=== PATIENT | male | born 1960 | race Caucasian/White ===

== ENCOUNTER 2023-04-09 06:25 | Inpatient (IN) | payer MEDICARE, MEDICAID, SELFPAY ==
[2023-04-09] VITALS (7 sets, daily range): BP systolic 90–143; BP diastolic 51–73; PULSE 69–104; RESP 15–22; TEMP 36.3–38.3; O2SAT 92–98; BMI 26.4; BMI 28.0
--- NOTE | 2023-04-09 06:42 | ECG_ITS ---
Test Reason : WEAKNESS Blood Pressure : / mmHG Vent. Rate : 091 BPM Atrial Rate : 091 BPM P-R Int : 138 ms QRS Dur : 092 ms QT Int : 374 ms P-R-T Axes : 038 039 042 degrees QTc Int : 460 ms Normal sinus rhythm with sinus arrhythmia Normal ECG No previous ECGs available Referred By: Heidy Muhammad Electronically Signed By:KIMBERLY HOUSER MD
--- NOTE | 2023-04-09 06:45 | ED.GENADULT ---
HPI - General Adult General Chief complaint: General Medical Stated complaint: Possible Sepsis Alert Time Seen by Provider: 04/09/23 06:32 Source: EMS Mode of arrival: EMS Limitations: no limitations History of Present Illness HPI narrative: 82-year-old male who has a complex medical history including multiple sclerosis, bed-bound, chronic Ontiveros catheter, colostomy, chronic coccyx wound with wound VAC with multiple hospitalizations for osteomyelitis who presents to the ER with lethargy, nausea, fever since yesterday. Patient also complaining of some suprapubic discomfort and states his Ontiveros catheter was changed 2 days ago by a visiting nurse. He denies any vomiting, abdominal pain, diarrhea, headache, neck pain, neck stiffness, skin rash, chest pain, shortness of breath. Related Data Home Medications Medication Instructions Recorded Confirmed baclofen 20 mg tablet 20 mg PO QID 04/09/23 04/09/23 calcium carbonate 200 mg calcium 400 mg PO DAILY 04/09/23 04/09/23 (500 mg) chewable tablet (Tums) cholecalciferol (vitamin D3) 50 50 mcg PO DAILY 04/09/23 04/09/23 mcg (2,000 unit) capsule (Vitamin D3) docusate sodium 100 mg capsule 100 mg PO BID 04/09/23 04/09/23 gabapentin 300 mg capsule 900 mg PO TID 04/09/23 04/09/23 meloxicam 15 mg tablet 15 mg PO DAILY 04/09/23 04/09/23 methenamine hippurate 1 gram tablet 1 g PO BID 04/09/23 04/09/23 nystatin 100,000 unit/gram topical 1 appl topical BID PRN Rash 04/09/23 04/09/23 powder (Nystop) oxycodone-acetaminophen 5 mg-325 1 tab PO QID PRN Pain 04/09/23 04/09/23 mg tablet Allergies Allergy/AdvReac Type Severity Reaction Status Date / Time No Known Allergies Allergy Verified 04/09/23 10:18 Review of Systems Review of Systems: Yes all other systems are reviewed and are negative Constitutional: Constitutional: Reports no additional constitutional complaints, Denies body ache(s), Denies chills, Reports fever(s), Denies headache(s) and Reports weakness Eyes: Eyes: Reports no additional eye complaints and Denies change in vision ENT: Reports system reviewed and no additional complaints, except as documented, Denies dizziness, Denies headache(s), Denies nasal congestion, Denies nasal discharge and Denies neck pain Cardiovascular: Cardiovascular: Reports no additional cardiovascular complaints, Denies chest pain, Denies leg edema and Denies dyspnea Respiratory: Respiratory: Reports no additional respiratory complaints, Denies cough and Denies dyspnea Gastrointestinal: Gastrointestinal: Reports no additional gastrointestinal complaints, Reports abdominal pain, Denies diarrhea, Reports nausea and Denies vomiting Genitourinary: Genitourinary: Denies urinary incontinence Musculoskeletal: Musculoskeletal: Reports no additional musculoskeletal complaints, Denies back pain, Denies arthralgias, Denies joint swelling, Denies neck pain, Denies numbness and Denies tingling Integumentary/Breasts: Skin/Breast: Reports system reviewed and no additional complaints, except as docu and Denies rash Neurologic: Reports system reviewed and no additional complaints, except as documented, Denies dizziness, Denies headache(s), Denies numbness, Denies tingling and Reports weakness PMFSH Past Medical History Attestation statement: The following information was validated with the patient. Source: old records reviewed and nursing notes reviewed Social History Social History Advance Directives: Yes Advance Directives Information Provided: Yes Advance Directives on File: No Physical Exam ED Vital Signs: Vital Signs - 24 hr 04/09/23 06:32 04/09/23 07:04 04/09/23 08:59 Temperature 101.0 F H 98.4 F Pulse Rate 99 94 100 Respiratory Rate 15 20 22 H Blood Pressure 114/65 114/64 Pulse Oximetry 92 93 93 Oxygen Delivery Method Room Air Room Air Room Air BMI result Body Mass Index 26.4 Const General: cooperative, healthy appearing, comfortable and no acute distress Orientation/consciousness: patient oriented x3 Limitations: no limitations HENMT Head: Yes normal to inspection Ears: hearing grossly normal bilaterally Eyes General: appearance normal, both eyes and all related structures Pupils: Equal, round and reactive pupils present Neck Neck: Yes normal visual inspection, Yes full ROM, Yes no lymphadenopathy and Yes no meningeal signs Chest Chest palpation & inspection: normal inspection of the chest Resp Effort & Inspection: normal respiratory effort Auscultation: clear to auscultation bilaterally Cardio Rate: regular rate Rhythm: regular rhythm Peripheral pulses: Peripheral pulses 2+ throughout GI Other: +colostomy present LLQ Palpation (GI): Soft to palpation and nontender General: Yes no CVA tenderness Back/Spine/Pelvis Other: Back: no CVA tenderness Skin General skin exam: no rashes or lesions noted Neuro Other: +weakness all four extremities with increased tone in LE General: patient oriented x3 and no meningeal signs Cranial nerves: Yes Equal, round and reactive pupils present Extrem Other: +contracures General: Yes no pedal edema and Yes no calf tenderness Course Course Course Narrative: 899-CT abdomen pelvis consistent with osteomyelitis of the sacral wound. Will add vanco. UA also c/w with UTI however chronic ontiveros. Culture sent. Will admit Medications Administered Generic Name Dose Route Start Last Admin Trade Name Freq PRN Reason Stop Dose Admin Piperacillin Sod/Tazobactam 50 mls @ 100 mls/hr 04/09/23 09:45 04/09/23 10:52 Sod 3.375 gm/ Sodium Chloride IV 100 mls/hr Q6H RAVI Administration Discontinued Medications Generic Name Dose Route Start Last Admin Trade Name Freq PRN Reason Stop Dose Admin Acetaminophen 650 mg 04/09/23 06:43 04/09/23 07:03 Acetaminophen 325 Mg Tablet PO 04/09/23 06:44 650 mg ONCE ONE Administration Sodium Chloride 1,000 mls @ 999 mls/hr 04/09/23 06:42 04/09/23 08:30 Ns IV 04/09/23 07:42 Infused .Q1H1M STA Infusion Cefepime HCl 2 gm/ Sodium 50 mls @ 100 mls/hr 04/09/23 06:45 04/09/23 08:30 Chloride IV 04/09/23 07:14 Infused ONCE ONE Infusion Vancomycin HCl 2,000 mg in 500 mls @ 250 mls/hr 04/09/23 08:57 04/09/23 09:16 Vancomycin/Ns IV 04/09/23 10:56 250 mls/hr ONCE ONE Administration Iohexol 85 ml 04/09/23 08:25 04/09/23 08:26 Iohexol 350 Mg/Ml 100 Ml Infus..Btl IV 04/09/23 08:26 85 ml ONCE ONE Administration Morphine Sulfate 4 mg 04/09/23 10:19 04/09/23 10:52 Morphine Sulfate 4 Mg/Ml Cartridge IVPUSH 04/09/23 10:20 4 mg ONCE ONE Administration Protocol Medical Decision Making Medical Decision Making [facility] Narrative: This 62-year-old male who has a complex medical history including MS, bedbound, chronic colostomy/chronic Ontiveros/wound VAC due to coccyx wound who presents to the ER with complaints of lethargy, fevers, nausea since yesterday. On arrival patient is febrile with a temp of 101 degrees F. Patient took 1 Percocet prior to arrival which he takes for chronic pain. Patient is alert and oriented. He has clear lung sounds, soft abdomen, no meningeal signs or lymphadenopathy. He does have a wound VAC present to the coccyx with some mild erythema surrounding the site. There is no tracking to the perineum. Patient will need labs including blood cultures and lactic acid, UA, chest x-ray, COVID screen, CT with contrast At this time infection is suspected. Antibiotics ordered. Anticipate admit Sepsis alert started Differential Diagnosis Differential Diagnoses: The differential diagnosis associated with the presentation includes UTI, coccyx osteomyelitis, pneumonia, pyelonephritis low concern for fourniers gangrene, nec fasc Admission/Observation Consideration of admission/observation: Escalation of care including admission/observation considered Patient with osteomyelitis of the sacral wound question acute versus chronic, UTI, fever with leukocytosis necessitating admission for IV antibiotics and further evaluation Consult Healthcare Provider Management of the patient was discussed with: Hospitalist Alejandra Fox CATTERY OPERATOR-accepted admission at 0900 Lab Data [facility] Lab Attestation statement: I reviewed the patient's lab results. 04/09/23 06:46 04/09/23 06:46 Labs: Lab Results 04/09/23 04/09/23 04/09/23 Range/Units 06:46 06:46 06:46 WBC 15.8 H (4.8-10.8) X10*3/uL RBC 4.60 (4.60-5.80) X10*6/uL Hgb 12.7 L (14.0-18.0) g/dl Hct 38.2 L (42.0-52.0) % MCV 83.0 (80.0-98.0) fL MCH 27.6 (27.0-33.0) pg MCHC 33.2 (31.0-36.0) g/dl RDW 14.7 (11.0-16.0) % Plt Count 346 (160-400) X10*3/uL MPV 8.3 L (9.4-12.4) fL Immature Gran % (Auto) 0.4 (0.0-0.4) % Neut % (Auto) 93.8 H (45-73) % Lymph % (Auto) 2.1 L (20-40) % [place] % (Auto) 3.4 (2-11) % Eos % (Auto) 0.1 (0-4) % Baso % (Auto) 0.2 (0-2) % Lymph # (Auto) 0.3 L (1.2-4.9) X10*3/uL [place] # (Auto) 0.5 (0.1-1.2) X10*3/uL Eos # (Auto) 0.0 (0.0-0.4) X10*3/uL Baso # (Auto) 0.0 (0.0-0.2) X10*3/uL Abs Immat Gran (auto) 0.06 H (0.00-0.03) X10*3/uL Absolute Neuts (auto) 14.9 H (2.0-8.3) x10*3/uL Absolute Nucleated RBC 0.000 (0.0-0.012) X10*3/uL Nucleated RBC % (auto) 0.0 (0.0-0.2) /100WBC Smear Tech's Comments VERIFIED PT 13.3 H (10.0-13.1) SEC INR 1.2 H (0.9-1.1) Sodium 127 L (135-145) mmol/L Potassium 3.8 (3.3-5.1) mmol/L Chloride 92 L (96-108) mmol/L Carbon Dioxide 24 (22-29) mmol/L Anion Gap 15 (12-20) BUN 12 (9-16) mg/dL Creatinine 0.61 (0.5-1.4) mg/dL Estim Creat Clear Calc 143.7 Estimated GFR > 60 Random Glucose 112 (60-115) mg/dL Lactic Acid (0.5-2.0) mmol/L Calcium 9.4 (8.4-10.2) mg/dL Magnesium 1.7 (1.6-2.6) mg/dL Total Bilirubin 0.6 (0.0-1.0) mg/dL Direct Bilirubin 0.2 (0.0-0.5) mg/dL AST 14 (5-37) U/L ALT 11 (0-40) U/L Alkaline Phosphatase 36 L (39-117) U/L Total Creatine Kinase 43 (38-174) U/L Troponin I High Sens (<3.5-35.0) ng/L Total Protein 7.0 (6.5-8.0) g/dL Albumin 3.3 L (3.5-5.0) g/dL Urine Color Urine Appearance Urine pH (5.0-9.0) Ur Specific [place] (1.005-1.025) Urine Protein (Neg-Trace) mg/dL Urine Glucose (UA) (Negative) mg/dL Urine Ketones (Negative) mg/dL Urine Blood (Negative) Urine Nitrite (Negative) Ur Leukocyte Esterase (Negative) Urine RBC (0-2) /HPF Urine WBC (0-5) /HPF Urine WBC Clumps Ur Squamous Epith Cells (0-2) /HPF Urine Bacteria (None Seen) Hyaline Casts (0-2) /LPF COVID-19 (ZULEIMA) (Negative) COVID-19 Clin Com 04/09/23 04/09/23 04/09/23 Range/Units 06:46 06:46 06:46 WBC (4.8-10.8) X10*3/uL RBC (4.60-5.80) X10*6/uL Hgb (14.0-18.0) g/dl Hct (42.0-52.0) % MCV (80.0-98.0) fL MCH (27.0-33.0) pg MCHC (31.0-36.0) g/dl RDW (11.0-16.0) % Plt Count (160-400) X10*3/uL MPV (9.4-12.4) fL Immature Gran % (Auto) (0.0-0.4) % Neut % (Auto) (45-73) % Lymph % (Auto) (20-40) % [place] % (Auto) (2-11) % Eos % (Auto) (0-4) % Baso % (Auto) (0-2) % Lymph # (Auto) (1.2-4.9) X10*3/uL [place] # (Auto) (0.1-1.2) X10*3/uL Eos # (Auto) (0.0-0.4) X10*3/uL Baso # (Auto) (0.0-0.2) X10*3/uL Abs Immat Gran (auto) (0.00-0.03) X10*3/uL Absolute Neuts (auto) (2.0-8.3) x10*3/uL Absolute Nucleated RBC (0.0-0.012) X10*3/uL Nucleated RBC % (auto) (0.0-0.2) /100WBC Smear Tech's Comments PT (10.0-13.1) SEC INR (0.9-1.1) Sodium (135-145) mmol/L Potassium (3.3-5.1) mmol/L Chloride (96-108) mmol/L Carbon Dioxide (22-29) mmol/L Anion Gap (12-20) BUN (9-16) mg/dL Creatinine (0.5-1.4) mg/dL Estim Creat Clear Calc Estimated GFR Random Glucose (60-115) mg/dL Lactic Acid 0.7 (0.5-2.0) mmol/L Calcium (8.4-10.2) mg/dL Magnesium (1.6-2.6) mg/dL Total Bilirubin (0.0-1.0) mg/dL Direct Bilirubin (0.0-0.5) mg/dL AST (5-37) U/L ALT (0-40) U/L Alkaline Phosphatase (39-117) U/L Total Creatine Kinase (38-174) U/L Troponin I High Sens < 2.7 (<3.5-35.0) ng/L Total Protein (6.5-8.0) g/dL Albumin (3.5-5.0) g/dL Urine Color Yellow Urine Appearance Cloudy Urine pH 6.5 (5.0-9.0) Ur Specific [place] 1.010 (1.005-1.025) Urine Protein Trace (Neg-Trace) mg/dL Urine Glucose (UA) Negative (Negative) mg/dL Urine Ketones Negative (Negative) mg/dL Urine Blood Large (3+) H (Negative) Urine Nitrite Negative (Negative) Ur Leukocyte Esterase Large (3+) H (Negative) Urine RBC 3-5 H (0-2) /HPF Urine WBC >50 H (0-5) /HPF Urine WBC Clumps Present Ur Squamous Epith Cells 0-2 (0-2) /HPF Urine Bacteria 4+ (None Seen) Hyaline Casts 3-5 (0-2) /LPF COVID-19 (ZULEIMA) (Negative) COVID-19 Clin Com 04/09/23 Range/Units 07:19 WBC (4.8-10.8) X10*3/uL RBC (4.60-5.80) X10*6/uL Hgb (14.0-18.0) g/dl Hct (42.0-52.0) % MCV (80.0-98.0) fL MCH (27.0-33.0) pg MCHC (31.0-36.0) g/dl RDW (11.0-16.0) % Plt Count (160-400) X10*3/uL MPV (9.4-12.4) fL Immature Gran % (Auto) (0.0-0.4) % Neut % (Auto) (45-73) % Lymph % (Auto) (20-40) % [place] % (Auto) (2-11) % Eos % (Auto) (0-4) % Baso % (Auto) (0-2) % Lymph # (Auto) (1.2-4.9) X10*3/uL [place] # (Auto) (0.1-1.2) X10*3/uL Eos # (Auto) (0.0-0.4) X10*3/uL Baso # (Auto) (0.0-0.2) X10*3/uL Abs Immat Gran (auto) (0.00-0.03) X10*3/uL Absolute Neuts (auto) (2.0-8.3) x10*3/uL Absolute Nucleated RBC (0.0-0.012) X10*3/uL Nucleated RBC % (auto) (0.0-0.2) /100WBC Smear Tech's Comments PT (10.0-13.1) SEC INR (0.9-1.1) Sodium (135-145) mmol/L Potassium (3.3-5.1) mmol/L Chloride (96-108) mmol/L Carbon Dioxide (22-29) mmol/L Anion Gap (12-20) BUN (9-16) mg/dL Creatinine (0.5-1.4) mg/dL Estim Creat Clear Calc Estimated GFR Random Glucose (60-115) mg/dL Lactic Acid (0.5-2.0) mmol/L Calcium (8.4-10.2) mg/dL Magnesium (1.6-2.6) mg/dL Total Bilirubin (0.0-1.0) mg/dL Direct Bilirubin (0.0-0.5) mg/dL AST (5-37) U/L ALT (0-40) U/L Alkaline Phosphatase (39-117) U/L Total Creatine Kinase (38-174) U/L Troponin I High Sens (<3.5-35.0) ng/L Total Protein (6.5-8.0) g/dL Albumin (3.5-5.0) g/dL Urine Color Urine Appearance Urine pH (5.0-9.0) Ur Specific [place] (1.005-1.025) Urine Protein (Neg-Trace) mg/dL Urine Glucose (UA) (Negative) mg/dL Urine Ketones (Negative) mg/dL Urine Blood (Negative) Urine Nitrite (Negative) Ur Leukocyte Esterase (Negative) Urine RBC (0-2) /HPF Urine WBC (0-5) /HPF Urine WBC Clumps Ur Squamous Epith Cells (0-2) /HPF Urine Bacteria (None Seen) Hyaline Casts (0-2) /LPF COVID-19 (ZULEIMA) Negative (Negative) COVID-19 Clin Com See Note Independent Interpretation I performed an independent interpretation of an: Plain X-Ray and CT Scan Interpretation: I independently reviewed the chest x-ray and CT A/P and agree with radiologist's report I independently reviewed the EKG which shows normal sinus rhythm with a rate 94, normal HI, normal QRS, normal QT Radiology Impression Discussion of test interpretation with radiology: I have reviewed the radiologist's reading. Radiologist Impression: [address] [id number] XRay Report Signed Patient: Jono Davey#: [id number] : 1960 Acct:[id number] Age/Sex: 62 / M ADM Date: 04/09/23 Loc: HO.ED Attending Dr: Ordering Physician: Heidy Israel NP Date of Service: 04/09/23 Procedure(s): XR chest 1V Accession Number(s): [id number] cc: Heidy Israel NP~ EXAMINATION: XR CHEST CLINICAL INFORMATION: Fever COMPARISON: None available. TECHNIQUE: Frontal view of the chest was obtained. FINDINGS: A few linear, streaky opacities of atelectasis are present at the left base. The left lateral costophrenic sulcus is ill-defined (possible trace pleural effusion). The left diaphragm is mildly elevated. Cardiac silhouette has normal size and contour. Pulmonary vascular pattern is normal. The visualized bones are intact. XR/XR chest 1V IMPRESSION: *? A few linear, streaky opacities of atelectasis are present at the left base. *? No consolidation is seen. No overt pneumonia. *? Possible trace left pleural effusion. ? FINDINGS: LUNG BASES: There is a left posterior pleural thickening with chronic scarring or atelectasis.? LIVER, GALLBLADDER, AND BILIARY TREE: The liver is normal in size, shape, and attenuation. There is a small 1.2 cm hypodensity seen in the right hepatic lobe measuring cyst. Density. No additional lesions seen. No intrahepatic ductal dilatation. The gallbladder is unremarkable with no evidence of radiopaque gallstones, gallbladder wall thickening, or obvious pericholecystic inflammatory changes.? PANCREAS: Unremarkable.? SPLEEN: Unremarkable.? ADRENAL GLANDS: Unremarkable.? KIDNEYS AND URETERS: The kidneys are normal in size, shape, and attenuation. No radiopaque calculi seen.There is a 9 mm hypodensity in the upper midpole cortex right kidney measuring cyst is ready. There is bilateral hydroureteronephrosis without any obstructive etiology seen. BLADDER: The bladder is significant distended extending to the umbilicus likely from ureteral obstruction. Question urethral stricture or valve prostate enlargement.? GASTROINTESTINAL TRACT: Moderate scattered stool and gas is seen throughout the colon without distention. There is a left mid quadrant colostomy. A proximal blind ending sigmoid colon is seen ABDOMINAL WALL: No significant hernia is appreciated.? LYMPH NODES: Normal. VASCULAR: Mild arthroscopic changes of abdominal aorta noted without aneurysmal dilatation. PELVIC VISCERA: No free fluid or free air seen. There is midline decubitus sacrococcygeal ulcer with soft tissue gas and induration. The wound is open but no drainable abscess seen. There has been erosion of distal sacrum and ? coccyx with sclerosis involving the distal sacral bone suggestive of osteomyelitis. There is presacral soft tissue thickening but no abscess seen either. OSSEOUS STRUCTURES: Besides sacrococcygeal ostium myelitis rest of the thoracolumbar and sacral spine is unremarkable. No fracture seen.? CT/CT abdomen pelvis w IV con IMPRESSION: Osteomyelitis of the sacrococcygeal spine from an open midline sacral decubitus ulcer. There is significant induration and debris within the open ulcer. No discrete abscess is seen. There is mild presacral soft tissue swelling. ? Bilateral mild to moderate hydroureteronephrosis likely secondary to ureteral spasm, stricture or mild prostate enlargement. ? Mild left posterior pleural thickening with left lower lobe scarring and/or atelectasis. ? Punctate hepatic and upper/mid pole right renal cysts. ? Fleischner guidelines were followed. Independent Historian Clinical information obtained from an independent historian. History obtained from or confirmed by: EMS clinical information was obtained from EMS and confirmed with the patient Critical Care Time Critical Care Time Critical Care Time: Yes Total Critical Care Time: 45 Attestation: d/w with patient and family, admission for osteomyelitis/SIRS, spoke to medicine for admit Discharge Plan Discharge Clinical Impression: Osteomyelitis, Acute UTI, Leukocytosis Patient Disposition: Admitted As Inpatient
--- NOTE | 2023-04-09 09:56 | PC.NURSE ---
wound vac removed by provider, dressing applied to site.
--- NOTE | 2023-04-09 10:18 | PHA.MEDREC ---
Pharmacy Consult ? Medication Reconciliation Pharmacy has completed the medication reconciliation. spoke with patient to confirm medications. He says the baclofen is QID but last claim is from 01/04/23 for a 5 day supply.
--- NOTE | 2023-04-09 10:20 | PHA.PROG ---
Admission Date/Time: April 09, 2023 09:42 Indication: SKIN/STRUCTURE Weight in k.718 kg Adjusted body weight in K.227 [place] body weight in K.9 Obesity Dosing Indication % IBW: Serum Creatinine - Last 168 Hours 04/09/23 06:46 Creatinine 0.61 Estimated CrCl and GFR - Last 168 Hours 04/09/23 06:46 Estim Creat Clear Calc 143.7 Estimated GFR > 60 Vancomycin Loading Dose: 2000 MG Current Vancomycin Dosing Regimen: 1500 MG Q12 Vancomycin Monitoring using AUC goal of 400 - 600 range with trough as surrogate marker: 554 Date and Time for next Vancomycin Level to be drawn: 04/10/23 @1900 Pharmacist Comments on Vancomycin Plan: Vancomycin dosing will take advantage of [employer] as a clinical decision support tool that uses Bayesian modeling to calculate individual patient's pharmacokinetic parameters and forecast the patient's drug concentration time course with the target goal AUC 24 range of 400 - 600 mg/L/hr.
--- NOTE | 2023-04-09 12:02 | PC.NURSE ---
Patient stating that he doesn't think that his catheter is working properly, catheter changed and 1100 ml of urine came out. Patient stating that some relief after catheter change.
--- NOTE | 2023-04-09 14:35 | PM.IMHP ---
History of Present Illness Date of Service: 04/09/23 Chief Complaint: fever 62-year-old man presenting from home with fever, general malaise and nausea over the last several days. He does have a history of MS and is mostly bed/wheelchair bound. He denied any recent travel, sick contacts, chest pain, shortness of breath, vomiting, diarrhea, recent illness. His last hospitalization was in October of 2022 at [facility]. He has been in his usual state of health more recently. His sodium was low at 127, white blood cell count 15.8, all other labs are within acceptable limits. He was noted to have fever of 101.0, tachycardia, tachypnea, normal lactic acid. UA was positive. In the ER he received 1 L of IV fluid, Tylenol, cefepime, vancomycin, Zosyn. He will be admitted for further management and treatment of sepsis secondary to UTI and chronic osteomyelitis. Review of Systems Review of Systems: Denies any recent fever chills or decrease in appetite respiratory denies any shortness of breath coverage production cardiovascular Denied chest pain gastrointestinal denies any dysphagia abdominal pain nausea vomiting or diarrhea genitourinary denies any dysuria frequency or hematuria musculoskeletal non ambulatory neuropsych denies any weakness or seizures all other systems reviewed are negative [facility] Medical History (Updated 04/09/23 @ 13:08 by Nancy Chaidez RN) Multiple sclerosis Osteomyelitis Sacral decubitus ulcer Social History Household Members: None Household Members Other:: Daughter lives upstairs in seperate apartment Housing: Apartment Do you presently have visiting nurse or other home services: Yes Patient Tobacco Use Status: Never used Tobacco Use of substances other than those prescribed or required for medical reasons: No Currently Displaying Signs/Symptoms of Drug Intoxication Withdrawal: No Have you been hit, kicked, punched, or otherwise hurt by someone within the past year? If so, by whom?: No Do you feel safe in your current relationship?: No Current Relationship Is there a partner from a previous relationship who is making you feel unsafe now?: No Are you made to feel afraid or neglected: No Spiritual Healthcare Practices: none per patient Spiritism Healthcare Practices: none per patient Cultural Healthcare Practices: none per patient Advance Directives: Yes Advance Directives Information Provided: Yes Advance Directives on File: No Advance Directives Date on File: 04/09/23 Do you have thoughts of harming others: None Do you have a plan to hurt others: No Plan Recently lost weight without trying: No Eating poorly because of decreased appetite: No Nutrition Risks: No Nutritional Risk Poor oral hygiene: No Meds Allergies Allergy/AdvReac Type Severity Reaction Status Date / Time No Known Allergies Allergy Verified 04/09/23 10:18 Active Medications: Current Medications Acetaminophen (Acetaminophen 325 Mg Tablet) 650 mg PO Q6H PRN PRN Reason: Pain, Mild (Pain Scale 1-3) Baclofen (Baclofen 20 Mg Tablet) 20 mg PO QID [facility] Docusate Sodium (Docusate Sodium 100 Mg Capsule) 100 mg PO BID [facility] Gabapentin (Gabapentin 300 Mg Capsule) 900 mg PO TID [facility] Heparin Sodium (Porcine) (Heparin Sodium,Porcine 5,000 Unit/Ml Vial) 5,000 unit SUBCUT Q12H [facility] Piperacillin Sod/Tazobactam (Sod 3.375 gm/ Sodium Chloride) 50 mls @ 100 mls/hr IV Q6H [facility] Last Infusion: 04/09/23 11:47 Dose: Infused Vancomycin HCl 1,500 mg/ (Sodium Chloride) 500 mls @ 333.333 mls/hr IV Q12H [facility] Non-Formulary Medication (Calcium Carbonate [Tums]) 400 mg PO DAILY [facility] Non-Formulary Medication (Meloxicam) 15 mg PO DAILY [facility] Non-Formulary Medication (Methenamine Hippurate) 1 gm PO BID [facility] Non-Formulary Medication (Oxycodone-Acetaminophen) 1 tab PO QID PRN PRN Reason: Pain Ondansetron HCl (Ondansetron Hcl 4 Mg/2 Ml Vial) 4 mg IVPUSH Q8H PRN PRN Reason: Nausea and Vomiting Pharmacy Consult (Consult Rx Perform Med Rec) 1 each MISCELLANE ONCE PRN PRN Reason: Consult order Pharmacy Consult (Consult Rx Vancomycin Dosing) 1 each MISCELLANE DAILY PRN PRN Reason: Consult order Sodium Chloride (0.9 % Sodium Chloride Flush 3 Ml Syringe) 3 ml IVFLUSH QSHIFT [facility] Vitamin D (Cholecalciferol (Vitamin D3) 25 Mcg Tablet) 50 mcg PO DAILY [facility] Home Medications Medication Instructions Recorded Confirmed Last Taken Type baclofen 20 mg tablet 20 mg PO QID 04/09/23 04/09/23 04/08/23 20:00 History calcium carbonate 200 mg calcium 400 mg PO DAILY 04/09/23 04/09/23 04/08/23 07:00 History (500 mg) chewable tablet (Tums) cholecalciferol (vitamin D3) 50 50 mcg PO DAILY 04/09/23 04/09/23 04/08/23 07:00 History mcg (2,000 unit) capsule (Vitamin D3) docusate sodium 100 mg capsule 100 mg PO BID 04/09/23 04/09/23 04/08/23 20:00 History gabapentin 300 mg capsule 900 mg PO TID 04/09/23 04/09/23 04/08/23 20:00 History meloxicam 15 mg tablet 15 mg PO DAILY 04/09/23 04/09/23 04/08/23 20:00 History methenamine hippurate 1 gram tablet 1 g PO BID 04/09/23 04/09/23 Unknown History nystatin 100,000 unit/gram topical 1 appl topical BID PRN Rash 04/09/23 04/09/23 04/08/23 07:00 History powder (Nystop) oxycodone-acetaminophen 5 mg-325 1 tab PO QID PRN Pain 04/09/23 04/09/23 Unknown History mg tablet Physical Exam Vital Signs and Narrative: Vital Signs: Last Vital Signs Temp 97.3 F 04/09/23 12:43 Pulse 101 H 04/09/23 12:43 Resp 20 04/09/23 12:43 BP 143/73 H 04/09/23 12:43 Pulse Ox 98 04/09/23 12:43 O2 Del Method Room Air 04/09/23 12:43 BMI result Body Mass Index 28.0 Appearing in no acute distress head is normocephalic atraumatic eyes pupils are PERRLA sclera is anicteric mouth throat mucous membranes are intact and moist neck is supple no lymphadenopathy, no JVD noted lung sounds are clear to auscultation heart regular rate rhythm, clear S1, S2 positive bowel sounds, abdomen is soft, nontender neuro patient is alert x3, no focal deficits Nonambulatory Results Labs 04/09/23 06:46 04/09/23 06:46 Labs: Laboratory Results - last 24 hr 04/09/23 04/09/23 04/09/23 06:46 06:46 06:46 MCV 83.0 MCH 27.6 MCHC 33.2 RDW 14.7 Plt Count 346 MPV 8.3 L Immature Gran % (Auto) 0.4 Neut % (Auto) 93.8 H Lymph % (Auto) 2.1 L [place] % (Auto) 3.4 Eos % (Auto) 0.1 Baso % (Auto) 0.2 Lymph # (Auto) 0.3 L [place] # (Auto) 0.5 Eos # (Auto) 0.0 Baso # (Auto) 0.0 Abs Immat Gran (auto) 0.06 H Absolute Neuts (auto) 14.9 H Absolute Nucleated RBC 0.000 Nucleated RBC % (auto) 0.0 Smear Tech's Comments VERIFIED PT 13.3 H INR 1.2 H Anion Gap 15 Estim Creat Clear Calc 143.7 Estimated GFR > 60 Random Glucose 112 Lactic Acid Calcium 9.4 Magnesium 1.7 Total Bilirubin 0.6 Direct Bilirubin 0.2 AST 14 ALT 11 Alkaline Phosphatase 36 L Total Creatine Kinase 43 Troponin I High Sens Total Protein 7.0 Albumin 3.3 L Urine Color Urine Appearance Urine pH Ur Specific [place] Urine Protein Urine Glucose (UA) Urine Ketones Urine Blood Urine Nitrite Ur Leukocyte Esterase Urine RBC Urine WBC Urine WBC Clumps Ur Squamous Epith Cells Urine Bacteria Hyaline Casts COVID-19 ([facility]) COVID-19 Clin Com 04/09/23 04/09/23 04/09/23 06:46 06:46 06:46 MCV MCH MCHC RDW Plt Count MPV Immature Gran % (Auto) Neut % (Auto) Lymph % (Auto) [place] % (Auto) Eos % (Auto) Baso % (Auto) Lymph # (Auto) [place] # (Auto) Eos # (Auto) Baso # (Auto) Abs Immat Gran (auto) Absolute Neuts (auto) Absolute Nucleated RBC Nucleated RBC % (auto) Smear Tech's Comments PT INR Anion Gap Estim Creat Clear Calc Estimated GFR Random Glucose Lactic Acid 0.7 Calcium Magnesium Total Bilirubin Direct Bilirubin AST ALT Alkaline Phosphatase Total Creatine Kinase Troponin I High Sens < 2.7 Total Protein Albumin Urine Color Yellow Urine Appearance Cloudy Urine pH 6.5 Ur Specific [place] 1.010 Urine Protein Trace Urine Glucose (UA) Negative Urine Ketones Negative Urine Blood Large (3+) H Urine Nitrite Negative Ur Leukocyte Esterase Large (3+) H Urine RBC 3-5 H Urine WBC >50 H Urine WBC Clumps Present Ur Squamous Epith Cells 0-2 Urine Bacteria 4+ Hyaline Casts 3-5 COVID-19 ([facility]) COVID-19 Clin Com 04/09/23 07:19 MCV MCH MCHC RDW Plt Count MPV Immature Gran % (Auto) Neut % (Auto) Lymph % (Auto) [place] % (Auto) Eos % (Auto) Baso % (Auto) Lymph # (Auto) [place] # (Auto) Eos # (Auto) Baso # (Auto) Abs Immat Gran (auto) Absolute Neuts (auto) Absolute Nucleated RBC Nucleated RBC % (auto) Smear Tech's Comments PT INR Anion Gap Estim Creat Clear Calc Estimated GFR Random Glucose Lactic Acid Calcium Magnesium Total Bilirubin Direct Bilirubin AST ALT Alkaline Phosphatase Total Creatine Kinase Troponin I High Sens Total Protein Albumin Urine Color Urine Appearance Urine pH Ur Specific [place] Urine Protein Urine Glucose (UA) Urine Ketones Urine Blood Urine Nitrite Ur Leukocyte Esterase Urine RBC Urine WBC Urine WBC Clumps Ur Squamous Epith Cells Urine Bacteria Hyaline Casts COVID-19 ([facility]) Negative COVID-19 Clin Com See Note Imaging Radiologist's Impressions: Impressions Chest X-Ray 04/09/23 06:57 IMPRESSION: * A few linear, streaky opacities of atelectasis are present at the left base. * No consolidation is seen. No overt pneumonia. * Possible trace left pleural effusion. Abdomen/Pelvis CT 04/09/23 08:26 IMPRESSION: Osteomyelitis of the sacrococcygeal spine from an open midline sacral decubitus ulcer. There is significant induration and debris within the open ulcer. No discrete abscess is seen. There is mild presacral soft tissue swelling. Bilateral mild to moderate hydroureteronephrosis likely secondary to ureteral spasm, stricture or mild prostate enlargement. Mild left posterior pleural thickening with left lower lobe scarring and/or atelectasis. Punctate hepatic and upper/mid pole right renal cysts. Fleischner guidelines were followed. Assessment and Plan (1) Osteomyelitis: Status: Acute (2) Acute UTI: Status: Acute Plan 62 year old man admitted with fever, lethargy and nausea. He has a hx of MS and is bed and wheelchair bound. Sepsis secondary to UTI more likely secondary to UTI rather than coccyx wound Rocephin follow urine cx Chronic osteomyelitis with unstagable coccyx wound wound bed and surrounding skin look good wound vac removed general surgery consult for assessment for debridement Dry dressing for now Hyponatremia NA 127 likely from hypovolemia received 1 liter IV fluids check sodium this afternoon MS baseline continue baclofen, neurontin DVT prophylaxis with Heparin Full code Two inpatient midnights for treatment of sepsis secondary to urinary tract infection requiring IV antibiotics and close monitoring Time Spent With Patient Time: Total time managing care of this patient today ____ minutes. Quality Stroke Does the patient have a stroke diagnosis?: No VTE Prior VTE?: No VTE Risk Level:: Medical - moderate - high VTE Device Contraindication: Treatment Not Indicated VTE Drug Contraindication: N/A - Med Ordered
[2023-04-09] MEDS: Gabapentin 300 MG CAPSULE 900 MG PO ×2 (14:46→20:30)
[2023-04-09] MEDS: Heparin Sodium,Porcine 5,000 UNIT/ML VIAL 5000 UNIT SUBCUT (14:46)
[2023-04-09] MEDS: Baclofen 20 MG TABLET PO ×2 (16:02→20:30)
[2023-04-09] MEDS: oxyCODONE HCl Immed Release 5 MG TABLET PO (20:29)
[2023-04-09] MEDS: Docusate Sodium 100 MG CAPSULE PO (20:30)
[2023-04-09] MEDS: NaPROXEN 500 MG TABLET PO (20:30)
[2023-04-10] MEDS: Heparin Sodium,Porcine 5,000 UNIT/ML VIAL 5000 UNIT SUBCUT ×2 (03:18→15:44)
[2023-04-10 03:19] VITALS: BP 96/55; PULSE 67; RESP 18; TEMP 36.2; O2SAT 97
[2023-04-10] MEDS: Acetaminophen 325 MG TABLET 650 MG PO ×3 (03:41→20:39)
[2023-04-10 07:45] VITALS: BP 102/59; PULSE 70; RESP 18; TEMP 36.3; O2SAT 98
--- NOTE | 2023-04-10 08:32 | MHC.CM.PN ---
CM met with Patient at bedside and addressed IMM with him, providing him with the original and placing a copy on the chart. Patient lives alone in an apartment and he is mostly w/c/bed bound r/t MS. Home/resume said services is the goal and CM has initiated and will follow for dc planning.Patient's Daughter/Loida is the HCP. Patient is sisiid arlene'd and the PCP/JUTE BAG CLIPPER is Ambrocio Tenorio.
[2023-04-10] MEDS: Gabapentin 300 MG CAPSULE 900 MG PO ×3 (08:39→23:01)
[2023-04-10] MEDS: NaPROXEN 500 MG TABLET PO ×2 (08:40→20:40)
[2023-04-10] MEDS: Docusate Sodium 100 MG CAPSULE PO ×2 (08:40→20:40)
[2023-04-10] MEDS: Baclofen 20 MG TABLET PO ×4 (08:40→20:39)
[2023-04-10] MEDS: oxyCODONE HCl Immed Release 5 MG TABLET PO ×2 (08:40→15:45)
[2023-04-10] MEDS: Cholecalciferol (Vitamin D3) 25 MCG TABLET 50 MCG PO (08:40)
--- NOTE | 2023-04-10 09:17 | HO.PM.IMPN ---
Subjective Subjective Date of Service: 04/10/23 Review of Systems Follow up Sepsis, UTI Doing better, no pain mostly chair/bedbound Physical Exam Vital Signs: Vital Signs: Last Vital Signs Temp 97.3 F 04/10/23 07:45 Pulse 70 04/10/23 07:45 Resp 18 04/10/23 07:45 BP 102/59 L 04/10/23 07:45 Pulse Ox 98 04/10/23 07:45 O2 Del Method Room Air 04/10/23 07:45 BMI result Body Mass Index 28.0 Appearing in no acute distress lung sounds are clear to auscultation heart regular rate rhythm, clear S1, S2 positive bowel sounds, abdomen is soft, nontender neuro patient is alert x3, no focal deficits Chronic coccyx wound, surrounding skin intact, no wound drainage Objective Data Active Medications Acetaminophen (Acetaminophen 325 Mg Tablet) 650 mg PO Q6H PRN PRN Reason: Pain, Mild (Pain Scale 1-3) Last Admin: 04/10/23 03:41 Dose: 650 mg Documented By: CARLTON Baclofen (Baclofen 20 Mg Tablet) 20 mg PO QID [facility] Last Admin: 04/10/23 08:40 Dose: 20 mg Documented By: ANASTASIA Calcium Carbonate (Calcium Carbonate 500 Mg Tablet) 500 mg PO DAILY [facility] Last Admin: 04/10/23 08:41 Dose: 500 mg Documented By: ANASTASIA Docusate Sodium (Docusate Sodium 100 Mg Capsule) 100 mg PO BID [facility] Last Admin: 04/10/23 08:40 Dose: 100 mg Documented By: ANASTASIA Gabapentin (Gabapentin 300 Mg Capsule) 900 mg PO TID [facility] Last Admin: 04/10/23 08:39 Dose: 900 mg Documented By: ANASTASIA Heparin Sodium (Porcine) (Heparin Sodium,Porcine 5,000 Unit/Ml Vial) 5,000 unit SUBCUT Q12H [facility] Last Admin: 04/10/23 03:18 Dose: 5,000 unit Documented By: CARLTON Piperacillin Sod/Tazobactam (Sod 3.375 gm/ Sodium Chloride) 50 mls @ 100 mls/hr IV Q6H [facility] Last Infusion: 04/10/23 05:37 Dose: 0 mls/hr Documented By: CARLTON Vancomycin HCl 1,500 mg/ (Sodium Chloride) 500 mls @ 333.333 mls/hr IV Q12H [facility] Last Admin: 04/10/23 08:41 Dose: 333.3 mls/hr Documented By: ANASTASIA Naproxen (Naproxen 500 Mg Tablet) 500 mg PO BID [facility] Last Admin: 04/10/23 08:40 Dose: 500 mg Documented By: ANASTASIA Ondansetron HCl (Ondansetron Hcl 4 Mg/2 Ml Vial) 4 mg IVPUSH Q8H PRN PRN Reason: Nausea and Vomiting Oxycodone HCl (Oxycodone Hcl Immed Release 5 Mg Tablet) 5 mg PO QID PRN PRN Reason: Pain, Moderate(Pain Scale 4-6) Last Admin: 04/10/23 08:40 Dose: 5 mg Documented By: ANASTASIA Pharmacy Consult (Consult Rx Perform Med Rec) 1 each MISCELLANE ONCE PRN PRN Reason: Consult order Pharmacy Consult (Consult Rx Vancomycin Dosing) 1 each MISCELLANE DAILY PRN PRN Reason: Consult order Sodium Chloride (0.9 % Sodium Chloride Flush 3 Ml Syringe) 3 ml IVFLUSH QSHIFT [facility] Last Admin: 04/10/23 08:41 Dose: 3 ml Documented By: ANASTASIA Vitamin D (Cholecalciferol (Vitamin D3) 25 Mcg Tablet) 50 mcg PO DAILY [facility] Last Admin: 04/10/23 08:40 Dose: 50 mcg Documented By: ANASTASIA Labs 04/10/23 06:05 04/10/23 06:05 Labs: Laboratory Results - last 24 hr 04/10/23 04/10/23 04/10/23 06:05 06:05 06:05 MCV 85.9 MCH 27.2 MCHC 31.6 RDW 15.2 Plt Count 278 MPV 8.3 L Immature Gran % (Auto) 0.3 Neut % (Auto) 87.3 H Lymph % (Auto) 5.6 L [place] % (Auto) 3.6 Eos % (Auto) 2.8 Baso % (Auto) 0.4 Lymph # (Auto) 0.7 L [place] # (Auto) 0.4 Eos # (Auto) 0.3 Baso # (Auto) 0.1 Abs Immat Gran (auto) 0.04 H Absolute Neuts (auto) 10.6 H Absolute Nucleated RBC 0.000 Nucleated RBC % (auto) 0.0 Anion Gap 11 L Estim Creat Clear Calc 141.5 Cancelled Estimated GFR > 60 Cancelled Random Glucose 103 Calcium 9.2 Microbiology Microbiology Results: Microbiology 04/09/23 06:46 Blood Culture - Preliminary Blood - Venous No growth after 24 hours. Assessment and Plan (1) Osteomyelitis: Status: Acute (2) Acute UTI: Status: Acute Plan 62 year old man admitted with fever, lethargy and nausea. He has a hx of MS? and is bed and wheelchair bound. Sepsis secondary to UTI more likely secondary to UTI rather than coccyx wound Rocephin follow urine cx Chronic osteomyelitis with unstagable coccyx wound wound bed and surrounding skin look good wound vac removed general surgery consult for assessment for debridement Dry dressing for now Hyponatremia. Resolving NA 132 likely from hypovolemia s/p IV fluids MS baseline continue baclofen, neurontin DVT prophylaxis with Heparin Full code continue hospital stayt for treatment of sepsis secondary to urinary tract infection requiring IV antibiotics and close monitoring Time Spent With Patient Time: Total time managing care of this patient today ____ minutes. Quality Stroke Does the patient have a stroke diagnosis?: No VTE Prior VTE?: No VTE Risk Level:: Medical - moderate - high VTE Device Contraindication: Treatment Not Indicated VTE Drug Contraindication: N/A - Med Ordered
[2023-04-10 11:27] VITALS: BMI 28.0
--- NOTE | 2023-04-10 11:30 | MHC.CLN ---
RE: CONSULT PT WITH INCREASED NUTRITION RISK R/T PRESSURE INJURIES DIET RX; REGULAR-APPROPRIATE PT MAY BENEFIT FROM HIGH PROTEIN SUPPLEMENTS TO PROMOTE WOUND HEALING RECOMMEND ADDING ENSURE MAX TID AND CELESTINE TO PROMOTE WOUND HEALING SUPP TO [id number], 90G PROTEIN WITH 100% ACCEPTANCE MONITOR PO INTAKE AND SUPP ACCEPTANCE CLOSELY SEE ALSO FULL CLINICAL NUTRITION ASSESSMENT
--- NOTE | 2023-04-10 18:43 | P.CONWO_ITS ---
History of Present Illness Data of Consult Service Date: 04/10/23 Requesting physician: Alejandra Fox Primary Care Provider: Ambrocio Tenoiro CNP HPI Reason for consult: established osteomyelitis sacrococcygeal ulcer [id number]: 62-year-old male with debilitating MS, nonambulatory on baclofen and Neurontin who presented via EMS for urinary tract infection and sepsis. Chronic longstanding coccygeal ulcer has been present since last September. He has had surgical resection of infected bone and has also completed IV antibiotics for this indication through another wound care center and is followed outpatient in [place], [place]. Wound VAC was removed appropriately as part of this ho spitalization. This does not appear to be the primary cause of his infection. His appetite is good. He knows to offload but requires help to do so. Denies fever and feels much better now that antibiotics on board. He plans to be discharged to with his daughter, Loida, who lives in [place]. [facility] Medical History (Updated 04/10/23 @ 18:50 by MARLIN Christianson) Multiple sclerosis Osteomyelitis Sacral decubitus ulcer Social History Household Members: None Household Members Other:: Daughter lives upstairs in seperate apartment Housing: Apartment Do you presently have visiting nurse or other home services: Yes Patient Tobacco Use Status: Never used Tobacco Use of substances other than those prescribed or required for medical reasons: No Currently Displaying Signs/Symptoms of Drug Intoxication Withdrawal: No Have you been hit, kicked, punched, or otherwise hurt by someone within the past year? If so, by whom?: No Do you feel safe in your current relationship?: No Current Relationship Is there a partner from a previous relationship who is making you feel unsafe now?: No Are you made to feel afraid or neglected: No Spiritual Healthcare Practices: none per patient Baptism Healthcare Practices: none per patient Cultural Healthcare Practices: none per patient Advance Directives: Yes Advance Directives Information Provided: Yes Advance Directives on File: No Advance Directives Date on File: 04/09/23 Do you have thoughts of harming others: None Do you have a plan to hurt others: No Plan Recently lost weight without trying: No Eating poorly because of decreased appetite: No Nutrition Risks: No Nutritional Risk Poor oral hygiene: No service: No Meds Allergies Allergy/AdvReac Type Severity Reaction Status Date / Time No Known Allergies Allergy Verified 04/09/23 10:18 Active Medications: Current Medications Acetaminophen (Acetaminophen 325 Mg Tablet) 650 mg PO Q6H PRN PRN Reason: Pain, Mild (Pain Scale 1-3) Last Admin: 04/10/23 13:16 Dose: 650 mg Baclofen (Baclofen 20 Mg Tablet) 20 mg PO QID [facility] Last Admin: 04/10/23 16:40 Dose: 20 mg Calcium Carbonate (Calcium Carbonate 500 Mg Tablet) 500 mg PO DAILY [facility] Last Admin: 04/10/23 08:41 Dose: 500 mg Docusate Sodium (Docusate Sodium 100 Mg Capsule) 100 mg PO BID [facility] Last Admin: 04/10/23 08:40 Dose: 100 mg Gabapentin (Gabapentin 300 Mg Capsule) 900 mg PO TID [facility] Last Admin: 04/10/23 15:44 Dose: 900 mg Heparin Sodium (Porcine) (Heparin Sodium,Porcine 5,000 Unit/Ml Vial) 5,000 unit SUBCUT Q12H [facility] Last Admin: 04/10/23 15:44 Dose: 5,000 unit Piperacillin Sod/Tazobactam (Sod 3.375 gm/ Sodium Chloride) 50 mls @ 100 mls/hr IV Q6H [facility] Last Infusion: 04/10/23 16:29 Dose: Infused Vancomycin HCl 1,500 mg/ (Sodium Chloride) 500 mls @ 333.333 mls/hr IV Q12H [facility] Last Infusion: 04/10/23 10:14 Dose: Infused Naproxen (Naproxen 500 Mg Tablet) 500 mg PO BID [facility] Last Admin: 04/10/23 08:40 Dose: 500 mg Ondansetron HCl (Ondansetron Hcl 4 Mg/2 Ml Vial) 4 mg IVPUSH Q8H PRN PRN Reason: Nausea and Vomiting Oxycodone HCl (Oxycodone Hcl Immed Release 5 Mg Tablet) 5 mg PO QID PRN PRN Reason: Pain, Moderate(Pain Scale 4-6) Last Admin: 04/10/23 15:45 Dose: 5 mg Pharmacy Consult (Consult Rx Perform Med Rec) 1 each MISCELLANE ONCE PRN PRN Reason: Consult order Pharmacy Consult (Consult Rx Vancomycin Dosing) 1 each MISCELLANE DAILY PRN PRN Reason: Consult order Sodium Chloride (0.9 % Sodium Chloride Flush 3 Ml Syringe) 3 ml IVFLUSH QSHIFT [facility] Last Admin: 04/10/23 15:45 Dose: 3 ml Vitamin D (Cholecalciferol (Vitamin D3) 25 Mcg Tablet) 50 mcg PO DAILY [facility] Last Admin: 04/10/23 08:40 Dose: 50 mcg Home Medications Medication Instructions Recorded Confirmed Last Taken Type baclofen 20 mg tablet 20 mg PO QID 04/09/23 04/09/23 04/08/23 20:00 History calcium carbonate 200 mg calcium 400 mg PO DAILY 04/09/23 04/09/23 04/08/23 07:00 History (500 mg) chewable tablet (Tums) cholecalciferol (vitamin D3) 50 50 mcg PO DAILY 04/09/23 04/09/23 04/08/23 07:00 History mcg (2,000 unit) capsule (Vitamin D3) docusate sodium 100 mg capsule 100 mg PO BID 04/09/23 04/09/23 04/08/23 20:00 History gabapentin 300 mg capsule 900 mg PO TID 04/09/23 04/09/23 04/08/23 20:00 History meloxicam 15 mg tablet 15 mg PO DAILY 04/09/23 04/09/23 04/08/23 20:00 History methenamine hippurate 1 gram tablet 1 g PO BID 04/09/23 04/09/23 Unknown History nystatin 100,000 unit/gram topical 1 appl topical BID PRN Rash 04/09/23 04/09/23 04/08/23 07:00 History powder (Nystop) oxycodone-acetaminophen 5 mg-325 1 tab PO QID PRN Pain 04/09/23 04/09/23 Unknown History mg tablet Physical Exam Vital Signs and Narrative: Vital Signs: Last Vital Signs Temp 97.3 F 04/10/23 07:45 Pulse 70 04/10/23 07:45 Resp 18 04/10/23 07:45 BP 102/59 L 04/10/23 07:45 Pulse Ox 98 04/10/23 07:45 O2 Del Method Room Air 04/10/23 07:45 BMI result Body Mass Index 28.0 Spasticity of all 4 extremities is observed including upper extremities, left greater than right. He is unable to roll onto his left side without assistance. Removal of the Aleve in foam reveals a gauze dressing in place with moderate yellow drainage. No periwound maceration. No warmth, redness or streaking. The wound base is smooth. No obvious osteomyelitis by examination. Relative c overage of soft tissue over the prominence of the sacrococcygeum is observed. No fluctuance. Results Labs 04/10/23 06:05 04/10/23 06:05 Labs: Laboratory Results - last 24 hr 04/10/23 04/10/23 04/10/23 06:05 06:05 06:05 MCV 85.9 MCH 27.2 MCHC 31.6 RDW 15.2 Plt Count 278 MPV 8.3 L Immature Gran % (Auto) 0.3 Neut % (Auto) 87.3 H Lymph % (Auto) 5.6 L [place] % (Auto) 3.6 Eos % (Auto) 2.8 Baso % (Auto) 0.4 Lymph # (Auto) 0.7 L [place] # (Auto) 0.4 Eos # (Auto) 0.3 Baso # (Auto) 0.1 Abs Immat Gran (auto) 0.04 H Absolute Neuts (auto) 10.6 H Absolute Nucleated RBC 0.000 Nucleated RBC % (auto) 0.0 Anion Gap 11 L Estim Creat Clear Calc 141.5 Cancelled Estimated GFR > 60 Cancelled Random Glucose 103 Calcium 9.2 Assessment and Plan (1) Sacral decubitus ulcer, stage IV: Status: Acute Plan 62-year-old male with debilitating multiple sclerosis, nonambulatory with non hospital acquired stage IV decubitus ulcer of the sacrococcygeal receiving excellent wound care elsewhere. Recommend that the wound VAC be discontinued as inpatient and resume as outpatient. Recommend topical alginate within the wound opening for this hospital stay. Allevyn foam for protection is a reasonable approach for this hospitalization. Follow-up with [facility] upon discharge. No indication for surgical debridement given stable appearance of this area. Time Spent With Patient Time: Total time managing care of this patient today ____ minutes.
[2023-04-10 19:56] VITALS: BP 100/53; PULSE 82; RESP 20; TEMP 36.4; O2SAT 97
[2023-04-10 19:57] LABS: Vancomycin Trough 12.8 mcg/mL (10.0-20.0)
[2023-04-10 23:28] VITALS: BP 103/59; PULSE 67; RESP 18; TEMP 37.1; O2SAT 97
[2023-04-11] MEDS: Heparin Sodium,Porcine 5,000 UNIT/ML VIAL 5000 UNIT SUBCUT (03:50)
[2023-04-11 06:09] LABS: Creatinine Clr Calc Pharmacy 139.4; Estimated Glomerular Filt Rate > 60
[2023-04-11 07:15] VITALS: BP 124/66; PULSE 57; RESP 20; TEMP 36.6; O2SAT 96
--- NOTE | 2023-04-11 08:22 | P.PNIM_ITS ---
Subjective Subjective Date of Service: 04/11/23 Review of Systems Follow up Sepsis, UTI Doing better, no pain mostly chair/bedbound Physical Exam Vital Signs: Vital Signs: Last Vital Signs Temp 97.8 F 04/11/23 07:15 Pulse 57 04/11/23 07:15 Resp 20 04/11/23 07:15 BP 124/66 04/11/23 07:15 Pulse Ox 96 04/11/23 07:15 O2 Del Method Room Air 04/11/23 07:15 BMI result Body Mass Index 28.0 Appearing in no acute distress lung sounds are clear to auscultation heart regular rate rhythm, clear S1, S2 positive bowel sounds, abdomen is soft, nontender neuro patient is alert x3, no focal deficits Objective Data Active Medications Acetaminophen (Acetaminophen 325 Mg Tablet) 650 mg PO Q6H PRN PRN Reason: Pain, Mild (Pain Scale 1-3) Last Admin: 04/10/23 20:39 Dose: 650 mg Documented By: CARLTON Baclofen (Baclofen 20 Mg Tablet) 20 mg PO QID [facility] Last Admin: 04/10/23 20:39 Dose: 20 mg Documented By: CARLTON Calcium Carbonate (Calcium Carbonate 500 Mg Tablet) 500 mg PO DAILY [facility] Last Admin: 04/10/23 08:41 Dose: 500 mg Documented By: ANASTASIA Docusate Sodium (Docusate Sodium 100 Mg Capsule) 100 mg PO BID [facility] Last Admin: 04/10/23 20:40 Dose: 100 mg Documented By: CARLTON Gabapentin (Gabapentin 300 Mg Capsule) 900 mg PO TID [facility] Last Admin: 04/10/23 23:01 Dose: 900 mg Documented By: CARLTON Heparin Sodium (Porcine) (Heparin Sodium,Porcine 5,000 Unit/Ml Vial) 5,000 unit SUBCUT Q12H [facility] Last Admin: 04/11/23 03:50 Dose: 5,000 unit Documented By: CARLTON Piperacillin Sod/Tazobactam (Sod 3.375 gm/ Sodium Chloride) 50 mls @ 100 mls/hr IV Q6H [facility] Last Infusion: 04/11/23 05:00 Dose: 100 mls/hr Documented By: CARLTON Vancomycin HCl 1,500 mg/ (Sodium Chloride) 500 mls @ 333.333 mls/hr IV Q12H [facility] Last Infusion: 04/10/23 23:26 Dose: 333.3 mls/hr Documented By: CARLTON Naproxen (Naproxen 500 Mg Tablet) 500 mg PO BID [facility] Last Admin: 04/10/23 20:40 Dose: 500 mg Documented By: CARLTON Ondansetron HCl (Ondansetron Hcl 4 Mg/2 Ml Vial) 4 mg IVPUSH Q8H PRN PRN Reason: Nausea and Vomiting Oxycodone HCl (Oxycodone Hcl Immed Release 5 Mg Tablet) 5 mg PO QID PRN PRN Reason: Pain, Moderate(Pain Scale 4-6) Last Admin: 04/10/23 15:45 Dose: 5 mg Documented By: ANASTASIA Pharmacy Consult (Consult Rx Perform Med Rec) 1 each MISCELLANE ONCE PRN PRN Reason: Consult order Pharmacy Consult (Consult Rx Vancomycin Dosing) 1 each MISCELLANE DAILY PRN PRN Reason: Consult order Sodium Chloride (0.9 % Sodium Chloride Flush 3 Ml Syringe) 3 ml IVFLUSH QSHIFT [facility] Last Admin: 04/11/23 00:27 Dose: 3 ml Documented By: CARLTON Vitamin D (Cholecalciferol (Vitamin D3) 25 Mcg Tablet) 50 mcg PO DAILY [facility] Last Admin: 04/10/23 08:40 Dose: 50 mcg Documented By: ANASTASIA Labs 04/10/23 06:05 04/11/23 05:30 Labs: Laboratory Results - last 24 hr 04/10/23 04/11/23 19:15 05:30 Estim Creat Clear Calc 139.4 Estimated GFR > 60 Vancomycin Trough 12.8 Microbiology Microbiology Results: Microbiology 04/10/23 14:20 Gram Stain - Final Coccyx Routine Culture - Preliminary Culture in progress. 04/09/23 Unknown Urine Culture - Final Urine Catheterized - Loco Catheter Escherichia coli 04/09/23 07:19 Blood Culture - Preliminary Blood - Venous Prelim: GPC Gram Stain only 04/09/23 06:46 Blood Culture - Preliminary Blood - Venous No growth after 24 hours. Assessment and Plan (1) Osteomyelitis: Status: Acute (2) Acute UTI: Status: Acute Plan 62 year old man admitted with fever, lethargy and nausea. He has a hx of MS? and is bed and wheelchair bound. Sepsis secondary to ecoli UTI Rocephin follow urine cx GPC bacteremia / awaiting final cx on vancomycin Chronic osteomyelitis with stage IV decubitus ulcer wound bed and surrounding skin look good Seen and evaluated by wound care team>clean coccyx wound, no need for debridement, may leave wound vac off anf replace at o/p wound care center visit topical alginate within wound opening and allevyn foam Hyponatremia. Resolving NA 132 likely from hypovolemia s/p IV fluids MS baseline continue baclofen, neurontin DVT prophylaxis with Heparin Full code attending Dr. Javier DISPO plan for dc home when medically clear continue hospital stay for treatment of sepsis secondary to urinary tract infection requiring IV antibiotics and close monitoring Time Spent With Patient Time: Total time managing care of this patient today ____ minutes. Quality Stroke Does the patient have a stroke diagnosis?: No VTE Prior VTE?: No VTE Risk Level:: Medical - moderate - high VTE Device Contraindication: Treatment Not Indicated VTE Drug Contraindication: N/A - Med Ordered
[2023-04-11] MEDS: Cholecalciferol (Vitamin D3) 25 MCG TABLET 50 MCG PO (10:42)
[2023-04-11] MEDS: NaPROXEN 500 MG TABLET PO (10:42)
[2023-04-11] MEDS: Gabapentin 300 MG CAPSULE 900 MG PO ×2 (10:42→14:24)
[2023-04-11] MEDS: oxyCODONE HCl Immed Release 5 MG TABLET PO (10:43)
[2023-04-11] MEDS: Docusate Sodium 100 MG CAPSULE PO (10:43)
[2023-04-11] MEDS: Baclofen 20 MG TABLET PO ×2 (10:43→14:25)
[2023-04-11 11:14] VITALS: BP 130/70; PULSE 67; RESP 20; TEMP 36.1; O2SAT 98
--- NOTE | 2023-04-11 13:01 | MHC.CM.PN ---
Per LOGISTICS INTERN/Alejandra, Patient is medically cleared for dc to home today. Patient is active with [facility], who has been notified of today's dc. Last IMM addressed on 04/10/2023.
--- NOTE | 2023-04-11 13:02 | P.DS_ITS ---
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 He does have a history of MS and is mostly bed/wheelchair bound.? He denied any recent travel, sick contacts, chest pain, shortness of breath, vomiting, diarrhea, recent illness.? His last hospitalization was in October of 2022 at [facility].? He has been in his usual state of health more recently.? His sodium was low at 127, white blood cell count 15.8, all other labs are within acceptable limits.? He was note d to have fever of 101.0, tachycardia, tachypnea, normal lactic acid.? UA was positive.? In the ER he received 1 L of IV fluid, Tylenol, cefepime, vancomycin, Zosyn.? He will be admitted for further management and treatment of sepsis secondary to UTI and chronic osteomyelitis. 62-year-old man treated for sepsis secondary to E coli UTI. He has a history of chronic osteomyelitis and stage IV decubitus ulcer and the infection was initially thought to be related to this but he was seen and evaluated by the wound care team who did not find any indication for debridement and there was healthy granulating tissue present. His wound VAC was removed on admission and wound care orders included topical alginate within the wound opening and Allevyn foam daily while inpatient. If VNA able, can do daily dressings or safe alternative for schedule. Wound vac to be replaced by VNA or wound care office as soon as possible. Blood cultures initially also came back Gram-positive cocci 1/2 in vancomycin was ordered to the already or Zosyn. Blood culture did come back coag-negative staph. Patient had some episodes of hyponatremia initially 127 but did improve to 132 after IV fluids. Patient continue a total 10 days of antibiotics for E coli UTI. MS. No change. Continue baclofen and Neurontin Time Spent with Patient Time attestation: Total time managing care of this patient today ____ minutes. Discharge coordination time: Greater than 30 minutes Quality: Safe Use of Opioids Does Pt have an Active Cancer Diagnosis on the Problem List?: No Quality: Stroke Does the patient have a stroke diagnosis?: No Physical Exam Vital Signs: Vital Signs: Last Vital Signs Temp 96.9 F 04/11/23 11:14 Pulse 67 04/11/23 11:14 Resp 20 04/11/23 11:14 BP 130/70 04/11/23 11:14 Pulse Ox 98 04/11/23 11:14 O2 Del Method Room Air 04/11/23 11:14 BMI result Body Mass Index 28.0 Appearing in no acute distress head is normocephalic atraumatic eyes pupils are PERRLA sclera is anicteric mouth throat mucous membranes are intact and moist neck is supple no lymphadenopathy, no JVD noted lung sounds are clear to auscultation heart regular rate rhythm, clear S1, S2 positive bowel sounds, abdomen is soft, nontender neuro patient is alert x3, no focal deficits Stage IV coccyx wound, surrounding skin intact granulating tissue to wound bed no drainage noted DS: Data Data Completed and Pending Labs on day of discharge: Laboratory Results - last 24 hr 04/10/23 04/11/23 19:15 05:30 Creatinine 0.68 Estim Creat Clear Calc 139.4 Estimated GFR > 60 Vancomycin Trough 12.8 Preliminary micro results at discharge 04/09/23 06:46 Blood Culture - Preliminary Blood - Venous No growth after 48 hours. 04/10/23 14:20 Routine Culture - Preliminary Coccyx Culture in progress. Discharge Plan Discharge Anticipated Discharge Date/Time: 04/11/23 12:57 Patient Disposition: Home Health Service Discharge Diagnosis: Sepsis E coli UTI Chronic osteomyelitis Decubitus ulcer stage IV Hyponatremia Referrals: Garett VILLASEÑOR [Outside] - 1 Week Ambrocio Tenorio CNP [Primary Care Provider] - 1 Week Discharge Medications: New cefuroxime axetil 500 mg tablet 500 mg PO BID Qty: 14 0RF Continued meloxicam 15 mg tablet 15 mg PO DAILY baclofen 20 mg tablet 20 mg PO QID oxycodone-acetaminophen 5-325 mg tablet 1 tab PO QID PRN (Reason: Pain) methenamine hippurate 1 gram tablet 1 g PO BID docusate sodium 100 mg Capsule 100 mg PO BID gabapentin 300 mg capsule 900 mg PO TID nystatin [Nystop] 100,000 unit/gram powder 1 appl topical BID PRN (Reason: Rash) cholecalciferol (vitamin D3) [Vitamin D3] 50 mcg (2,000 unit) Capsule 50 mcg PO DAILY calcium carbonate [Tums] 200 mg calcium (500 mg) Tablet,Chewable 400 mg PO DAILY Discharge Orders: Discharge Order (Routine); Ordered 04/11/23 Ordered By: Alejandra Fxo Diet: Advance to usual diet Activity on Discharge: As tolerated Stand Alone Forms: Patient Portal Discharge page Care Plan Goals: Topical alginate within wound opening and allevyn foam to coccyx wound Health Concerns: Sepsis E coli UTI Chronic osteomyelitis Decubitus ulcer stage IV Hyponatremia Plan of Treatment: Follow-up with primary care provider as needed Follow-up of Wound Care Clinic for replacement of wound VAC Take all medications as prescribed Assessment: See discharge summary Discharge Date/Time: 04/11/23 15:31
== END 2023-04-11 15:31 | disposition home health service (06) | DRG 698 ==
LOC: HO.ED 08:59 → HO.EDOVER 09:48 → HO.IMC 11:25
PROVIDERS: Admitting Provider Nurse Practitioner Acute Care; Emergency Provider Emergency Medicine; PCP Nurse Practitioner Family; Visit Provider Nurse Practitioner Acute Care
DX: T83.511A Infection and inflammatory reaction due to indwelling urethral catheter, initial encounter (principal); A41.51 Sepsis due to Escherichia coli [E. coli]; L89.154 Pressure ulcer of sacral region, stage 4; E87.1 Hypo-osmolality and hyponatremia; M86.68 Other chronic osteomyelitis, other site; G35 Multiple sclerosis; E86.1 Hypovolemia; Z74.01 Bed confinement status; Z20.822 Contact with and (suspected) exposure to COVID-19; Z79.899 Other long term (current) drug therapy
CPT/HCPCS: 36415; 71045; 74177; 80048; 80076; 80202; 81001; 81003; 82550; 82565; 83605; 83735; 84295; 84484; 85025; 85610; 87040; 87070; 87086; 87088; 87147; 87186; 87205; 87635; 93005; 99285; C1758; J0692; J1643; J2270; J2543; J3370; J3371; Q9967

== ENCOUNTER → 2023-04-09 06:42 | Outpatient (BNV) | payer MEDICARE, MEDICAID, SELFPAY | PROVIDERS: Admitting Provider Nurse Practitioner Acute Care; Emergency Provider Emergency Medicine; PCP Nurse Practitioner Family; Visit Provider Internal Medicine Cardiovascular Disease | DX: I49.9 Cardiac arrhythmia, unspecified (principal) | CPT/HCPCS: 93010 ==

== ENCOUNTER → 2023-04-09 09:42 | Outpatient (BNV) | payer MEDICARE, MEDICAID, SELFPAY | PROVIDERS: Admitting Provider Nurse Practitioner Acute Care; Emergency Provider Emergency Medicine; PCP Nurse Practitioner Family; Visit Provider Nurse Practitioner Acute Care | DX: M86.9 Osteomyelitis, unspecified (principal); N39.0 Urinary tract infection, site not specified | CPT/HCPCS: 99223; 99232; 99239 ==

== ENCOUNTER 2023-08-01 16:33 | Outpatient (REF) | payer MEDICARE, MEDICAID, SELFPAY ==
[2023-08-01 17:10] LABS: Appearance Urine Turbid; Color Urine Yellow; Glucose Urine UA Negative (Negative); Leukocyte Esterase Urine Large (3+) (Negative); Nitrite Urine Positive (Negative); PH 7.5 (5.0-9.0); Specific Gravity - Urine 1.015 (1.005-1.025); UMIC TRIGGER UA YES; Urine Blood Moderate (2+) (Negative); Urine Ketones Negative (Negative); Urine Protein 30 (1+) mg/dL (Neg-Trace)
[2023-08-01 17:20] LABS: Bacteria Urine 4+ (None Seen); Hyaline Casts Urine 0-2 /LPF (0-2); RBC Urine >20 /HPF (0-2); WBC Urine >50 /HPF (0-5)
== END 2023-08-01 16:34 | disposition home or self-care (01) ==
LOC: HO.HVNA 16:33
PROVIDERS: Visit Provider Family Medicine
DX: R31.9 Hematuria, unspecified (principal)
CPT/HCPCS: 81001; 81003; 87086; 87088; 87186

== ENCOUNTER 2023-12-01 14:12 | Outpatient (REF) | payer MEDICARE, MEDICAID, SELFPAY ==
[2023-12-01 14:24] LABS: MANUAL DIFF FLAG NO
[2023-12-01 14:29] LABS: Basophils Percent Auto 0.7 % (0-2); Eosinophils Absolute Auto 0.4 X10*3/uL (0.0-0.4); Hemoglobin 11.2 g/dl (14.0-18.0); Imm Gran Abs Auto 0.01 X10*3/uL (0.00-0.03); Imm Gran Pct Auto 0.2 % (0.0-0.4); Lymphocytes Absolute Auto 1.6 X10*3/uL (1.2-4.9); Lymphocytes Percent Auto 35.4 % (20-40); Mean Corpuscular HGB Conc 31.1 g/dl (31.0-36.0); Mean Corpuscular Hemoglobin 27.1 pg (27.0-33.0); Mean Corpuscular Volume 87.2 fL (80.0-98.0); Mean Platelet Volume 9.1 fL (9.4-12.4); Monocytes Absolute Auto 0.4 X10*3/uL (0.1-1.2); Monocytes Percent Auto 9.7 % (2-11); Neutrophils Absolute Auto 2.1 x10*3/uL (2.0-8.3); Platelet Count 328 X10*3/uL (160-400); Red Blood Count 4.13 X10*6/uL (4.60-5.80); Red Cell Distribution Width 15.6 % (11.0-16.0); White Blood Count 4.6 X10*3/uL (4.8-10.8)
[2023-12-01 15:09] LABS: Alanine Aminotransferase 11 U/L (0-40); Albumin Level 3.2 g/dL (3.5-5.0); Alkaline Phosphatase 46 U/L (39-117); Anion Gap 10 (12-20); Aspartate Amino Transferase 13 U/L (5-37); Bilirubin Total 0.3 mg/dL (0.0-1.0); Blood Urea Nitrogen 20 mg/dL (9-16); Calcium 8.7 mg/dL (8.4-10.2); Carbon Dioxide 33 mmol/L (22-29); Chloride 100 mmol/L (96-108); Estimated Glomerular Filt Rate > 60; Glucose Random 84 mg/dL (60-115); Potassium 4.1 mmol/L (3.3-5.1); Sodium 139 mmol/L (135-145); Total Protein 6.1 g/dL (6.5-8.0)
== END 2023-12-01 14:13 | disposition home or self-care (01) ==
LOC: HO.LNP 14:12
PROVIDERS: Visit Provider Nurse Practitioner
DX: M86.9 Osteomyelitis, unspecified (principal)
CPT/HCPCS: 80053; 85025

== ENCOUNTER 2023-12-08 15:23 | Outpatient (REF) | payer MEDICARE, MEDICAID, SELFPAY ==
[2023-12-08 15:34] LABS: MANUAL DIFF FLAG NO
[2023-12-08 15:44] LABS: Basophils Absolute Auto 0.1 X10*3/uL (0.0-0.2); Basophils Percent Auto 1.1 % (0-2); Eosinophils Absolute Auto 0.5 X10*3/uL (0.0-0.4); Eosinophils Percent Auto 11.4 % (0-4); Hematocrit 37.7 % (42.0-52.0); Hemoglobin 11.8 g/dl (14.0-18.0); Imm Gran Abs Auto 0.01 X10*3/uL (0.00-0.03); Imm Gran Pct Auto 0.2 % (0.0-0.4); Lymphocytes Absolute Auto 1.7 X10*3/uL (1.2-4.9); Lymphocytes Percent Auto 38.8 % (20-40); Mean Corpuscular HGB Conc 31.3 g/dl (31.0-36.0); Mean Corpuscular Hemoglobin 27.3 pg (27.0-33.0); Mean Corpuscular Volume 87.3 fL (80.0-98.0); Mean Platelet Volume 9.4 fL (9.4-12.4); Monocytes Absolute Auto 0.4 X10*3/uL (0.1-1.2); Monocytes Percent Auto 8.9 % (2-11); Neutrophils Absolute Auto 1.7 x10*3/uL (2.0-8.3); Neutrophils Percent Auto 39.6 % (45-73); Platelet Count 273 X10*3/uL (160-400); Red Blood Count 4.32 X10*6/uL (4.60-5.80); Red Cell Distribution Width 15.5 % (11.0-16.0); White Blood Count 4.4 X10*3/uL (4.8-10.8)
[2023-12-08 16:14] LABS: Alanine Aminotransferase 11 U/L (0-40); Albumin Level 3.3 g/dL (3.5-5.0); Alkaline Phosphatase 47 U/L (39-117); Anion Gap 10 (12-20); Aspartate Amino Transferase 14 U/L (5-37); Bilirubin Total 0.2 mg/dL (0.0-1.0); Blood Urea Nitrogen 19 mg/dL (9-16); Calcium 8.7 mg/dL (8.4-10.2); Carbon Dioxide 31 mmol/L (22-29); Chloride 103 mmol/L (96-108); Estimated Glomerular Filt Rate > 60; Glucose Random 104 mg/dL (60-115); Potassium 4.1 mmol/L (3.3-5.1); Sodium 140 mmol/L (135-145); Total Protein 6.1 g/dL (6.5-8.0)
== END 2023-12-08 15:24 | disposition home or self-care (01) ==
LOC: HO.LNP 15:23
PROVIDERS: Visit Provider Nurse Practitioner
DX: M86.9 Osteomyelitis, unspecified (principal)
CPT/HCPCS: 80053; 85025

== ENCOUNTER 2024-06-05 14:35 | Emergency (ER) | payer MEDICARE, MEDICAID, SELFPAY ==
--- NOTE | ~2024-06-05 | CT_ITS ---
EXAMINATION: CT FEMUR WITH CONTRAST, RIGHT CLINICAL INFORMATION: Question of osteomyelitis right hip COMPARISON: CT abdomen and pelvis 04/09/2020 history TECHNIQUE: CT scan was performed through the pelvis and right hip down to the level of the knee joint during administration of 85 mL of Omnipaque 350. This CT examination was performed using dose optimization techniques as appropriate, variously including the following: *Automated exposure control *Adjustment of mA and/or kV according to patient size (this includes techniques or standardized protocols for targeted exams where dose is matched to indication/reason for exam; i.e. extremities or head) *Use of iterative reconstruction technique DLP: 405 mGy-cm FINDINGS: Since the prior study of 04/09/2023, patient appears to have undergone resection portion of the sacrum. At the time of the prior study, a large decubitus ulcer was seen along with question of osteomyelitis involving the sacrum and coccyx. There is still some soft tissue stranding posteriorly but no fluid collection or bone destruction. Imaging of the right hip demonstrates the femoral acetabular joint to be intact. The bones of the pelvis are unremarkable. There are a number of small bone fragment seen lateral and anterior to the hip joint, similar to 03/10/2023. No definite convincing areas of bone destruction are seen. No soft tissue swelling or fluid collection is seen around the right hip posteriorly, there is an area of increased soft tissue density seen which I suspect may be due to infolding of skin (5:60) Mild degenerative changes are present in the adjacent subchondral cysts. No knee joint effusion is seen. A Loco catheter is present in the bladder which also contains air. No free pelvic fluid is seen. The visualized bowel is unremarkable. No retroperitoneal lymphadenopathy seen. CT/CT femur RT w IV con IMPRESSION: 1. No convincing evidence of bone destruction to suggest osteomyelitis. 2. Interval resection of portion of the sacrum. 3. Other incidental findings as described above. Electronically signed by: Jono Vivas MD 06/05/2024 10:57 PM EDT
[2024-06-05 15:02] VITALS: BP 142/77; PULSE 90; RESP 20; TEMP 36.9; O2SAT 98; BMI 29.7
[2024-06-05 15:41] LABS: MANUAL DIFF FLAG NO
[2024-06-05 15:45] LABS: Basophils Percent Auto 0.5 % (0-2); Eosinophils Absolute Auto 0.2 X10*3/uL (0.0-0.4); Eosinophils Percent Auto 3.3 % (0-4); Hematocrit 43.2 % (42.0-52.0); Hemoglobin 14.2 g/dl (14.0-18.0); Imm Gran Abs Auto 0.03 X10*3/uL (0.00-0.03); Imm Gran Pct Auto 0.5 % (0.0-0.4); Lymphocytes Absolute Auto 1.1 X10*3/uL (1.2-4.9); Lymphocytes Percent Auto 17.7 % (20-40); Mean Corpuscular HGB Conc 32.9 g/dl (31.0-36.0); Mean Corpuscular Hemoglobin 30.1 pg (27.0-33.0); Mean Corpuscular Volume 91.5 fL (80.0-98.0); Mean Platelet Volume 8.5 fL (9.4-12.4); Monocytes Absolute Auto 0.5 X10*3/uL (0.1-1.2); Monocytes Percent Auto 8.3 % (2-11); Neutrophils Absolute Auto 4.5 x10*3/uL (2.0-8.3); Neutrophils Percent Auto 69.7 % (45-73); Platelet Count 336 X10*3/uL (160-400); Red Blood Count 4.72 X10*6/uL (4.60-5.80); Red Cell Distribution Width 13.2 % (11.0-16.0); White Blood Count 6.4 X10*3/uL (4.8-10.8)
[2024-06-05 15:55] LABS: Alanine Aminotransferase 11 U/L (0-40); Albumin Level 4.1 g/dL (3.5-5.0); Alkaline Phosphatase 45 U/L (39-117); Aspartate Amino Transferase 13 U/L (5-37); Bilirubin Direct < 0.2 mg/dL (0.0-0.5); Bilirubin Total 0.2 mg/dL (0.0-1.0); Total Protein 7.7 g/dL (6.5-8.0)
[2024-06-05 18:17] LABS: Anion Gap 15 (12-20); Blood Urea Nitrogen 18 mg/dL (9-16); Carbon Dioxide 29 mmol/L (22-29); Chloride 102 mmol/L (96-108); Creatinine Clr Calc Pharmacy 124.8; Estimated Glomerular Filt Rate > 60; Glucose Random 97 mg/dL (60-115); Potassium 4.8 mmol/L (3.3-5.1); Sodium 141 mmol/L (135-145)
--- NOTE | 2024-06-05 18:53 | ED.SKABFB ---
HPI - Skin/Abscess/Foreign Bdy General Chief complaint: Skin/Abscess/Foreign Body Stated complaint: r thigh wound infection Time Seen by Provider: 06/05/24 16:12 Source: patient and family Mode of arrival: ambulatory Limitations: no limitations History of Present Illness ED Provider: Dr. Silvina Hickman HPI narrative: patient comes to the emergency room complaining of a right thigh wound on the posterior aspect that has been worsening for about 3 weeks. Patient has history of multiple sclerosis, he is wheelchair bound. Patient states that his [facility] nurse who changes his dressings, thinks that they wound is getting deeper and possibly infected. Patient has history of coccyx osteomyelitis, therefore they patient's PCP recommended the patient to come to the ED for further evaluation and treatment. Patient denies fever and chills Related Data Home Medications ?Medication ?Instructions ?Recorded ?Confirmed baclofen 20 mg tablet 20 mg PO QID 04/09/23 04/09/23 calcium carbonate (Tums) 400 mg PO DAILY 04/09/23 04/09/23 cholecalciferol (vitamin D3) 50 50 mcg PO DAILY 04/09/23 04/09/23 mcg (2,000 unit) capsule (Vitamin D3) docusate sodium 100 mg capsule 100 mg PO BID 04/09/23 04/09/23 gabapentin 300 mg capsule 900 mg PO TID 04/09/23 04/09/23 meloxicam 15 mg tablet 15 mg PO DAILY 04/09/23 04/09/23 methenamine hippurate 1 gram tablet 1 g PO BID 04/09/23 04/09/23 nystatin 100,000 unit/gram topical 1 appl topical BID PRN Rash 04/09/23 04/09/23 powder (Nystop) oxycodone-acetaminophen 5 mg-325 1 tab PO QID PRN Pain 04/09/23 04/09/23 mg tablet Previous Rx's ?Medication ?Instructions ?Recorded cefuroxime axetil 500 mg tablet 500 mg PO BID #14 tabs 04/11/23 cephalexin 500 mg capsule 500 mg PO BID #14 caps 06/05/24 doxycycline hyclate 100 mg capsule 100 mg PO BID #14 caps 06/05/24 Allergies Allergy/AdvReac Type Severity Reaction Status Date / Time No Known Allergies Allergy Verified 06/05/24 15:04 Review of Systems Review of Systems: Constitutional : No Weight loss, No Fever, No Chills, No Night Sweats, No Fatigue, No Malaise ENT/Mouth : No Hearing loss, No Ear Pain, No Nasal Congestion, No Sinus Pain, No Hoarseness, No sore throat, No Rhinorrhea, No Swallowing Difficulty Eyes: No Eye Pain, No Swelling, No Redness, No Foreign Body, No Discharge, No Vision Changes Cardiovascular : No Chest Pain, No SOB, No Dyspnea on Exertion, No Orthopnea, No Edema, No Palpitations Respiratory : No Cough, No Sputum, No Wheezing, No Smoke Exposure, No Dyspnea Gastrointestinal : No Nausea, No Vomiting, No Diarrhea, No Constipation, No abdominal Pain, No Hematochezia, No Melena Genitourinary : no irregular bleeding, No Dysuria, No Urinary Frequency, No Hematuria, No Urinary Incontinence, No Urgency, No Flank Pain, No Urinary Flow Changes, No Hesitancy Musculoskeletal : No joint pain, No Myalgias, No Joint Swelling Skin : complaining of a chronic ulcer in the posterior aspect of the right hip below the buttocks, getting deeper and larger Neuro : No Weakness, No Numbness, No Paresthesias, No Loss of Consciousness, No Dizziness, No Headache Psych : No Anxiety/Panic, No Depression, No SI/HI/AH/VH, No Social Issues, Heme/Lymph: No Bruising, No Bleeding,No Lymphadenopathy Endocrine : No Polyuria, No Polydipsia, No Temperature Intolerance PMFSH Past Medical History Medical History Osteomyelitis Sacral decubitus ulcer Multiple sclerosis Social History Social History Household Members: None Household Members Other:: Daughter lives upstairs in seperate apartment Housing: Apartment Do you presently have visiting nurse or other home services: Yes Patient Tobacco Use Status: Never used Tobacco Advance Directives: Yes Advance Directives Information Provided: No Advance Directives on File: No Advance Directives Date on File: 04/09/23 service: No Physical Exam Vital Signs: Vital Signs: Last Vital Signs Temp 97.8 F 06/05/24 21:39 Pulse 71 06/05/24 21:39 Resp 16 06/05/24 21:39 BP 124/70 06/05/24 21:39 Pulse Ox 96 06/05/24 21:39 O2 Del Method Room Air 06/05/24 21:39 BMI result Body Mass Index 29.7 Const: Other: Appearance: Alert. Oriented X3. No acute distress. Eyes: Pupils equal, round and reactive to light. ENT: Pharynx normal. Neck: Normal inspection. Neck supple. No lymph nodes noted. No crepitus CVS: Normal heart rate and rhythm. Pulses normal. Normal S1 and S2 Respiratory: No respiratory distress. Breath sounds normal. No Wheezing. No rales Abdomen: Soft and nontender. No rigidity. No distention. Skin: Skin warm and dry. Normal skin color. Normal skin turgor. see extremities below Extremities: No lower extremity edema. No Lacerations. No Rash patient has a 2 cm x 2 cm ulcer on the back of the right thigh right below the right buttocks. See pictures below Neuro: Oriented X 3. No motor deficit. No sensory deficit. Moving all extremities. No slurred speech. CN 2 through 12 grossly intact Psych: calm, cooperative, normal affect Medications Administered Discontinued Medications Generic Name Dose Route Start Last Admin Trade Name Freq PRN Reason Stop Dose Admin Ceftriaxone Sodium 1 gm/ 50 mls @ 100 mls/hr 06/05/24 20:37 06/05/24 21:42 Sodium Chloride IV 06/05/24 21:06 100 mls/hr ONCE ONE Administration Doxycycline Hyclate 100 mg/ 250 mls @ 166.67 mls/hr 06/05/24 20:37 06/05/24 22:20 Sodium Chloride IV 06/05/24 22:06 166.67 mls/hr ONCE ONE Administration Iohexol 85 ml 06/05/24 21:28 06/05/24 21:29 Iohexol 350 Mg/Ml 100 Ml Infus..Btl IV 06/05/24 21:29 85 ml ONCE ONE Administration Medical Decision Making Medical Decision Making MDM Narrative: my interpretation of labs: Normal white blood cell count. Chemistry at baseline. Is deep this is. We will order a CT scan. Patient was given the 1st dose of IV antibiotics, ceftriaxone and doxycycline. - Patient has no systemic symptoms. Sepsis is not suspected - CT scan does not show any osseous involvement - patient received IV medications, patient ready for discharge. They already have an appointment set up with [facility] for next week Differential Diagnosis Differential Diagnoses: The differential diagnosis associated with the presentation includes ( chronic wound ulcer, osteomyelitis, cellulitis) Admission/Observation Consideration of admission/observation: Escalation of care including admission/observation considered ( given patient's past medical history and presentation observation was considered.) Lab Data MDM Lab Attestation statement: I reviewed the patient's lab results. 06/05/24 15:36 06/05/24 15:35 Labs: Lab Results 06/05/24 06/05/24 Range/Units 15:35 15:36 WBC 6.4 (4.8-10.8) X10*3/uL RBC 4.72 (4.60-5.80) X10*6/uL Hgb 14.2 D (14.0-18.0) g/dl Hct 43.2 (42.0-52.0) % MCV 91.5 (80.0-98.0) fL MCH 30.1 (27.0-33.0) pg MCHC 32.9 (31.0-36.0) g/dl RDW 13.2 (11.0-16.0) % Plt Count 336 (160-400) X10*3/uL MPV 8.5 L (9.4-12.4) fL Immature Gran % (Auto) 0.5 H (0.0-0.4) % Neut % (Auto) 69.7 (45-73) % Lymph % (Auto) 17.7 L (20-40) % [place] % (Auto) 8.3 (2-11) % Eos % (Auto) 3.3 (0-4) % Baso % (Auto) 0.5 (0-2) % Lymph # (Auto) 1.1 L (1.2-4.9) X10*3/uL [place] # (Auto) 0.5 (0.1-1.2) X10*3/uL Eos # (Auto) 0.2 (0.0-0.4) X10*3/uL Baso # (Auto) 0.0 (0.0-0.2) X10*3/uL Abs Immat Gran (auto) 0.03 (0.00-0.03) X10*3/uL Absolute Neuts (auto) 4.5 (2.0-8.3) x10*3/uL Absolute Nucleated RBC 0.000 (0.0-0.012) X10*3/uL Nucleated RBC % (auto) 0.0 (0.0-0.2) /100WBC Sodium 141 (135-145) mmol/L Potassium 4.8 (3.3-5.1) mmol/L Chloride 102 (96-108) mmol/L Carbon Dioxide 29 (22-29) mmol/L Anion Gap 15 (12-20) BUN 18 H (9-16) mg/dL Creatinine 0.77 (0.5-1.4) mg/dL Estim Creat Clear Calc 124.8 Estimated GFR > 60 Random Glucose 97 (60-115) mg/dL Calcium 10.0 D (8.4-10.2) mg/dL Total Bilirubin 0.2 (0.0-1.0) mg/dL Direct Bilirubin < 0.2 (0.0-0.5) mg/dL AST 13 (5-37) U/L ALT 11 (0-40) U/L Alkaline Phosphatase 45 (39-117) U/L Total Protein 7.7 (6.5-8.0) g/dL Albumin 4.1 (3.5-5.0) g/dL Independent Interpretation I performed an independent interpretation of an: CT Scan Radiology Impression Discussion of test interpretation with radiology: I have reviewed the radiologist's reading. Radiologist Impression: 1. No convincing evidence of bone destruction to suggest osteomyelitis. 2. Interval resection of portion of the sacrum. 3. Other incidental findings as described above. Independent Historian Clinical information obtained from an independent historian. History obtained from or confirmed by: Spouse Critical Care Time Critical Care Time Critical Care Time: Yes Total Critical Care Time: 45 Attestation: I have personally provided critical care time. Time includes review of lab data, radiology results, discussion with consultants, and monitoring for potential decompensation. Intervention performed as documented. Discharge Plan Discharge Clinical Impression: Ulcer of skin, Cellulitis Patient Disposition: Home, Self-Care Instructions: Cellulitis (ED) Additional Instructions: Please follow-up with your primary care physician tomorrow. If you have any worsening or new symptoms, please return to the emergency room or call 911 Prescriptions: New cephalexin 500 mg capsule 500 mg PO BID Qty: 14 0RF doxycycline hyclate 100 mg capsule 100 mg PO BID Qty: 14 0RF No Action meloxicam 15 mg tablet 15 mg PO DAILY baclofen 20 mg tablet 20 mg PO QID oxycodone-acetaminophen 5-325 mg tablet 1 tab PO QID PRN (Reason: Pain) methenamine hippurate 1 gram tablet 1 g PO BID docusate sodium 100 mg Capsule 100 mg PO BID gabapentin 300 mg capsule 900 mg PO TID nystatin [Nystop] 100,000 unit/gram powder 1 appl topical BID PRN (Reason: Rash) cholecalciferol (vitamin D3) [Vitamin D3] 50 mcg (2,000 unit) Capsule 50 mcg PO DAILY calcium carbonate [Tums] 200 mg calcium (500 mg) Tablet,Chewable 400 mg PO DAILY cefuroxime axetil 500 mg tablet 500 mg PO BID Qty: 14 0RF Print Language: Trinidadian
[2024-06-05] MEDS: iohexoL 350 MG/ML 100 ML INFUS..BTL 85 ML IV (21:29)
[2024-06-05 21:39] VITALS: BP 124/70; PULSE 71; RESP 16; TEMP 36.6; O2SAT 96
[2024-06-05] MEDS: cefTRIAXone sodium 1 GM in 0.9 % Sodium Chloride 50 ML IV (21:42)
[2024-06-05] MEDS: Doxycycline Hyclate 100 MG in 0.9 % Sodium Chloride 250 ML 166.67 MG IV (22:20)
[2024-06-06 00:44] VITALS: BP 124/70; PULSE 71; RESP 16; TEMP 36.6; O2SAT 96
== END 2024-06-06 00:46 | disposition home or self-care (01) ==
PROVIDERS: Physician Assistant Medical; Emergency Provider Emergency Medicine; PCP Nurse Practitioner Family
DX: L97.119 Non-pressure chronic ulcer of right thigh with unspecified severity (principal); L03.115 Cellulitis of right lower limb; G35 Multiple sclerosis; Z99.3 Dependence on wheelchair
CPT/HCPCS: 36415; 73701; 80048; 80076; 85025; 87040; 96365; 96366; 96367; 99284; J0696; Q9967

== ENCOUNTER 2024-07-06 11:20 | Inpatient (IN) | payer MEDICARE, MEDICAID, SELFPAY ==
[2024-07-06] VITALS (13 sets, daily range): BP systolic 92–132; BP diastolic 42–76; PULSE 72–86; RESP 14–18; TEMP 36.8–38.5; O2SAT 94–98; BMI 29.6
--- NOTE | ~2024-07-06 | CT_ITS ---
EXAMINATION: CT FEMUR WITH CONTRAST, RIGHT CLINICAL INFORMATION: Deep thigh wound, evaluate for osteomyelitis COMPARISON: CT 06/05/2024 TECHNIQUE: CT of the right thigh/femur is performed following intravenous administration of 85 mL Omnipaque [address] examination was performed using dose optimization techniques as appropriate, variously including the following: *Automated exposure control *Adjustment of mA and/or kV according to patient size (this includes techniques or standardized protocols for targeted exams where dose is matched to indication/reason for exam; i.e. extremities or head) *Use of iterative reconstruction technique DLP: 407 mGy-cm FINDINGS: The decubitus ulcer at the inferior aspect of the right buttock has significantly increased in size, with foci of air approximating the inferior aspect of the ischial tuberosity where there are subtle areas of cortical erosion and irregularity compatible with osteomyelitis. There is enhancing soft tissue thickening surrounding the wound which overall measures approximately 6.2 x 3.0 cm and a depth of 3.2 cm. Chronic erosion/destruction of the distal sacrum and coccyx without evidence to suggest active osteomyelitis in this location. 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 CT/CT femur RT w IV con IMPRESSION: 1. Significant increase in size of the decubitus ulcer at the inferior aspect of the right buttock with findings compatible with active osteomyelitis of the ischial tuberosity. There is chronic erosion/destruction of the distal sacrum and coccyx without evidence to suggest active osteomyelitis in this location. 2. 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 Electronically signed by: Juan Correa MD 07/06/2024 02:01 PM EDT
--- NOTE | 2024-07-06 11:41 | ED.GENADULT ---
HPI - General Adult General Chief complaint: Skin/Abscess/Foreign Body Stated complaint: THIGH WOUND FROM BED,H/O MS PER EMS Time Seen by Provider: 07/06/24 11:33 Source: patient Mode of arrival: EMS Limitations: no limitations History of Present Illness ED Provider: rut KOEHLER narrative: Patient's history of multiple sclerosis bed-bound with history of decubitus ulcers in the past comes here for 3 months of ulcer on the right trochanteric area been treated by wound clinic at [place] get dressing once a week was seen here on 06/05/2024 at that time patient had very small superficial wound now it is deep with foul-smelling patient is on Cipro for last 3 weeks patient had been having low-grade fever for last few days Related Data Home Medications ?Medication ?Instructions ?Recorded ?Confirmed baclofen 20 mg tablet 20 mg PO QID 04/09/23 07/06/24 calcium carbonate (Tums) 400 mg PO DAILY 04/09/23 07/06/24 cholecalciferol (vitamin D3) 50 50 mcg PO DAILY 04/09/23 07/06/24 mcg (2,000 unit) capsule (Vitamin D3) docusate sodium 100 mg capsule 100 mg PO BID 04/09/23 07/06/24 gabapentin 300 mg capsule 900 mg PO TID 04/09/23 07/06/24 meloxicam 15 mg tablet 15 mg PO DAILY 04/09/23 07/06/24 methenamine hippurate 1 gram tablet 1 g PO BID 04/09/23 07/06/24 nystatin 100,000 unit/gram topical 1 appl topical BID PRN Rash 04/09/23 07/06/24 powder (Nystop) oxycodone-acetaminophen 5 mg-325 1 tab PO QID PRN Pain 04/09/23 07/06/24 mg tablet Allergies Allergy/AdvReac Type Severity Reaction Status Date / Time No Known Allergies Allergy Verified 07/06/24 11:31 Review of Systems Review of Systems: Yes all other systems are reviewed and are negative [facility] Past Medical History Medical History Osteomyelitis Sacral decubitus ulcer Multiple sclerosis Social History Social History Household Members: None Household Members Other:: Daughter lives upstairs in seperate apartment Housing: Apartment Do you presently have visiting nurse or other home services: Yes Patient Tobacco Use Status: Never used Tobacco Advance Directives Date on File: 04/09/23 service: No Physical Exam ED Vital Signs: Vital Signs - 24 hr 07/06/24 11:24 07/06/24 12:46 Temperature 100.7 F H 101.3 F H Pulse Rate 86 Respiratory Rate 18 Blood Pressure 108/60 Pulse Oximetry 96 Oxygen Delivery Method Room Air BMI result Body Mass Index 29.6 Appearance: Alert. Oriented X3. No acute distress. Eyes: PERRLA, No Nystagmus ENT: Pharynx normal. Oral Mucosa moist Neck: Normal inspection. Neck supple. CVS: Normal heart rate and rhythm. Pulses normal. Respiratory: No respiratory distress. Equal air entry bilateral, no wheezing/rales/rhonchi Abdomen: Soft and nontender. Bowel sounds are present, no mass palpable, no CVA tenderness Skin: Skin warm and dry. Deep wound right lateral aspect of upper thigh Extremities: No lower extremity edema. No calf tenderness Neuro: Oriented X 3. Paraplegic with minimal movements of the lower extremity and left upper extremity Medications Administered Generic Name Dose Route Start Last Admin Trade Name Freq PRN Reason Stop Dose Admin Baclofen 20 mg 07/06/24 17:00 07/06/24 21:13 Baclofen 20 Mg Tablet PO 20 mg QID RAVI Administration Docusate Sodium 100 mg 07/06/24 21:00 07/06/24 21:13 Docusate Sodium 100 Mg Capsule PO 100 mg BID RAVI Administration Enoxaparin Sodium 40 mg 07/06/24 16:00 07/06/24 15:13 Enoxaparin Sodium 40 Mg/0.4 Ml Syringe SUBCUT 40 mg Q24H RAVI Administration Gabapentin 900 mg 07/06/24 15:00 07/06/24 21:13 Gabapentin 300 Mg Capsule PO 900 mg TID RAVI Administration Piperacillin Sod/Tazobactam 50 mls @ 100 mls/hr 07/06/24 18:00 07/06/24 18:29 Sod 3.375 gm/ Sodium Chloride IV Infused Q6H RAVI Infusion Methenamine Hippurate 1 gm 07/06/24 21:00 07/06/24 21:13 Methenamine Hippurate 1 Gm Tablet PO 1 gm BID RAVI Administration Oxycodone HCl 5 mg 07/06/24 14:46 07/06/24 18:11 Oxycodone Hcl Immed Release 5 Mg Tablet PO 5 mg QID PRN Administration Pain, Moderate(Pain Scale 4-6) Sodium Chloride 3 ml 07/06/24 16:00 07/06/24 15:16 0.9 % Sodium Chloride Flush 3 Ml Syringe IVFLUSH 3 ml QSHIFT RAVI Administration Discontinued Medications Generic Name Dose Route Start Last Admin Trade Name Frerodrigue PRN Reason Stop Dose Admin Sodium Chloride 1,000 mls @ 999 mls/hr 07/06/24 11:38 07/06/24 13:13 Ns IV 07/06/24 12:38 Infused .Q1H1M ONE Infusion Vancomycin HCl 2,000 mg in 500 mls @ 250 mls/hr 07/06/24 11:38 07/06/24 14:52 Vancomycin/Ns IV 07/06/24 13:37 Infused ONCE ONE Infusion Piperacillin Sod/Tazobactam 50 mls @ 100 mls/hr 07/06/24 11:38 07/06/24 12:39 Sod 3.375 gm/ Sodium Chloride IV 07/06/24 12:07 Infused ONCE ONE Infusion Lactated Ringer's 1,000 mls @ 999 mls/hr 07/06/24 15:15 07/06/24 16:14 Lr IV 07/06/24 16:15 Infused .Q1H1M RAVI Infusion Influenza Virus Vaccine 0.5 ml 07/06/24 18:48 07/06/24 21:13 Flu Vacc [id number](6mos Up)/Pf 0.5 Ml Syringe IM 07/06/24 18:49 0.5 ml .ONCE ONE Administration Iohexol 100 ml 07/06/24 13:03 07/06/24 13:03 Iohexol 350 Mg/Ml 100 Ml Infus..Btl IV 07/06/24 13:04 85 ml ONCE ONE Administration Medical Decision Making Medical Decision Making [facility] Narrative: Patient clinically with osteomyelitis of right ISCHEAL TUBOROSITY with deep wound with foul-smelling will start patient vancomycin and Zosyn Case discussed with hospitalist admit to the hospitalist service Consult Healthcare Provider Management of the patient was discussed with: Hospitalist Lab Data [facility] Lab Attestation statement: I reviewed the patient's lab results. 07/06/24 12:07 07/06/24 12:07 Labs: Lab Results 07/06/24 07/06/24 Range/Units 12:07 12:23 WBC 11.0 H (4.8-10.8) X10*3/uL RBC 3.75 L D (4.60-5.80) X10*6/uL Hgb 10.9 L D (14.0-18.0) g/dl Hct 33.3 L D (42.0-52.0) % MCV 88.8 (80.0-98.0) fL MCH 29.1 (27.0-33.0) pg MCHC 32.7 (31.0-36.0) g/dl RDW 12.6 (11.0-16.0) % Plt Count 407 H (160-400) X10*3/uL MPV 8.1 L (9.4-12.4) fL Immature Gran % (Auto) 0.5 H (0.0-0.4) % Neut % (Auto) 79.2 H (45-73) % Lymph % (Auto) 11.3 L (20-40) % [place] % (Auto) 7.9 (2-11) % Eos % (Auto) 0.8 (0-4) % Baso % (Auto) 0.3 (0-2) % Lymph # (Auto) 1.3 (1.2-4.9) X10*3/uL [place] # (Auto) 0.9 (0.1-1.2) X10*3/uL Eos # (Auto) 0.1 (0.0-0.4) X10*3/uL Baso # (Auto) 0.0 (0.0-0.2) X10*3/uL Abs Immat Gran (auto) 0.06 H (0.00-0.03) X10*3/uL Absolute Neuts (auto) 8.7 H (2.0-8.3) x10*3/uL Absolute Nucleated RBC 0.000 (0.0-0.012) X10*3/uL Nucleated RBC % (auto) 0.0 (0.0-0.2) /100WBC ESR 97 H (0-15) MM/HR PT 13.8 H (10.9-12.4) SEC INR 1.2 H (0.9-1.1) Sodium 131 L (135-145) mmol/L Potassium 4.2 (3.3-5.1) mmol/L Chloride 96 (96-108) mmol/L Carbon Dioxide 29 (22-29) mmol/L Anion Gap 10 L (12-20) BUN 14 (9-16) mg/dL Creatinine 0.80 (0.5-1.4) mg/dL Estim Creat Clear Calc 120.0 Estimated GFR > 60 Random Glucose 89 (60-115) mg/dL Lactic Acid 1.1 (0.5-2.0) mmol/L Calcium 8.7 D (8.4-10.2) mg/dL Total Bilirubin 0.3 (0.0-1.0) mg/dL AST 14 (5-37) U/L ALT 16 (0-40) U/L Alkaline Phosphatase 31 L (39-117) U/L C-Reactive Protein 28.71 H (< or = 0.50) mg/dL Total Protein 7.2 (6.5-8.0) g/dL Albumin 3.3 L (3.5-5.0) g/dL Urine Color Yellow Urine Appearance Clear Urine pH 7.0 (5.0-9.0) Ur Specific M[place]racken 1.020 (1.005-1.025) Urine Protein Negative (Neg-Trace) mg/dL Urine Glucose (UA) Negative (Negative) mg/dL Urine Ketones Negative (Negative) mg/dL Urine Blood Small (1+) H (Negative) Urine Nitrite Negative (Negative) Ur Leukocyte Esterase Negative (Negative) Urine RBC 3-5 H (0-2) /HPF Urine WBC 0-5 (0-5) /HPF Ur Squamous Epith Cells 0-2 (0-2) /HPF Urine Bacteria None Seen (None Seen) Hyaline Casts 0-2 (0-2) /LPF COVID-19 (ZULEIMA) Negative (Negative) COVID-19 Clin Com See Note Independent Interpretation I performed an independent interpretation of an: CT Scan Radiology Impression Discussion of test interpretation with radiology: I have reviewed the radiologist's reading. Radiologist Impression: [address] [address] [address] Scan Report Signed Patient: Jono Davey Sr MR#: [id number] : 1960 Acct:[id number] Age/Sex: 63 / M ADM Date: 07/06/24 Loc: HO.ED Attending Dr: Ordering Physician: Hardik Funes MD Date of Service: 07/06/24 Procedure(s): CT femur RT w IV con Accession Number(s): [id number] cc: Physician,Unknown ; Hardik Funes MD~ EXAMINATION: CT FEMUR WITH CONTRAST, RIGHT CLINICAL INFORMATION: Deep thigh wound, evaluate for osteomyelitis COMPARISON: CT 06/05/2024 TECHNIQUE: CT of the right thigh/femur is performed following intravenous administration of 85 mL Omnipaque [address] examination was performed using dose optimization techniques as appropriate, variously including the following: *Automated exposure control *Adjustment of mA and/or kV according to patient size (this includes techniques or standardized protocols for targeted exams where dose is matched to indication/reason for exam; i.e. extremities or head) *Use of iterative reconstruction technique DLP: 407 mGy-cm FINDINGS: The decubitus ulcer at the inferior aspect of the right buttock has significantly increased in size, with foci of air approximating the inferior aspect of the ischial tuberosity where there are subtle areas of cortical erosion and irregularity compatible with osteomyelitis. There is enhancing soft tissue thickening surrounding the wound which overall measures approximately 6.2 x 3.0 cm and a depth of 3.2 cm. Chronic erosion/destruction of the distal sacrum and coccyx without evidence to suggest active osteomyelitis in this location. 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 CT/CT femur RT w IV con IMPRESSION: 1. Significant increase in size of the decubitus ulcer at the inferior aspect of the right buttock with findings compatible with active osteomyelitis of the ischial tuberosity. There is chronic erosion/destruction of the distal sacrum and coccyx without evidence to suggest active osteomyelitis in this location. 2. 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 Electronically signed by: Juan Correa MD 07/06/2024 02:01 PM EDT RP Discharge Plan Discharge Clinical Impression: Osteomyelitis, Decubitus ulcer Patient Disposition: Admitted As Inpatient Interventions: Admission Worksheet (ED) Last Done: 07/06/24 17:32 Discharge Date/Time: 07/06/24 18:26
--- NOTE | 2024-07-06 11:53 | P.HPHOSP_ITS ---
History of Present Illness Date of Service: 07/06/24 Attending physician on admission: Peter Orellana Chief Complaint: Worsening decubitus ulcer, fevers Pt is a 63-year-old male with a PMH significant for?MS with paraplegia, chronically bed/wheelchair-bound, and hx of coccyx decubitus ulcer w/osteomyelitis who presents to the ED for evaluation of worsening right buttock decubitus ulcer. Sore first began developing 2+ months ago around beginning of May. Came to the ED on 06/05 to evalute for infection where CT of femur was without convincing evidence of bone destruction to suggest osteomyelitis. Was discharged from ED on cephalexin and doxy x7 days. Pt has been to wound care in [place] weekly on Mondays. Decubitus ulcer has continued to worsen with foul-smelling discharge, pain, and redness. Was recently describe a 15 day course of ciprofloxacin set to end today. Has had fever as high at 101 measured at home last night. Also complains of right arm weakness/near paralysis he says often occurs when he has an infection. Denies nausea, vomiting, abdominal pain. No chest pain/pressure, palpitations. Denies shortness of breath or difficulty breathing. Of note, pt with hx of coxxyx decubitus ulcer with osteomyelitis requiring surgical intervention and repair, now well-healed. In the ED pt was febrile up to 101.3 with soft BP as low as 92/42. Labs significant for leukocytosis of 11.0, stable normocytic anemia of 10.9/33.3, ESR 97, CRP 28.71, and sodium of 131. Renal and hepatic function WNL. Lactic acid WNL at 1.1. CT of right femur showed significant increase in decubitus ulcer at inferior aspect of right buttock with findings compatible with active osteomyelitis of ischial tuberosity. Pt was treated with vancomycin and Zosyn. Pt will be admitted to the hospital for treatment and further evaluation of acute right ischial tuberosity osteomyelitis. Review of Systems 2 Review of Systems: Worsening right buttock ulcer with pain, foul-smelling discharge Fever Right upper extremity weakness/paralysis Chronic paraplegia No other acute complaints PMFSH Medical History Osteomyelitis Sacral decubitus ulcer Multiple sclerosis Social History Household Members: None Household Members Other:: Daughter lives upstairs in seperate apartment Housing: Apartment Do you presently have visiting nurse or other home services: Yes Patient Tobacco Use Status: Never used Tobacco Smoked in Last 30 Days: No Use of substances other than those prescribed or required for medical reasons: No Advance Directives: Yes Advance Directives on File: Yes Advance Directives Date on File: 04/09/23 service: No Meds Allergies Allergy/AdvReac Type Severity Reaction Status Date / Time No Known Allergies Allergy Verified 07/06/24 11:31 Active Medications: Current Medications Sodium Chloride (Ns) 1,000 mls @ 999 mls/hr IV .Q1H1M ONE Stop: 07/06/24 12:38 Vancomycin HCl (Vancomycin/Ns) 2,000 mg in 500 mls @ 250 mls/hr IV ONCE ONE Stop: 07/06/24 13:37 Piperacillin Sod/Tazobactam (Sod 3.375 gm/ Sodium Chloride) 50 mls @ 100 mls/hr IV ONCE ONE Stop: 07/06/24 12:07 Home Medications ?Medication ?Instructions ?Recorded ?Confirmed ?Last Taken ?Type baclofen 20 mg tablet 20 mg PO QID 04/09/23 07/06/24 07/06/24 09:00 History calcium carbonate (Tums) 400 mg PO DAILY 04/09/23 07/06/24 07/06/24 09:00 History cholecalciferol (vitamin D3) 50 50 mcg PO DAILY 04/09/23 07/06/24 07/06/24 09:00 History mcg (2,000 unit) capsule (Vitamin D3) docusate sodium 100 mg capsule 100 mg PO BID 04/09/23 07/06/24 07/06/24 09:00 History gabapentin 300 mg capsule 900 mg PO TID 04/09/23 07/06/24 07/06/24 09:00 History meloxicam 15 mg tablet 15 mg PO DAILY 04/09/23 07/06/24 07/06/24 09:00 History methenamine hippurate 1 gram tablet 1 g PO BID 04/09/23 07/06/24 07/06/24 09:00 History nystatin 100,000 unit/gram topical 1 appl topical BID PRN Rash 07/06/2407/06/24 04/08/23 07:00 History powder (Nystop) oxycodone-acetaminophen 5 mg-325 1 tab PO QID PRN Pain 04/09/23 07/06/24 Unknown History mg tablet Physical Exam 2 Vital Signs and Narrative: Vital Signs: Last Vital Signs Temp 100.7 F H 07/06/24 11:24 Pulse 86 07/06/24 11:24 Resp 18 07/06/24 11:24 BP 108/60 07/06/24 11:24 Pulse Ox 96 07/06/24 11:24 O2 Del Method Room Air 07/06/24 11:24 BMI result Body Mass Index 29.6 General: AOx3, no acute distress Resp: CTA bilaterally CVS: S1, S2, RRR GI: +BS, NT, no distention Skin: 3 cm x 3 cm right buttock decubitus ulcer with foul-smelling discharge and necrotic tissue, 7.3 cm deep. As pictured below. Neuro: Paraplegia, severe left arm weakness/paralysis Extremities: No edema Psych: Appropriate affect Results Labs 07/06/24 12:07 07/06/24 12:07 Assessment and Plan (1) Osteomyelitis: Status: Acute (2) Decubitus ulcer: Status: Acute Plan Pt is a 63-year-old male with a PMH significant for?MS with paraplegia, chronically bed/wheelchair-bound, and hx of coccyx decubitus ulcer w/osteomyelitis who presents to the ED for evaluation of worsening right buttock decubitus ulcer. Pt will be admitted to the hospital for treatment and further evaluation of acute right ischial tuberosity osteomyelitis. Acute right ischial tuberosity osteomyelitis Patient with worsening decubitus ulcer x2+ months, femur CT showing likely acute osteomyelitis, ESR 97, CRP 28.71 No sepsis: fever, but no tachycardia, tachypnea, or leukocytosis; lactic acid WNL at 1.1 Patient given IVF and started on broad-spectrum antibiotics in the ED Will treat with vancomycin and Zosyn, started 07/06/2024 General surgery consult for possible debridement ID consult Cultures Hypotension BP as low as 92/42 In the setting of above Received 1L IVF in the ED Will give additional 1 L bolus Follow up BP Hyponatremia Patient's sodium 131 at time of presentation Likely secondary to hypovolemia Patient received IVF in the ED and will get additional 1L bolus Follow BMP Stage decubitus ulcer Pt paraplegic secondary MS Air loss mattress Patient positioning q2hr MS Continue baclofen, gabapentin Recurrent UTIs Continue methenamine Check UA Full Code Attending:?Dr. Aden DVT Prophylaxis: Lovenox Pt will require a hospitalization of at least two nights for treatment of? with . Quality Stroke Does the patient have a stroke diagnosis?: No VTE Prior VTE?: No VTE Risk Level:: Medical - moderate - high VTE Device Contraindication: Treatment Not Indicated VTE Drug Contraindication: N/A - Med Ordered
[2024-07-06] MEDS: Piperacillin Sodium/Tazobactam 3.375 GM in 0.9 % Sodium Chloride 50 ML IV ×2 (12:09→18:16)
[2024-07-06] MEDS: 0.9 % Sodium Chloride 1,000 ML 999 ML IV (12:12)
[2024-07-06 12:13] LABS: MANUAL DIFF FLAG NO
[2024-07-06 12:26] LABS: COVID-19 Test Negative (Negative); IDNOW Serial# 58CA691E
[2024-07-06] MEDS: vancomycin/NS 2,000 MG/500 ML PLAST..BAG 250 MG IV (12:28)
[2024-07-06 12:29] LABS: Lactic Acid 1.1 mmol/L (0.5-2.0)
[2024-07-06 12:30] LABS: Appearance Urine Clear; Color Urine Yellow; Glucose Urine UA Negative (Negative); Leukocyte Esterase Urine Negative (Negative); Nitrite Urine Negative (Negative); UMIC TRIGGER UACC YES; Urine Blood Small (1+) (Negative); Urine Ketones Negative (Negative); Urine Protein Negative (Neg-Trace)
[2024-07-06 12:31] LABS: INTERNATIONAL NORM RATIO 1.2 (0.9-1.1); Prothrombin Time 13.8 SEC (10.9-12.4)
[2024-07-06 12:34] LABS: Basophils Percent Auto 0.3 % (0-2); Eosinophils Absolute Auto 0.1 X10*3/uL (0.0-0.4); Eosinophils Percent Auto 0.8 % (0-4); Hematocrit 33.3 % (42.0-52.0); Imm Gran Abs Auto 0.06 X10*3/uL (0.00-0.03); Imm Gran Pct Auto 0.5 % (0.0-0.4); Lymphocytes Absolute Auto 1.3 X10*3/uL (1.2-4.9); Lymphocytes Percent Auto 11.3 % (20-40); Mean Corpuscular HGB Conc 32.7 g/dl (31.0-36.0); Mean Corpuscular Hemoglobin 29.1 pg (27.0-33.0); Mean Corpuscular Volume 88.8 fL (80.0-98.0); Mean Platelet Volume 8.1 fL (9.4-12.4); Monocytes Absolute Auto 0.9 X10*3/uL (0.1-1.2); Monocytes Percent Auto 7.9 % (2-11); Neutrophils Absolute Auto 8.7 x10*3/uL (2.0-8.3); Neutrophils Percent Auto 79.2 % (45-73); Platelet Count 407 X10*3/uL (160-400); Red Blood Count 3.75 X10*6/uL (4.60-5.80); Red Cell Distribution Width 12.6 % (11.0-16.0)
[2024-07-06 12:35] LABS: Alanine Aminotransferase 16 U/L (0-40); Albumin Level 3.3 g/dL (3.5-5.0); Alkaline Phosphatase 31 U/L (39-117); Anion Gap 10 (12-20); Aspartate Amino Transferase 14 U/L (5-37); Bilirubin Total 0.3 mg/dL (0.0-1.0); Blood Urea Nitrogen 14 mg/dL (9-16); C Reactive Protein 28.71 mg/dL (< or = 0.50); Calcium 8.7 mg/dL (8.4-10.2); Carbon Dioxide 29 mmol/L (22-29); Chloride 96 mmol/L (96-108); Estimated Glomerular Filt Rate > 60; Glucose Random 89 mg/dL (60-115); Potassium 4.2 mmol/L (3.3-5.1); Sodium 131 mmol/L (135-145); Total Protein 7.2 g/dL (6.5-8.0)
[2024-07-06 12:38] LABS: Bacteria Urine None Seen (None Seen); Hyaline Casts Urine 0-2 /LPF (0-2); Squamous Epithelial Cell Urine 0-2 /HPF (0-2); WBC Urine 0-5 /HPF (0-5)
[2024-07-06 12:53] LABS: Hemoglobin 10.9 g/dl (14.0-18.0)
[2024-07-06] MEDS: iohexoL 350 MG/ML 100 ML INFUS..BTL IV (13:03)
[2024-07-06 13:36] LABS: Erythrocyte Sedimentation Rate 97 MM/HR (0-15)
--- NOTE | 2024-07-06 13:45 | PC.NURSE ---
pt presents with open area to right buttock- pt sts that he gets wound care in [place], [place] every monday. sts that he receives home care from [facility]. Per pt, he was put on 14 days of cipro, with his last dose being today. Pt sts area has active drainage, with foul odor. Dressing was removed and area was cleansed with NS and Peroxide, per MD Funes. area was then covered with fluff gauze abd pad and tape. Pt noted to have fever of 101.3 rectally. labs and cultures obtained. IV Zosyn 3.375, 1L NS, and vanco 2gm administered per NOV. pt evaluated by MARLIN Cordero at bedside- awaiting inpatient bed assignment.
--- NOTE | 2024-07-06 14:34 | PHA.MEDREC ---
Addendum entered by Filippo Kohli 07/06/24 15:12: reviewed Original Note: Pharmacy Consult ? Medication Reconciliation Pharmacy has completed the medication reconciliation.
--- NOTE | 2024-07-06 14:53 | PC.NURSE ---
delay in Vanco completion d/t pump losing power- 15min of infusion time remaining
[2024-07-06] MEDS: Enoxaparin Sodium 40 MG/0.4 ML SYRINGE SUBCUT (15:13)
[2024-07-06] MEDS: Gabapentin 300 MG CAPSULE 900 MG PO ×2 (15:13→21:13)
[2024-07-06] MEDS: Lactated Ringers 1,000 ML 999 ML IV (15:15)
[2024-07-06] MEDS: 0.9 % Sodium Chloride Flush 3 ML SYRINGE IVFLUSH (15:16)
--- NOTE | 2024-07-06 15:41 | PC.NURSE ---
MARLIN Cordero notified of BP 92/42- 1l LR bolus ordered. repeat pressure 100/54 prior to hanging bolus PA aware
--- NOTE | 2024-07-06 16:17 | PC.NURSE ---
B/P 112/61 s/p admin of LR 1L - PA Gil notified
--- NOTE | 2024-07-06 17:15 | P.CONGS_ITS ---
History of Present Illness Consult details Consult date: 07/06/24 Narrative: Patient was an unfortunate 63-year-old male, paraplegic with a collection of comorbidities and intercurrent medical problems. He has had apparently a 2 month progressively worsening right ischial tuberosity decubitus which has progressed. Patient states he had a similar such ulcer on the contralateral left side that eventually required plastic surgery flap coverage. Chart was reviewed and patient evaluated PMFSH Past Medical History Medical History Osteomyelitis Sacral decubitus ulcer Multiple sclerosis Social History Social History Household Members: None Household Members Other:: Daughter lives upstairs in seperate apartment Housing: Apartment Do you presently have visiting nurse or other home services: Yes Patient Tobacco Use Status: Never used Tobacco Smoked in Last 30 Days: No Use of substances other than those prescribed or required for medical reasons: No Advance Directives: Yes Advance Directives on File: Yes Advance Directives Date on File: 04/09/23 service: No Meds Allergies Allergy/AdvReac Type Severity Reaction Status Date / Time No Known Allergies Allergy Verified 07/06/24 11:31 Active Medications: Current Medications Acetaminophen (Acetaminophen 325 Mg Tablet) 650 mg PO Q6H PRN PRN Reason: Pain, Mild (Pain Scale 1-3), fever or headache Baclofen (Baclofen 20 Mg Tablet) 20 mg PO QID [facility] Benzonatate (Benzonatate 100 Mg Capsule) 100 mg PO TID PRN PRN Reason: Cough Calcium Carbonate (Calcium Carbonate 750 Mg Tab.Chew) 750 mg PO Q4H PRN PRN Reason: Heartburn Docusate Sodium (Docusate Sodium 100 Mg Capsule) 100 mg PO BID [facility] Enoxaparin Sodium (Enoxaparin Sodium 40 Mg/0.4 Ml Syringe) 40 mg SUBCUT Q24H [facility] Last Admin: 07/06/24 15:13 Dose: 40 mg Gabapentin (Gabapentin 300 Mg Capsule) 900 mg PO TID [facility] Last Admin: 07/06/24 15:13 Dose: 900 mg Piperacillin Sod/Tazobactam (Sod 3.375 gm/ Sodium Chloride) 50 mls @ 100 mls/hr IV Q6H [facility] Vancomycin HCl 1,500 mg/ (Sodium Chloride) 500 mls @ 333.333 mls/hr IV Q12H [facility] Magnesium Hydroxide (Milk Of Magnesia 30 Ml Oral.Susp) 30 ml PO DAILY PRN PRN Reason: Constipation Melatonin (Melatonin 3 Mg Tablet) 6 mg PO BEDTIME PRN PRN Reason: Insomnia Methenamine Hippurate (Methenamine Hippurate 1 Gm Tablet) 1 gm PO BID [facility] Nystatin (Nystatin Powder 15 Gm Bottle) 1 appl TOPICAL BID PRN; Protocol PRN Reason: Rash Ondansetron HCl (Ondansetron Hcl 4 Mg/2 Ml Vial) 4 mg IVPUSH Q8H PRN PRN Reason: Nausea and Vomiting Oxycodone HCl (Oxycodone Hcl Immed Release 5 Mg Tablet) 5 mg PO QID PRN PRN Reason: Pain, Moderate(Pain Scale 4-6) Pharmacy Consult (Consult Rx Vancomycin Dosing) 1 each MISCELLANE DAILY PRN PRN Reason: Consult order Sodium Chloride (0.9 % Sodium Chloride Flush 3 Ml Syringe) 3 ml IVFLUSH QSHIFT [facility] Last Admin: 07/06/24 15:16 Dose: 3 ml Vitamin D (Cholecalciferol (Vitamin D3) 25 Mcg Tablet) 50 mcg PO DAILY [facility] Home Medications ?Medication ?Instructions ?Recorded ?Confirmed ?Last Taken ?Type baclofen 20 mg tablet 20 mg PO QID 04/09/23 07/06/24 07/06/24 09:00 History calcium carbonate (Tums) 400 mg PO DAILY 04/09/23 07/06/24 07/06/24 09:00 History cholecalciferol (vitamin D3) 50 50 mcg PO DAILY 04/09/23 07/06/24 07/06/24 09:00 History mcg (2,000 unit) capsule (Vitamin D3) docusate sodium 100 mg capsule 100 mg PO BID 04/09/23 07/06/24 07/06/24 09:00 History gabapentin 300 mg capsule 900 mg PO TID 04/09/23 07/06/24 07/06/24 09:00 History meloxicam 15 mg tablet 15 mg PO DAILY 04/09/23 07/06/24 07/06/24 09:00 History methenamine hippurate 1 gram tablet 1 g PO BID 04/09/23 07/06/24 07/06/24 09:00 History nystatin 100,000 unit/gram topical 1 appl topical BID PRN Rash 04/09/23 07/06/24 04/08/23 07:00 History powder (Nystop) oxycodone-acetaminophen 5 mg-325 1 tab PO QID PRN Pain 04/09/23 07/06/24 Unknown History mg tablet Physical Exam 2 Vital Signs: Vital Signs: Last Vital Signs Temp 101.3 F H 07/06/24 12:46 Pulse 77 07/06/24 16:12 Resp 16 07/06/24 16:12 BP 112/61 07/06/24 16:12 Pulse Ox 97 07/06/24 16:12 O2 Del Method Room Air 07/06/24 16:12 BMI result Body Mass Index 29.6 Const: Other: Limited mobility secondary to paraplegia. Patient was cooperative and conversant Back/Spine/Pelvis: Other: A right ischial tuberosity ulcer/wound with a roughly 3 cm opening but extended very deeply and undermining several cm. Some superficial necrotic debris. Wound is open and draining. Results Labs 07/06/24 12:07 07/06/24 12:07 Labs: Abnormal lab results 07/06/24 07/06/24 Range/Units 12:07 12:23 WBC 11.0 H (4.8-10.8) X10*3/uL RBC 3.75 L D (4.60-5.80) X10*6/uL Hgb 10.9 L D (14.0-18.0) g/dl Hct 33.3 L D (42.0-52.0) % Plt Count 407 H (160-400) X10*3/uL MPV 8.1 L (9.4-12.4) fL Immature Gran % (Auto) 0.5 H (0.0-0.4) % Neut % (Auto) 79.2 H (45-73) % Lymph % (Auto) 11.3 L (20-40) % Abs Immat Gran (auto) 0.06 H (0.00-0.03) X10*3/uL Absolute Neuts (auto) 8.7 H (2.0-8.3) x10*3/uL ESR 97 H (0-15) MM/HR PT 13.8 H (10.9-12.4) SEC INR 1.2 H (0.9-1.1) Sodium 131 L (135-145) mmol/L Anion Gap 10 L (12-20) Alkaline Phosphatase 31 L (39-117) U/L C-Reactive Protein 28.71 H (< or = 0.50) mg/dL Albumin 3.3 L (3.5-5.0) g/dL Urine Blood Small (1+) H (Negative) Urine RBC 3-5 H (0-2) /HPF Short CBC 07/06/24 Range/Units 12:07 WBC 11.0 H (4.8-10.8) X10*3/uL Hgb 10.9 L D (14.0-18.0) g/dl Hct 33.3 L D (42.0-52.0) % Plt Count 407 H (160-400) X10*3/uL BMP 07/06/24 12:07 Sodium 131 L Potassium 4.2 Chloride 96 Carbon Dioxide 29 BUN 14 Creatinine 0.80 Calcium 8.7 D Liver Function 07/06/24 Range/Units 12:07 Total Bilirubin 0.3 (0.0-1.0) mg/dL AST 14 (5-37) U/L ALT 16 (0-40) U/L Alkaline Phosphatase 31 L (39-117) U/L Albumin 3.3 L (3.5-5.0) g/dL Urine 07/06/24 Range/Units 12:23 Urine Color Yellow Urine Appearance Clear Urine pH 7.0 (5.0-9.0) Ur Specific [place] 1.020 (1.005-1.025) Urine Protein Negative (Neg-Trace) mg/dL Urine Glucose (UA) Negative (Negative) mg/dL All other labs normal. Assessment and Plan (1) Decubitus ulcer: Status: Acute (2) Sacral decubitus ulcer, stage IV: Status: Acute Plan At present, continue restorative measures, IV antibiotics, and will write orders for local wound care. Patient being worked up by ID as well to rule out osteomyelitis. Plain films of femur suggest osteomyelitis. Further interventions studies will be directed by the patient's clinical course and results of interventions. To follow with you Procedures Date of Service Date of Service: 07/06/24
[2024-07-06] MEDS: oxyCODONE HCl Immed Release 5 MG TABLET PO (18:11)
[2024-07-06] MEDS: Baclofen 20 MG TABLET PO ×2 (18:16→21:13)
[2024-07-06] MEDS: Flu Vacc TS2024-25(6mos up)/PF 0.5 ML SYRINGE IM (21:13)
[2024-07-06] MEDS: Methenamine Hippurate 1 GM TABLET PO (21:13)
[2024-07-06] MEDS: Docusate Sodium 100 MG CAPSULE PO (21:13)
[2024-07-07] MEDS: Piperacillin Sodium/Tazobactam 3.375 GM in 0.9 % Sodium Chloride 50 ML IV ×5 (00:36→23:38)
[2024-07-07] MEDS: 0.9 % Sodium Chloride Flush 3 ML SYRINGE IVFLUSH ×3 (00:36→20:45)
[2024-07-07] MEDS: Acetaminophen 325 MG TABLET 650 MG PO ×2 (00:42→15:48)
[2024-07-07] MEDS: vancomycin HCL 1,500 MG in 0.9 % Sodium Chloride 500 ML 333.33 MG IV (01:05)
[2024-07-07 03:27] VITALS: BP 97/52; PULSE 77; RESP 16; TEMP 36.2; O2SAT 94
[2024-07-07] MEDS: oxyCODONE HCl Immed Release 5 MG TABLET PO ×3 (03:29→23:48)
[2024-07-07 04:00] VITALS: RESP 16
[2024-07-07 07:10] LABS: Anion Gap 12 (12-20); Blood Urea Nitrogen 10 mg/dL (9-16); Calcium 8.6 mg/dL (8.4-10.2); Carbon Dioxide 25 mmol/L (22-29); Chloride 102 mmol/L (96-108); Estimated Glomerular Filt Rate > 60; Glucose Random 101 mg/dL (60-115); Potassium 4.1 mmol/L (3.3-5.1); Sodium 135 mmol/L (135-145)
[2024-07-07 07:11] LABS: Hematocrit 30.9 % (42.0-52.0); Mean Corpuscular HGB Conc 32.4 g/dl (31.0-36.0); Mean Corpuscular Hemoglobin 29.3 pg (27.0-33.0); Mean Corpuscular Volume 90.6 fL (80.0-98.0); Mean Platelet Volume 8.2 fL (9.4-12.4); Platelet Count 367 X10*3/uL (160-400); Red Blood Count 3.41 X10*6/uL (4.60-5.80); Red Cell Distribution Width 12.8 % (11.0-16.0); White Blood Count 7.8 X10*3/uL (4.8-10.8)
[2024-07-07 07:12] VITALS: BP 115/59; PULSE 74; RESP 18; TEMP 36.7; O2SAT 96
[2024-07-07] MEDS: Docusate Sodium 100 MG CAPSULE PO ×2 (09:09→20:43)
[2024-07-07] MEDS: Gabapentin 300 MG CAPSULE 900 MG PO ×3 (09:09→20:43)
[2024-07-07] MEDS: Baclofen 20 MG TABLET PO ×4 (09:09→20:43)
[2024-07-07] MEDS: Methenamine Hippurate 1 GM TABLET PO ×2 (09:09→20:43)
[2024-07-07] MEDS: Cholecalciferol (Vitamin D3) 25 MCG TABLET 50 MCG PO (09:10)
[2024-07-07 11:09] LABS: Vancomycin Random 14.9 mcg/mL (15-20)
--- NOTE | 2024-07-07 11:19 | HE.PHANOTE ---
LAKISHA Changing dose to 1250mg Q12h, trough came back at 14.9. Next trough 07/08 @1000, predicted [id number]. predicted trough 14.6.
--- NOTE | 2024-07-07 11:41 | HO.PM.IMPN ---
Subjective Subjective Date of Service: 07/07/24 Interval History: seen and evaluated this morning denies any fever or chills CT showed OM no other overnight events Review of Systems Review of Systems: Yes all other systems are reviewed and are negative Physical Exam Vital Signs: Vital Signs: Last Vital Signs Temp 98.1 F 07/07/24 07:12 Pulse 74 07/07/24 07:12 Resp 18 07/07/24 07:12 BP 115/59 L 07/07/24 07:12 Pulse Ox 96 07/07/24 07:12 O2 Del Method Room Air 07/07/24 07:12 BMI result Body Mass Index 29.6 Const: Other: Constitutional : Awake, interactive, not in distress Neck : Normal inspection, Supple Cardiovascular : RRR, no JVP, no lower extremity edema Respiratory : good bilateral air entry, no crackles, wheezes or rhonchi Gastrointestinal: soft, lax, Normal bowel sounds, Non tender Skin : Warm, Dry, A right ischial tuberosity deep wound with 3 cm opening and deep extension Neurological : Alert & oriented x3, Paraplegic Objective Data Active Medications Acetaminophen (Acetaminophen 325 Mg Tablet) 650 mg PO Q6H PRN PRN Reason: Pain, Mild (Pain Scale 1-3), fever or headache Last Admin: 07/07/24 00:42 Dose: 650 mg Documented By: MULUGETA Baclofen (Baclofen 20 Mg Tablet) 20 mg PO QID [facility] Last Admin: 07/07/24 09:09 Dose: 20 mg Documented By: SACHA Benzonatate (Benzonatate 100 Mg Capsule) 100 mg PO TID PRN PRN Reason: Cough Calcium Carbonate (Calcium Carbonate 750 Mg Tab.Chew) 750 mg PO Q4H PRN PRN Reason: Heartburn Docusate Sodium (Docusate Sodium 100 Mg Capsule) 100 mg PO BID [facility] Last Admin: 07/07/24 09:09 Dose: 100 mg Documented By: SACHA Enoxaparin Sodium (Enoxaparin Sodium 40 Mg/0.4 Ml Syringe) 40 mg SUBCUT Q24H [facility] Last Admin: 07/06/24 15:13 Dose: 40 mg Documented By: ROSELINE Gabapentin (Gabapentin 300 Mg Capsule) 900 mg PO TID [facility] Last Admin: 07/07/24 09:09 Dose: 900 mg Documented By: SACHA Piperacillin Sod/Tazobactam (Sod 3.375 gm/ Sodium Chloride) 50 mls @ 100 mls/hr IV Q6H [facility] Last Infusion: 07/07/24 06:43 Dose: Infused Documented By: MULUGETA Vancomycin HCl 1,250 mg/ (Sodium Chloride) 250 mls @ 166.667 mls/hr IV Q12H [facility] Magnesium Hydroxide (Milk Of Magnesia 30 Ml Oral.Susp) 30 ml PO DAILY PRN PRN Reason: Constipation Melatonin (Melatonin 3 Mg Tablet) 6 mg PO BEDTIME PRN PRN Reason: Insomnia Methenamine Hippurate (Methenamine Hippurate 1 Gm Tablet) 1 gm PO BID [facility] Last Admin: 07/07/24 09:09 Dose: 1 gm Documented By: SACHA Nystatin (Nystatin Powder 15 Gm Bottle) 1 appl TOPICAL BID PRN; Protocol PRN Reason: Rash Ondansetron HCl (Ondansetron Hcl 4 Mg/2 Ml Vial) 4 mg IVPUSH Q8H PRN PRN Reason: Nausea and Vomiting Oxycodone HCl (Oxycodone Hcl Immed Release 5 Mg Tablet) 5 mg PO QID PRN PRN Reason: Pain, Moderate(Pain Scale 4-6) Last Admin: 07/07/24 03:29 Dose: 5 mg Documented By: MULUGETA Pharmacy Consult (Consult Rx Vancomycin Dosing) 1 each MISCELLANE DAILY PRN PRN Reason: Consult order Sodium Chloride (0.9 % Sodium Chloride Flush 3 Ml Syringe) 3 ml IVFLUSH QSHIFT [facility] Last Admin: 07/07/24 09:10 Dose: 3 ml Documented By: SACHA Vitamin D (Cholecalciferol (Vitamin D3) 25 Mcg Tablet) 50 mcg PO DAILY [facility] Last Admin: 07/07/24 09:10 Dose: 50 mcg Documented By: SACHA Labs 07/07/24 06:36 07/07/24 06:36 Labs: Laboratory Results - last 24 hr 07/06/24 07/06/24 07/07/24 12:07 12:23 06:36 MCV 88.8 90.6 MCH 29.1 29.3 MCHC 32.7 32.4 RDW 12.6 12.8 Plt Count 407 H 367 MPV 8.1 L 8.2 L Immature Gran % (Auto) 0.5 H Neut % (Auto) 79.2 H Lymph % (Auto) 11.[address] [place] % (Auto) 7.9 Eos % (Auto) 0.8 Baso % (Auto) 0.3 Lymph # (Auto) 1.3 [place] # (Auto) 0.9 Eos # (Auto) 0.1 Baso # (Auto) 0.0 Abs Immat Gran (auto) 0.06 H Absolute Neuts (auto) 8.7 H Absolute Nucleated RBC 0.000 0.000 Nucleated RBC % (auto) 0.0 0.0 ESR 97 H PT 13.8 H INR 1.2 H Anion Gap 10 L 12 Estim Creat Clear Calc 120.0 128.0 Estimated GFR > 60 > 60 Random Glucose 89 101 Lactic Acid 1.1 Calcium 8.7 D 8.6 Total Bilirubin 0.3 AST 14 ALT 16 Alkaline Phosphatase 31 L C-Reactive Protein 28.71 H Total Protein 7.2 Albumin 3.3 L Urine Color Yellow Urine Appearance Clear Urine pH 7.0 Ur Specific [place] 1.020 Urine Protein Negative Urine Glucose (UA) Negative Urine Ketones Negative Urine Blood Small (1+) H Urine Nitrite Negative Ur Leukocyte Esterase Negative Urine RBC 3-5 H Urine WBC 0-5 Ur Squamous Epith Cells 0-2 Urine Bacteria None Seen Hyaline Casts 0-2 Random Vancomycin COVID-19 (ZULEIMA) Negative COVID-19 Clin Com See Note 07/07/24 09:38 MCV MCH MCHC RDW Plt Count MPV Immature Gran % (Auto) Neut % (Auto) Lymph % (Auto) [place] % (Auto) Eos % (Auto) Baso % (Auto) Lymph # (Auto) [place] # (Auto) Eos # (Auto) Baso # (Auto) Abs Immat Gran (auto) Absolute Neuts (auto) Absolute Nucleated RBC Nucleated RBC % (auto) ESR PT INR Anion Gap Estim Creat Clear Calc Estimated GFR Random Glucose Lactic Acid Calcium Total Bilirubin AST ALT Alkaline Phosphatase C-Reactive Protein Total Protein Albumin Urine Color Urine Appearance Urine pH Ur Specific [place] Urine Protein Urine Glucose (UA) Urine Ketones Urine Blood Urine Nitrite Ur Leukocyte Esterase Urine RBC Urine WBC Ur Squamous Epith Cells Urine Bacteria Hyaline Casts Random Vancomycin 14.9 L COVID-19 (ZULEIMA) COVID-19 Clin Com Assessment and Plan (1) Decubitus ulcer: Status: Acute (2) Sacral decubitus ulcer, stage IV: Status: Acute (3) Osteomyelitis: Status: Acute Plan Pt is a 63-year-old male with a PMH significant for?MS with paraplegia, chronically bed/wheelchair-bound, and hx of coccyx decubitus ulcer w/osteomyelitis who presents to the ED for evaluation of worsening right buttock decubitus ulcer. Pt will be admitted to the hospital for treatment and further evaluation of acute right ischial tuberosity osteomyelitis. Acute right ischial tuberosity osteomyelitis w decubitus ulcer Pending cultures Continue IV vancomycin and Zosyn, started 07/06/2024 General surgery following ID consult Place PICC line for IV Abx Air loss mattress Patient positioning q2hr Vancomycin trough Hypotension resolved acute Hyponatremia resolved Follow BMP MS Continue baclofen, gabapentin Recurrent UTIs Continue methenamine NEgative UA Full Code DVT Prophylaxis: Lovenox Pt will require a hospitalization overnight for treatment of Osteomyelitis pending ID evaluation and PICC line placement. Quality Stroke Does the patient have a stroke diagnosis?: No VTE Prior VTE?: No VTE Risk Level:: Medical - moderate - high VTE Device Contraindication: Treatment Not Indicated VTE Drug Contraindication: N/A - Med Ordered
[2024-07-07] MEDS: vancomycin HCL 1,250 MG in 0.9 % Sodium Chloride 250 ML 166.67 MG IV (13:08)
--- NOTE | 2024-07-07 13:21 | PM.PNGS ---
Subjective Subjective Date of Service: 07/07/24 Interval history: Uneventful evening. Patient undergoing local wound care by nursing. Physical Exam Vital Signs: Vital Signs: Last Vital Signs Temp 98.1 F 07/07/24 07:12 Pulse 74 07/07/24 07:12 Resp 18 07/07/24 07:12 BP 115/59 L 07/07/24 07:12 Pulse Ox 96 07/07/24 07:12 O2 Del Method Room Air 07/07/24 07:12 BMI result Body Mass Index 29.6 Back/Spine/Pelvis: Other: Dressing clean dry and intact. Objective Data Active Medications Acetaminophen (Acetaminophen 325 Mg Tablet) 650 mg PO Q6H PRN PRN Reason: Pain, Mild (Pain Scale 1-3), fever or headache Last Admin: 07/07/24 00:42 Dose: 650 mg Documented By: MULUGETA Baclofen (Baclofen 20 Mg Tablet) 20 mg PO QID [facility] Last Admin: 07/07/24 12:23 Dose: 20 mg Documented By: SACHA Benzonatate (Benzonatate 100 Mg Capsule) 100 mg PO TID PRN PRN Reason: Cough Calcium Carbonate (Calcium Carbonate 750 Mg Tab.Chew) 750 mg PO Q4H PRN PRN Reason: Heartburn Docusate Sodium (Docusate Sodium 100 Mg Capsule) 100 mg PO BID [facility] Last Admin: 07/07/24 09:09 Dose: 100 mg Documented By: SACHA Enoxaparin Sodium (Enoxaparin Sodium 40 Mg/0.4 Ml Syringe) 40 mg SUBCUT Q24H [facility] Last Admin: 07/06/24 15:13 Dose: 40 mg Documented By: ROSELINE Gabapentin (Gabapentin 300 Mg Capsule) 900 mg PO TID [facility] Last Admin: 07/07/24 09:09 Dose: 900 mg Documented By: SACHA Piperacillin Sod/Tazobactam (Sod 3.375 gm/ Sodium Chloride) 50 mls @ 100 mls/hr IV Q6H [facility] Last Infusion: 07/07/24 12:59 Dose: Infused Documented By: SACHA Vancomycin HCl 1,250 mg/ (Sodium Chloride) 250 mls @ 166.667 mls/hr IV Q12H [facility] Last Admin: 07/07/24 13:08 Dose: 166.67 mls/hr Documented By: SACHA Magnesium Hydroxide (Milk Of Magnesia 30 Ml Oral.Susp) 30 ml PO DAILY PRN PRN Reason: Constipation Melatonin (Melatonin 3 Mg Tablet) 6 mg PO BEDTIME PRN PRN Reason: Insomnia Methenamine Hippurate (Methenamine Hippurate 1 Gm Tablet) 1 gm PO BID [facility] Last Admin: 07/07/24 09:09 Dose: 1 gm Documented By: SACHA Nystatin (Nystatin Powder 15 Gm Bottle) 1 appl TOPICAL BID PRN; Protocol PRN Reason: Rash Ondansetron HCl (Ondansetron Hcl 4 Mg/2 Ml Vial) 4 mg IVPUSH Q8H PRN PRN Reason: Nausea and Vomiting Oxycodone HCl (Oxycodone Hcl Immed Release 5 Mg Tablet) 5 mg PO QID PRN PRN Reason: Pain, Moderate(Pain Scale 4-6) Last Admin: 07/07/24 03:29 Dose: 5 mg Documented By: MULUGETA Pharmacy Consult (Consult Rx Vancomycin Dosing) 1 each MISCELLANE DAILY PRN PRN Reason: Consult order Sodium Chloride (0.9 % Sodium Chloride Flush 3 Ml Syringe) 3 ml IVFLUSH QSHIFT [facility] Last Admin: 07/07/24 09:10 Dose: 3 ml Documented By: SACHA Vitamin D (Cholecalciferol (Vitamin D3) 25 Mcg Tablet) 50 mcg PO DAILY [facility] Last Admin: 07/07/24 09:10 Dose: 50 mcg Documented By: SACHA Labs 07/07/24 06:36 07/07/24 06:36 Labs: Laboratory Results - last 24 hr 07/06/24 07/07/24 07/07/24 12:07 06:36 09:38 MCV 90.6 MCH 29.3 MCHC 32.4 RDW 12.8 Plt Count 367 MPV 8.2 L Absolute Nucleated RBC 0.000 Nucleated RBC % (auto) 0.0 ESR 97 H Anion Gap 12 Estim Creat Clear Calc 128.0 Estimated GFR > 60 Random Glucose 101 Calcium 8.6 Random Vancomycin 14.9 L Procedures Date of Service Date of Service: 07/07/24 Progress Note: A&P Assessment and plan (1) Decubitus ulcer: Status: Acute (2) Osteomyelitis: Status: Acute Plan We will assess wound again tomorrow to see if bedside debridement is required. Meantime, continue current plan IV antibiotics, local wound care, postural changes to avoid prolonged pressure on the area Time Spent With Patient Time: Total time managing care of this patient today ____ minutes. Quality Stroke Does the patient have a stroke diagnosis?: No VTE Prior VTE?: No VTE Risk Level:: Medical - moderate - high VTE Device Contraindication: Treatment Not Indicated VTE Drug Contraindication: N/A - Med Ordered
--- NOTE | 2024-07-07 15:06 | MHC.CM.PN ---
Addendum entered by Hallie Pompa 07/07/24 15:19: A copy of the patient's HCP has been requested. Original Note: IMM 07/07/24 Male 63 DX R thigh decub question osteo PMH MS wc bound. Patient lives by himself on 1st floor. His dtr lives on upstairs. Per pt report He has safety and skill based pay manager that care for him. He receives visits weekly from Visiting nurse. He states that he has 2 programs that provide the care. He also has a resident care supervisor. DP return home with resumption of services. [facility] transport vs a facility if needed via BLS.
[2024-07-07 15:16] VITALS: BP 121/61; PULSE 84; RESP 18; TEMP 38.1; O2SAT 98
[2024-07-07] MEDS: Enoxaparin Sodium 40 MG/0.4 ML SYRINGE SUBCUT (15:48)
[2024-07-07 17:30] VITALS: TEMP 37.6
[2024-07-07 19:57] VITALS: BP 103/55; PULSE 81; RESP 16; TEMP 36.3; O2SAT 94
[2024-07-08] MEDS: vancomycin HCL 1,250 MG in 0.9 % Sodium Chloride 250 ML 166.67 MG IV ×2 (00:12→12:09)
[2024-07-08 04:00] VITALS: BP 108/58; PULSE 79; RESP 16; TEMP 37.2; O2SAT 95
[2024-07-08] MEDS: Piperacillin Sodium/Tazobactam 3.375 GM in 0.9 % Sodium Chloride 50 ML IV ×2 (05:58→11:31)
[2024-07-08] MEDS: oxyCODONE HCl Immed Release 5 MG TABLET PO ×3 (06:04→21:55)
[2024-07-08 06:46] LABS: Hematocrit 30.6 % (42.0-52.0); Hemoglobin 9.8 g/dl (14.0-18.0); Mean Corpuscular Hemoglobin 28.6 pg (27.0-33.0); Mean Corpuscular Volume 89.2 fL (80.0-98.0); Mean Platelet Volume 8.2 fL (9.4-12.4); Platelet Count 400 X10*3/uL (160-400); Red Blood Count 3.43 X10*6/uL (4.60-5.80); Red Cell Distribution Width 12.8 % (11.0-16.0); White Blood Count 7.5 X10*3/uL (4.8-10.8)
[2024-07-08 07:05] LABS: Anion Gap 10 (12-20); Blood Urea Nitrogen 7 mg/dL (9-16); Calcium 8.8 mg/dL (8.4-10.2); Carbon Dioxide 29 mmol/L (22-29); Chloride 102 mmol/L (96-108); Creatinine Clr Calc Pharmacy 137.1; Estimated Glomerular Filt Rate > 60; Glucose Random 102 mg/dL (60-115); Potassium 3.8 mmol/L (3.3-5.1); Sodium 137 mmol/L (135-145)
[2024-07-08 08:00] VITALS: BP 109/59; PULSE 67; RESP 16; TEMP 36.1; O2SAT 96
[2024-07-08] MEDS: Gabapentin 300 MG CAPSULE 900 MG PO ×3 (08:53→21:56)
[2024-07-08] MEDS: Baclofen 20 MG TABLET PO ×4 (08:53→21:56)
[2024-07-08] MEDS: Methenamine Hippurate 1 GM TABLET PO ×2 (08:53→21:56)
[2024-07-08] MEDS: Cholecalciferol (Vitamin D3) 25 MCG TABLET 50 MCG PO (08:53)
[2024-07-08] MEDS: Docusate Sodium 100 MG CAPSULE PO ×2 (08:53→21:56)
[2024-07-08] MEDS: 0.9 % Sodium Chloride Flush 3 ML SYRINGE IVFLUSH ×3 (08:55→22:02)
--- NOTE | 2024-07-08 10:00 | HO.PICC ---
PICC Line Insertion NPICC Diagnosis: Osteomyelitis Indication: [facility] ABT Pertinent Labs: reviewed Technique: Following informed consent including risks, benefits and alternatives and using sterile technique including cap and mask, sterile gown, glove and drape, the right arm was prepped and draped in the usual sterile fashion of full barrier technique with CHG. Following completion of [place] Protocol the skin and soft tissues were anesthetized with 1% Lidocaine plain. Using ultrasound guidance, right basilic vein access was obtained. Over an 0.018 wire through peel-away sheath, a 4FR single lumen PASV Power PICC line was positioned. Catheter length is 44cm internal length, 0cm external length, for a total trimmed length of 44cm. The procedure was performed in rm 272. Tip verification was performed by Rissa Ortega with Sherlock 3CG. Tip located in SVC. Ultrasound was used to document vein patency and for needle entry. A formal ultrasound picture and cardiac rhythm strip was recorded. Vascular Staking Technician has released the line for use and it is currently dressed with a StatLock, Tegaderm, and CHG disc. Verification has been performed for blood return and line patency. Arm Circumference: 32cm Equipment: [employer] PowerPICC SOLO with Sherlock 3CG Tip Catheter Type: 4FR single lumen PASV Lot #: [id number]
--- NOTE | 2024-07-08 10:40 | PM.PNGS ---
Subjective Subjective Date of Service: 07/08/24 Interval history: No new complaints. Physical Exam Vital Signs: Vital Signs: Last Vital Signs Temp 96.9 F 07/08/24 08:00 Pulse 67 07/08/24 08:00 Resp 16 07/08/24 08:00 BP 109/59 L 07/08/24 08:00 Pulse Ox 96 07/08/24 08:00 O2 Del Method Room Air 07/08/24 08:00 BMI result Body Mass Index 29.6 Const: General: comfortable, no acute distress and alert Orientation/consciousness: patient oriented x3 Resp: Effort & Inspection: normal respiratory effort Skin: Other: right sacral decubitus ulcer with wound opening about 3cm with significant undermining extending superiorly and laterally Neuro: General: patient oriented x3 Objective Data Active Medications Acetaminophen (Acetaminophen 325 Mg Tablet) 650 mg PO Q6H PRN PRN Reason: Pain, Mild (Pain Scale 1-3), fever or headache Last Admin: 07/07/24 15:48 Dose: 650 mg Documented By: SACHA Baclofen (Baclofen 20 Mg Tablet) 20 mg PO QID [facility] Last Admin: 07/08/24 08:53 Dose: 20 mg Documented By: JOSE D Benzonatate (Benzonatate 100 Mg Capsule) 100 mg PO TID PRN PRN Reason: Cough Calcium Carbonate (Calcium Carbonate 750 Mg Tab.Chew) 750 mg PO Q4H PRN PRN Reason: Heartburn Docusate Sodium (Docusate Sodium 100 Mg Capsule) 100 mg PO BID [facility] Last Admin: 07/08/24 08:53 Dose: 100 mg Documented By: JOSE D Enoxaparin Sodium (Enoxaparin Sodium 40 Mg/0.4 Ml Syringe) 40 mg SUBCUT Q24H [facility] Last Admin: 07/07/24 15:48 Dose: 40 mg Documented By: SACHA Gabapentin (Gabapentin 300 Mg Capsule) 900 mg PO TID [facility] Last Admin: 07/08/24 08:53 Dose: 900 mg Documented By: JOSE D Piperacillin Sod/Tazobactam (Sod 3.375 gm/ Sodium Chloride) 50 mls @ 100 mls/hr IV Q6H [facility] Last Infusion: 07/08/24 06:29 Dose: Infused Documented By: ODRISM Vancomycin HCl 1,250 mg/ (Sodium Chloride) 250 mls @ 166.667 mls/hr IV Q12H [facility] Last Infusion: 07/08/24 01:43 Dose: Infused Documented By: WARREN Magnesium Hydroxide (Milk Of Magnesia 30 Ml Oral.Susp) 30 ml PO DAILY PRN PRN Reason: Constipation Melatonin (Melatonin 3 Mg Tablet) 6 mg PO BEDTIME PRN PRN Reason: Insomnia Methenamine Hippurate (Methenamine Hippurate 1 Gm Tablet) 1 gm PO BID [facility] Last Admin: 07/08/24 08:53 Dose: 1 gm Documented By: JOSE D Nystatin (Nystatin Powder 15 Gm Bottle) 1 appl TOPICAL BID PRN; Protocol PRN Reason: Rash Ondansetron HCl (Ondansetron Hcl 4 Mg/2 Ml Vial) 4 mg IVPUSH Q8H PRN PRN Reason: Nausea and Vomiting Oxycodone HCl (Oxycodone Hcl Immed Release 5 Mg Tablet) 5 mg PO QID PRN PRN Reason: Pain, Moderate(Pain Scale 4-6) Last Admin: 07/08/24 06:04 Dose: 5 mg Documented By: WARREN Pharmacy Consult (Consult Rx Vancomycin Dosing) 1 each MISCELLANE DAILY PRN PRN Reason: Consult order Sodium Chloride (0.9 % Sodium Chloride Flush 3 Ml Syringe) 3 ml IVFLUSH QSHIFT [facility] Last Admin: 07/08/24 08:55 Dose: 3 ml Documented By: JOSE D Vitamin D (Cholecalciferol (Vitamin D3) 25 Mcg Tablet) 50 mcg PO DAILY [facility] Last Admin: 07/08/24 08:53 Dose: 50 mcg Documented By: JOSE D Labs 07/08/24 05:46 07/08/24 05:46 Labs: Laboratory Results - last 24 hr 07/07/24 07/08/24 09:38 05:46 MCV 89.2 MCH 28.6 MCHC 32.0 RDW 12.8 Plt Count 400 MPV 8.2 L Absolute Nucleated RBC 0.000 Nucleated RBC % (auto) 0.0 Anion Gap 10 L Estim Creat Clear Calc 137.1 Estimated GFR > 60 Random Glucose 102 Calcium 8.8 Random Vancomycin 14.9 L Microbiology Microbiology Results: Microbiology 07/06/24 12:07 Blood Culture - Preliminary Blood - Venous No growth after 24 hours. 07/06/24 12:07 Blood Culture - Preliminary Blood - Venous No growth after 24 hours. Procedures Date of Service Date of Service: 07/08/24 Progress Note: A&P Assessment and plan (1) Sacral decubitus ulcer, stage IV: Status: Acute Plan Small ulcer with significant undermining of surrounding region, hard to assess wound base. May require unroofing. Can continue wet to dry kerlix packing followed by dry fluffs to be changed daily. Will continue to follow. Time Spent With Patient Time: Total time managing care of this patient today ____ minutes. Quality Stroke Does the patient have a stroke diagnosis?: No VTE Prior VTE?: No VTE Risk Level:: Medical - moderate - high VTE Device Contraindication: Treatment Not Indicated VTE Drug Contraindication: N/A - Med Ordered
[2024-07-08 11:00] LABS: Vancomycin Random 13.6 mcg/mL (15-20)
--- NOTE | 2024-07-08 11:12 | HE.PHANOTE ---
Re: Ovidioo Slight improvement on renal function. Trough returned at 13.6. Continue current dose at 1250 q12h, with predicted AUC 432, predicted trough 12.6. Next trough 07/09 @ 1000.
[2024-07-08 12:12] VITALS: BMI 29.6
--- NOTE | 2024-07-08 12:20 | MHC.CLN ---
NUTRITION CONSULT FOR SKIN INTEGRITY. DIET=REGULAR. WILL BE NPO 07/09 FOR SURGICAL DEBRIDEMENT OF WOUND. NO REPORTED CONCERNS WITH INTAKE OR APPETITE. STAGE IV PRESSURE INJURY TO POSTERIOR SACRUM. ADDING ENSURE MAX BID TO PROMOTE WOUND HEALING. SUPPLEMENT PROVIDES 300 KCALS, 60 G PROTEIN. FOLLOW FOR INTAKE AND WOUND HEALING. SEE CLINICAL NUTRITION ASSESSMENT 07/08/24.
--- NOTE | 2024-07-08 12:27 | MHC.CM.PN ---
Per MD, patient not medically cleared for dc. Plan for OR tomorrow. Will need 6 wks IV abx (dapto vs ertapenem). Patient active w/ [facility]. Return referral sent. Referral also sent to [facility]. CM will continue to follow.
--- NOTE | 2024-07-08 13:00 | HO.WOUND ---
Wound Consult: Attempted 63yr old male admitted to [facility] on 07/06/24 - See progress notes and H&P for detailed history.? Wound consult placed for right Ischial wound POA.? Chart review and discussion with direct care nurse - followed by General Surgery - topical dressing completed by provider this morning - no topical interventions needed by inpatient wound care nurse at this time. Orders in place for wet to dry dressing. Will attempt assessment in future. Right Ischium on admission Etiology: ??Stage 4 Pressure Injury Present on Admission Measurements: unknown Wound Bed: full thickness tissue loss - chart review reveals Goals of Treatment: ? defer to General surgery - per the order wet to dry dressing. off load pressure Recommendations: 1. Turn and Reposition every 2 hours and as needed for patient comfort.? Use pillows or wedges to support off loading positions. 2. Off Load all bony prominences with use of pillows and heel boots if needed.? Apply Preventative foams where needed. ? 3. Monitor for incontinence and moisture control, use barrier creams when needed for prevention and treatment. 4. Provide adequate and supplemental nutrition.? 5. Order low air loss mattress. 6. When applicable maintain blood glucose levels per Providers order. 7. Right Ischium - defer to General surgery - per the order wet to dry dressing. off load pressure Re-consult wound care Nurse for wound deterioration or wound changes.
--- NOTE | 2024-07-08 13:13 | HO.PM.IMPN ---
Subjective Subjective Date of Service: 07/08/24 Interval History: seen and evaluated this morning denies any fever or chills PICC line placed plan for surgery tomorrow no other overnight events Review of Systems Review of Systems: Yes all other systems are reviewed and are negative Physical Exam Vital Signs: Vital Signs: Last Vital Signs Temp 96.9 F 07/08/24 08:00 Pulse 67 07/08/24 08:00 Resp 16 07/08/24 08:00 BP 109/59 L 07/08/24 08:00 Pulse Ox 96 07/08/24 08:00 O2 Del Method Room Air 07/08/24 08:00 BMI result Body Mass Index 29.6 Const: Other: Constitutional : Awake, interactive, not in distress Neck : Normal inspection, Supple Cardiovascular : RRR, no JVP, no lower extremity edema Respiratory : good bilateral air entry, no crackles, wheezes or rhonchi Gastrointestinal: soft, lax, Normal bowel sounds, Non tender Skin : Warm, Dry, A right ischial tuberosity deep wound with 3 cm opening and deep extension Neurological : Alert & oriented x3, Paraplegic Objective Data Active Medications Acetaminophen (Acetaminophen 325 Mg Tablet) 650 mg PO Q6H PRN PRN Reason: Pain, Mild (Pain Scale 1-3), fever or headache Last Admin: 07/07/24 15:48 Dose: 650 mg Documented By: SACHA Baclofen (Baclofen 20 Mg Tablet) 20 mg PO QID [facility] Last Admin: 07/08/24 08:53 Dose: 20 mg Documented By: JOSE D Benzonatate (Benzonatate 100 Mg Capsule) 100 mg PO TID PRN PRN Reason: Cough Calcium Carbonate (Calcium Carbonate 750 Mg Tab.Chew) 750 mg PO Q4H PRN PRN Reason: Heartburn Docusate Sodium (Docusate Sodium 100 Mg Capsule) 100 mg PO BID [facility] Last Admin: 07/08/24 08:53 Dose: 100 mg Documented By: JOSE D Enoxaparin Sodium (Enoxaparin Sodium 40 Mg/0.4 Ml Syringe) 40 mg SUBCUT Q24H [facility] Last Admin: 07/07/24 15:48 Dose: 40 mg Documented By: SACHA Gabapentin (Gabapentin 300 Mg Capsule) 900 mg PO TID [facility] Last Admin: 07/08/24 08:53 Dose: 900 mg Documented By: JOSE D Piperacillin Sod/Tazobactam (Sod 3.375 gm/ Sodium Chloride) 50 mls @ 100 mls/hr IV Q6H [facility] Last Infusion: 07/08/24 12:05 Dose: Infused Documented By: JOSE D Vancomycin HCl 1,250 mg/ (Sodium Chloride) 250 mls @ 166.667 mls/hr IV Q12H [facility] Last Admin: 07/08/24 12:09 Dose: 166.67 mls/hr Documented By: JOSE D Magnesium Hydroxide (Milk Of Magnesia 30 Ml Oral.Susp) 30 ml PO DAILY PRN PRN Reason: Constipation Melatonin (Melatonin 3 Mg Tablet) 6 mg PO BEDTIME PRN PRN Reason: Insomnia Methenamine Hippurate (Methenamine Hippurate 1 Gm Tablet) 1 gm PO BID [facility] Last Admin: 07/08/24 08:53 Dose: 1 gm Documented By: JOSE D Nystatin (Nystatin Powder 15 Gm Bottle) 1 appl TOPICAL BID PRN; Protocol PRN Reason: Rash Ondansetron HCl (Ondansetron Hcl 4 Mg/2 Ml Vial) 4 mg IVPUSH Q8H PRN PRN Reason: Nausea and Vomiting Oxycodone HCl (Oxycodone Hcl Immed Release 5 Mg Tablet) 5 mg PO QID PRN PRN Reason: Pain, Moderate(Pain Scale 4-6) Last Admin: 07/08/24 06:04 Dose: 5 mg Documented By: WARREN Pharmacy Consult (Consult Rx Vancomycin Dosing) 1 each MISCELLANE DAILY PRN PRN Reason: Consult order Sodium Chloride (0.9 % Sodium Chloride Flush 3 Ml Syringe) 3 ml IVFLUSH QSHIFT [facility] Last Admin: 07/08/24 08:55 Dose: 3 ml Documented By: JOSE D Sodium Chloride (0.9 % Sodium Chloride Flush 10 Ml Syringe) 5 ml IVFLUSH TID [facility] Vitamin D (Cholecalciferol (Vitamin D3) 25 Mcg Tablet) 50 mcg PO DAILY [facility] Last Admin: 07/08/24 08:53 Dose: 50 mcg Documented By: JOSE D Labs 07/08/24 05:46 07/08/24 05:46 Labs: Laboratory Results - last 24 hr 07/08/24 07/08/24 05:46 10:30 MCV 89.2 MCH 28.6 MCHC 32.0 RDW 12.8 Plt Count 400 MPV 8.2 L Absolute Nucleated RBC 0.000 Nucleated RBC % (auto) 0.0 Anion Gap 10 L Estim Creat Clear Calc 137.1 Estimated GFR > 60 Random Glucose 102 Calcium 8.8 Random Vancomycin 13.6 L Microbiology Microbiology Results: Microbiology 07/06/24 12:07 Blood Culture - Preliminary Blood - Venous No growth after 24 hours. 07/06/24 12:07 Blood Culture - Preliminary Blood - Venous No growth after 24 hours. Assessment and Plan (1) Decubitus ulcer: Status: Acute (2) Sacral decubitus ulcer, stage IV: Status: Acute (3) Osteomyelitis: Status: Acute (4) MSSA bacteremia: Status: Inactive Plan Pt is a 63-year-old male with a PMH significant for?MS with paraplegia, chronically bed/wheelchair-bound, and hx of coccyx decubitus ulcer w/osteomyelitis who presents to the ED for evaluation of worsening right buttock decubitus ulcer. Pt will be admitted to the hospital for treatment and further evaluation of acute right ischial tuberosity osteomyelitis. Acute right ischial tuberosity osteomyelitis w decubitus ulcer Blood cultures negative General surgery planning surgery tomorrow ID rec likely Daptomycin on Discharge Continue Vancomycin for now 07/06 PICC line placed Air loss mattress, repositioning q2hr Follow Vancomycin trough Hypotension resolved acute Hyponatremia resolved Follow BMP MS Continue baclofen, gabapentin Recurrent UTIs Continue methenamine NEgative UA Full Code DVT Prophylaxis: Lovenox Pt will require a hospitalization overnight for treatment of Osteomyelitis pending surgical intervention today Quality Stroke Does the patient have a stroke diagnosis?: No VTE Prior VTE?: No VTE Risk Level:: Medical - moderate - high VTE Device Contraindication: Treatment Not Indicated VTE Drug Contraindication: N/A - Med Ordered
--- NOTE | 2024-07-08 13:48 | HE.PHANOTE ---
Re: Jose Orellana cancelled the order earlier today, then put in joseo consult in after. Increased dose to 1500 mg q12h with predicted AUC 518, predicted trough 15.1. Next trough to be drawn 07/09 @ 1000.
[2024-07-08] MEDS: Enoxaparin Sodium 40 MG/0.4 ML SYRINGE SUBCUT (15:13)
[2024-07-08 15:57] VITALS: BP 126/66; PULSE 85; RESP 14; TEMP 36.9; O2SAT 94
[2024-07-08] MEDS: 0.9 % Sodium Chloride Flush 10 ML SYRINGE 5 ML IVFLUSH ×2 (16:33→22:03)
[2024-07-08 19:19] VITALS: BP 116/68; PULSE 79; RESP 16; TEMP 36.6; O2SAT 94
[2024-07-08] MEDS: vancomycin HCL 1,500 MG in 0.9 % Sodium Chloride 500 ML 333.33 MG IV (23:43)
[2024-07-09] VITALS (9 sets, daily range): BP systolic 112–129; BP diastolic 57–72; PULSE 70–92; RESP 12–16; TEMP 36–36.9; O2SAT 91–98
[2024-07-09 06:24] LABS: Anion Gap 12 (12-20); Blood Urea Nitrogen 14 mg/dL (9-16); Calcium 9.2 mg/dL (8.4-10.2); Carbon Dioxide 29 mmol/L (22-29); Chloride 101 mmol/L (96-108); Creatinine Clr Calc Pharmacy 124.6; Estimated Glomerular Filt Rate > 60; Glucose Random 105 mg/dL (60-115); Potassium 4.2 mmol/L (3.3-5.1); Sodium 138 mmol/L (135-145)
[2024-07-09] MEDS: oxyCODONE HCl Immed Release 5 MG TABLET PO ×4 (08:21→23:35)
[2024-07-09] MEDS: Docusate Sodium 100 MG CAPSULE PO ×2 (09:14→19:56)
[2024-07-09] MEDS: Baclofen 20 MG TABLET PO ×4 (09:14→19:56)
[2024-07-09] MEDS: Gabapentin 300 MG CAPSULE 900 MG PO ×3 (09:14→19:56)
[2024-07-09] MEDS: Cholecalciferol (Vitamin D3) 25 MCG TABLET 50 MCG PO (09:14)
[2024-07-09] MEDS: Methenamine Hippurate 1 GM TABLET PO ×2 (09:14→19:56)
[2024-07-09] MEDS: 0.9 % Sodium Chloride Flush 3 ML SYRINGE IVFLUSH ×3 (09:15→23:38)
[2024-07-09] MEDS: 0.9 % Sodium Chloride Flush 10 ML SYRINGE 5 ML IVFLUSH ×3 (09:17→22:27)
[2024-07-09 10:51] LABS: Vancomycin Random 14.3 mcg/mL (15-20)
--- NOTE | 2024-07-09 10:51 | P.CDIM_ITS ---
PROVIDER RESPONSE TEXT: To clarify, the appropriate diagnosis supported by the clinical indicators: Decubitus ulcer right ischium Stage IV: confirmed QUERY TEXT: PHYSICIAN'S DOCUMENTATION REQUEST Date of Query: 07/09/2024 06:56 AM EDT Patient Name: Jono Davey Admit Date: 07/06/2024 Dear Peter Orellana MD, A review of the medical record indicates additional documentation may be needed. Please review below and update the documentation accordingly. Clinical Indicators: Progress notes Assessment and Plan: Sacral decubitus ulcer Stage IV. Wound care notes Right Ischium Stage 4 present on admission. Wet to dry dressing off load pressure. Defer to General surgery. Based on the above, possible to document the above diagnosis within the written body of the Plan, if agreed: Decubitus ulcer right ischium Stage IV possible, probable, suspected etc. Other (explain) Clinically unable to determine (explain) Thank you, Lu Arzate, CCS, CDIS Use of terms such as suspected, likely, concern for, or probable (associated with a specific diagnosi s that is being evaluated, monitored, or treated as if it exists) are acceptable and can be coded in the inpatient se tting, when documented at the time of discharge. Please use your independent medical judgment in providing your response. THIS QUERY IS PART OF THE PERMANENT MEDICAL RECORD
--- NOTE | 2024-07-09 10:59 | HE.PHANOTE ---
Renal function is stable. Trough returned as 14.3, pt is therapeutic. Continue current dose of 1500 q24h, with predict AUC 526, predicted trough 15.1, and 100% probability to treat. Next trough 07/11 @ 1000.
--- NOTE | 2024-07-09 11:04 | HO.PM.IMPN ---
Subjective Subjective Date of Service: 07/09/24 Interval History: seen and evaluated this morning denies any fever or chills PICC line placed plan for surgery today no other overnight events Review of Systems Review of Systems: Yes all other systems are reviewed and are negative Physical Exam Vital Signs: Vital Signs: Last Vital Signs Temp 97.6 F 07/09/24 07:40 Pulse 81 07/09/24 07:40 Resp 16 07/09/24 07:40 BP 128/68 07/09/24 07:40 Pulse Ox 94 07/09/24 07:40 O2 Del Method Room Air 07/09/24 07:40 BMI result Body Mass Index 29.6 Const: Other: Constitutional : Awake, interactive, not in distress Neck : Normal inspection, Supple Cardiovascular : RRR, no JVP, no lower extremity edema Respiratory : good bilateral air entry, no crackles, wheezes or rhonchi Gastrointestinal: soft, lax, Normal bowel sounds, Non tender Skin : Warm, Dry, A right ischial tuberosity deep wound with 3 cm opening and deep extension Neurological : Alert & oriented x3, Paraplegic Objective Data Active Medications Acetaminophen (Acetaminophen 325 Mg Tablet) 650 mg PO Q6H PRN PRN Reason: Pain, Mild (Pain Scale 1-3), fever or headache Last Admin: 07/07/24 15:48 Dose: 650 mg Documented By: SACHA Baclofen (Baclofen 20 Mg Tablet) 20 mg PO QID [facility] Last Admin: 07/09/24 09:14 Dose: 20 mg Documented By: JULISA Benzonatate (Benzonatate 100 Mg Capsule) 100 mg PO TID PRN PRN Reason: Cough Calcium Carbonate (Calcium Carbonate 750 Mg Tab.Chew) 750 mg PO Q4H PRN PRN Reason: Heartburn Docusate Sodium (Docusate Sodium 100 Mg Capsule) 100 mg PO BID [facility] Last Admin: 07/09/24 09:14 Dose: 100 mg Documented By: JULISA Enoxaparin Sodium (Enoxaparin Sodium 40 Mg/0.4 Ml Syringe) 40 mg SUBCUT Q24H [facility] Last Admin: 07/08/24 15:13 Dose: 40 mg Documented By: JOSE D Gabapentin (Gabapentin 300 Mg Capsule) 900 mg PO TID [facility] Last Admin: 07/09/24 09:14 Dose: 900 mg Documented By: JULISA Vancomycin HCl 1,500 mg/ (Sodium Chloride) 500 mls @ 333.333 mls/hr IV Q24H [facility] Last Infusion: 07/09/24 01:14 Dose: Infused Documented By: JAKY Magnesium Hydroxide (Milk Of Magnesia 30 Ml Oral.Susp) 30 ml PO DAILY PRN PRN Reason: Constipation Melatonin (Melatonin 3 Mg Tablet) 6 mg PO BEDTIME PRN PRN Reason: Insomnia Methenamine Hippurate (Methenamine Hippurate 1 Gm Tablet) 1 gm PO BID [facility] Last Admin: 07/09/24 09:14 Dose: 1 gm Documented By: JULISA Nystatin (Nystatin Powder 15 Gm Bottle) 1 appl TOPICAL BID PRN; Protocol PRN Reason: Rash Ondansetron HCl (Ondansetron Hcl 4 Mg/2 Ml Vial) 4 mg IVPUSH Q8H PRN PRN Reason: Nausea and Vomiting Oxycodone HCl (Oxycodone Hcl Immed Release 5 Mg Tablet) 5 mg PO QID PRN PRN Reason: Pain, Moderate(Pain Scale 4-6) Last Admin: 07/09/24 08:21 Dose: 5 mg Documented By: JULISA Pharmacy Consult (Consult Rx Vancomycin Dosing) 1 each MISCELLANE DAILY PRN PRN Reason: Consult order Sodium Chloride (0.9 % Sodium Chloride Flush 3 Ml Syringe) 3 ml IVFLUSH QSHIFT [facility] Last Admin: 07/09/24 09:15 Dose: 3 ml Documented By: JULISA Sodium Chloride (0.9 % Sodium Chloride Flush 10 Ml Syringe) 5 ml IVFLUSH TID [facility] Last Admin: 07/09/24 09:17 Dose: 5 ml Documented By: JULISA Vitamin D (Cholecalciferol (Vitamin D3) 25 Mcg Tablet) 50 mcg PO DAILY [facility] Last Admin: 07/09/24 09:14 Dose: 50 mcg Documented By: JULISA Labs 07/08/24 05:46 07/09/24 05:21 Labs: Laboratory Results - last 24 hr 07/09/24 07/09/24 05:21 10:16 Hold Purple Top SEE NOTE Anion Gap 12 Estim Creat Clear Calc 124.6 Estimated GFR > 60 Random Glucose 105 Calcium 9.2 Random Vancomycin 14.3 L Microbiology Microbiology Results: Microbiology 07/06/24 12:07 Blood Culture - Preliminary Blood - Venous No growth after 48 hours. 07/06/24 12:07 Blood Culture - Preliminary Blood - Venous No growth after 48 hours. 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 Pt will be admitted to the hospital for treatment and further evaluation of acute right ischial tuberosity osteomyelitis. 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 Blood cultures negative General surgery planning surgery this afternoon ID rec likely Daptomycin on Discharge Continue Vancomycin for now 07/06, PICC line placed Air loss mattress, repositioning q2hr Follow Vancomycin trough Hypotension resolved acute Hyponatremia resolved Follow BMP MS Continue baclofen, gabapentin Recurrent UTIs Continue methenamine NEgative UA Full Code DVT Prophylaxis: Lovenox Pt will require a hospitalization overnight for treatment of Osteomyelitis pending surgical intervention today Quality Stroke Does the patient have a stroke diagnosis?: No VTE Prior VTE?: No VTE Risk Level:: Medical - moderate - high VTE Device Contraindication: Treatment Not Indicated VTE Drug Contraindication: N/A - Med Ordered
--- NOTE | 2024-07-09 12:53 | P.CNID_ITS ---
History of Present Illness Data of Consult Service Date: 07/08/24 Requesting physician: Peter Orellana Primary Care Provider: Ambrocio Tenorio CNP HPI Reason for consult: OM right ischial tuberosity He presents with right thigh worsening ulcer for last three months. He has evaluation showing right ischial tuberosity OM. He has no organism seen in blood or wound. Review of Systems 2 Review of Systems: Yes all other systems are reviewed and are negative PMFSH Past Medical History Medical History Osteomyelitis Sacral decubitus ulcer Multiple sclerosis Family History Family history: reviewed and not pertinent Social History Social History Household Members: None Household Members Other:: Daughter lives upstairs in seperate apartment Housing: Apartment Do you presently have visiting nurse or other home services: Yes Patient Tobacco Use Status: Never used Tobacco Advance Directives Date on File: 04/09/23 service: No Meds Allergies Allergy/AdvReac Type Severity Reaction Status Date / Time No Known Allergies Allergy Verified 07/06/24 11:31 Active Medications: Current Medications Acetaminophen (Acetaminophen 325 Mg Tablet) 650 mg PO Q6H PRN PRN Reason: Pain, Mild (Pain Scale 1-3), fever or headache Last Admin: 07/07/24 15:48 Dose: 650 mg Baclofen (Baclofen 20 Mg Tablet) 20 mg PO QID [facility] Last Admin: 07/09/24 09:14 Dose: 20 mg Benzonatate (Benzonatate 100 Mg Capsule) 100 mg PO TID PRN PRN Reason: Cough Calcium Carbonate (Calcium Carbonate 750 Mg Tab.Chew) 750 mg PO Q4H PRN PRN Reason: Heartburn Docusate Sodium (Docusate Sodium 100 Mg Capsule) 100 mg PO BID [facility] Last Admin: 07/09/24 09:14 Dose: 100 mg Enoxaparin Sodium (Enoxaparin Sodium 40 Mg/0.4 Ml Syringe) 40 mg SUBCUT Q24H [facility] Last Admin: 07/08/24 15:13 Dose: 40 mg Gabapentin (Gabapentin 300 Mg Capsule) 900 mg PO TID [facility] Last Admin: 07/09/24 09:14 Dose: 900 mg Vancomycin HCl 1,500 mg/ (Sodium Chloride) 500 mls @ 333.333 mls/hr IV Q24H [facility] Last Infusion: 07/09/24 01:14 Dose: Infused Magnesium Hydroxide (Milk Of Magnesia 30 Ml Oral.Susp) 30 ml PO DAILY PRN PRN Reason: Constipation Melatonin (Melatonin 3 Mg Tablet) 6 mg PO BEDTIME PRN PRN Reason: Insomnia Methenamine Hippurate (Methenamine Hippurate 1 Gm Tablet) 1 gm PO BID [facility] Last Admin: 07/09/24 09:14 Dose: 1 gm Nystatin (Nystatin Powder 15 Gm Bottle) 1 appl TOPICAL BID PRN; Protocol PRN Reason: Rash Ondansetron HCl (Ondansetron Hcl 4 Mg/2 Ml Vial) 4 mg IVPUSH Q8H PRN PRN Reason: Nausea and Vomiting Oxycodone HCl (Oxycodone Hcl Immed Release 5 Mg Tablet) 5 mg PO QID PRN PRN Reason: Pain, Moderate(Pain Scale 4-6) Last Admin: 07/09/24 08:21 Dose: 5 mg Pharmacy Consult (Consult Rx Vancomycin Dosing) 1 each MISCELLANE DAILY PRN PRN Reason: Consult order Sodium Chloride (0.9 % Sodium Chloride Flush 3 Ml Syringe) 3 ml IVFLUSH QSHIFT [facility] Last Admin: 07/09/24 09:15 Dose: 3 ml Sodium Chloride (0.9 % Sodium Chloride Flush 10 Ml Syringe) 5 ml IVFLUSH TID [facility] Last Admin: 07/09/24 09:17 Dose: 5 ml Vitamin D (Cholecalciferol (Vitamin D3) 25 Mcg Tablet) 50 mcg PO DAILY [facility] Last Admin: 07/09/24 09:14 Dose: 50 mcg Home Medications ?Medication ?Instructions ?Recorded ?Confirmed ?Last Taken ?Type baclofen 20 mg tablet 20 mg PO QID 04/09/23 07/06/24 07/06/24 09:00 History calcium carbonate (Tums) 400 mg PO DAILY 04/09/23 07/06/24 07/06/24 09:00 History cholecalciferol (vitamin D3) 50 50 mcg PO DAILY 04/09/23 07/06/24 07/06/24 09:00 History mcg (2,000 unit) capsule (Vitamin D3) docusate sodium 100 mg capsule 100 mg PO BID 04/09/23 07/06/24 07/06/24 09:00 History gabapentin 300 mg capsule 900 mg PO TID 04/09/23 07/06/24 07/06/24 09:00 History meloxicam 15 mg tablet 15 mg PO DAILY 04/09/23 07/06/24 07/06/24 09:00 History methenamine hippurate 1 gram tablet 1 g PO BID 04/09/23 07/06/24 07/06/24 09:00 History nystatin 100,000 unit/gram topical 1 appl topical BID PRN Rash 04/09/23 07/06/24 04/08/23 07:00 History powder (Nystop) oxycodone-acetaminophen 5 mg-325 1 tab PO QID PRN Pain 04/09/23 07/06/24 Unknown History mg tablet Physical Exam 2 Vital Signs: Vital Signs: Last Vital Signs Temp 97.6 F 07/09/24 07:40 Pulse 81 07/09/24 07:40 Resp 16 07/09/24 07:40 BP 128/68 07/09/24 07:40 Pulse Ox 94 07/09/24 07:40 O2 Del Method Room Air 07/09/24 07:40 BMI result Body Mass Index 29.6 Const: General: cooperative HEENT: Head: Yes normal to inspection Face and sinus: Yes normal facial exam Mouth: Normal oral and palatal mucosa present Teeth and gingiva: d entition normal Eyes: General: appearance normal, both eyes and all related structures P upils: Equal, round and reactive pupils present Resp: Effort & Inspection: normal respiratory effort Cardio: Rate: regular rate Rhythm: regular rhythm GI: Palpation (GI): Soft to palpation and nontender : General: Yes no CVA tenderness Back/Spine/Pelvis: Back: no CVA tenderness Skin: Other: open area right pelvic area wound Neuro: General: moves all extremities Cranial nerves: Yes Equal, round and reactive pupils present Extrem: General: Yes normal to inspection Psych: Appearance: grossly normal Results Labs 07/08/24 05:46 07/09/24 05:21 Labs: BMP 07/09/24 05:21 Sodium 138 Potassium 4.2 Chloride 101 Carbon Dioxide 29 BUN 14 Creatinine 0.77 Calcium 9.2 Microbiology Microbiology Results: Microbiology 07/06/24 12:07 Blood - Venous Blood Culture - Preliminary No growth after 48 hours. 07/06/24 12:07 Blood - Venous Blood Culture - Preliminary No growth after 48 hours. Assessment and Plan (1) Decubitus ulcer: Status: Acute (2) Sacral decubitus ulcer, stage IV: Status: Acute Plan Would give six weeks IV Daptomycin 6-8 mg/kg/day. Weekly CK and creatinine.
--- NOTE | 2024-07-09 14:06 | MHC.SHP ---
Pre-Procedural Eval Section A - 24 Hr Update-Section A only Date of Service: 07/09/24 The patient is an INPATIENT: Yes Changes since office visit: No Cold of Flu in the past 2 weeks, No New Medical Problems, No Changes in Medication and No Patient answered all questions The patient has been examined within 24 hours of the surgical procedure. The History & Physical has been completed within 30 days and I have reviewed it.: Yes Section B - Complete if H&P > 30 days Chief Complaint: Right thigh decubitus ulcer, ?osteo Allergies: Allergies Allergy/AdvReac Type Severity Reaction Status Date / Time No Known Allergies Allergy Verified 07/09/24 13:29 Plan I have reviewed the history and physical and performed a pertinent physical examination on my patient. No changes have occurred unless specified. Time Spent With Patient Time: Total time managing care of this patient today ____ minutes.
--- NOTE | 2024-07-09 15:08 | P.CONAN_ITS ---
HPI - Anesthesia Eval Consult details Narrative: 63 M for debridement PMFSH Active Problems Active Problems: All Active Problems Decubitus ulcer (Acute) Sacral decubitus ulcer, stage IV (Acute) Osteomyelitis (Acute) Past Medical History Medical History Osteomyelitis Sacral decubitus ulcer Multiple sclerosis Family History Family history of problems with anesthesia: No Surgical History History of Problems with Anesthesia: No Social History Social History Household Members: None Household Members Other:: Daughter lives upstairs in seperate apartment Housing: Apartment Do you presently have visiting nurse or other home services: Yes Patient Tobacco Use Status: Never used Tobacco Advance Directives Date on File: 04/09/23 service: No Meds Allergies Allergy/AdvReac Type Severity Reaction Status Date / Time No Known Allergies Allergy Verified 07/09/24 13:29 Active Medications: Current Medications Acetaminophen (Acetaminophen 325 Mg Tablet) 650 mg PO Q6H PRN PRN Reason: Pain, Mild (Pain Scale 1-3), fever or headache Last Admin: 07/07/24 15:48 Dose: 650 mg Baclofen (Baclofen 20 Mg Tablet) 20 mg PO QID [facility] Last Admin: 07/09/24 13:07 Dose: 20 mg Benzonatate (Benzonatate 100 Mg Capsule) 100 mg PO TID PRN PRN Reason: Cough Calcium Carbonate (Calcium Carbonate 750 Mg Tab.Chew) 750 mg PO Q4H PRN PRN Reason: Heartburn Docusate Sodium (Docusate Sodium 100 Mg Capsule) 100 mg PO BID [facility] Last Admin: 07/09/24 09:14 Dose: 100 mg Enoxaparin Sodium (Enoxaparin Sodium 40 Mg/0.4 Ml Syringe) 40 mg SUBCUT Q24H [facility] Last Admin: 07/08/24 15:13 Dose: 40 mg Gabapentin (Gabapentin 300 Mg Capsule) 900 mg PO TID [facility] Last Admin: 07/09/24 09:14 Dose: 900 mg Vancomycin HCl 1,500 mg/ (Sodium Chloride) 500 mls @ 333.333 mls/hr IV Q24H [facility] Last Infusion: 07/09/24 01:14 Dose: Infused Magnesium Hydroxide (Milk Of Magnesia 30 Ml Oral.Susp) 30 ml PO DAILY PRN PRN Reason: Constipation Melatonin (Melatonin 3 Mg Tablet) 6 mg PO BEDTIME PRN PRN Reason: Insomnia Methenamine Hippurate (Methenamine Hippurate 1 Gm Tablet) 1 gm PO BID [facility] Last Admin: 07/09/24 09:14 Dose: 1 gm Nystatin (Nystatin Powder 15 Gm Bottle) 1 appl TOPICAL BID PRN; Protocol PRN Reason: Rash Ondansetron HCl (Ondansetron Hcl 4 Mg/2 Ml Vial) 4 mg IVPUSH Q8H PRN PRN Reason: Nausea and Vomiting Oxycodone HCl (Oxycodone Hcl Immed Release 5 Mg Tablet) 5 mg PO QID PRN PRN Reason: Pain, Moderate(Pain Scale 4-6) Last Admin: 07/09/24 08:21 Dose: 5 mg Pharmacy Consult (Consult Rx Vancomycin Dosing) 1 each MISCELLANE DAILY PRN PRN Reason: Consult order Sodium Chloride (0.9 % Sodium Chloride Flush 3 Ml Syringe) 3 ml IVFLUSH QSHIFT [facility] Last Admin: 07/09/24 09:15 Dose: 3 ml Sodium Chloride (0.9 % Sodium Chloride Flush 10 Ml Syringe) 5 ml IVFLUSH TID [facility] Last Admin: 07/09/24 09:17 Dose: 5 ml Vitamin D (Cholecalciferol (Vitamin D3) 25 Mcg Tablet) 50 mcg PO DAILY [facility] Last Admin: 07/09/24 09:14 Dose: 50 mcg Home Medications ?Medication ?Instructions ?Recorded ?Confirmed ?Last Taken ?Type baclofen 20 mg tablet 20 mg PO QID 04/09/23 07/06/24 07/06/24 09:00 History calcium carbonate (Tums) 400 mg PO DAILY 04/09/23 07/06/24 07/06/24 09:00 History cholecalciferol (vitamin D3) 50 50 mcg PO DAILY 04/09/23 07/06/24 07/06/24 09:00 History mcg (2,000 unit) capsule (Vitamin D3) docusate sodium 100 mg capsule 100 mg PO BID 04/09/23 07/06/24 07/06/24 09:00 History gabapentin 300 mg capsule 900 mg PO TID 04/09/23 07/06/24 07/06/24 09:00 History meloxicam 15 mg tablet 15 mg PO DAILY 04/09/23 07/06/24 07/06/24 09:00 History methenamine hippurate 1 gram tablet 1 g PO BID 04/09/23 07/06/24 07/06/24 09:00 History nystatin 100,000 unit/gram topical 1 appl topical BID PRN Rash 04/09/23 07/06/24 04/08/23 07:00 History powder (Nystop) oxycodone-acetaminophen 5 mg-325 1 tab PO QID PRN Pain 04/09/23 07/06/24 Unknown History mg tablet Exam Height,Weight and Vital Signs: Height 6 ft 1 in Weight 224 lb 3.362 oz Last Vital Signs Temp 98.3 F 07/09/24 13:48 Pulse 70 07/09/24 13:48 Resp 14 07/09/24 13:48 BP 112/68 07/09/24 13:48 Pulse Ox 95 07/09/24 13:48 O2 Del Method Room Air 07/09/24 13:48 Pertinent Lab Results Pertinent Lab Results: Laboratory Tests 07/06/24 07/06/24 07/07/24 12:07 12:23 06:36 WBC 11.0 H 7.8 RBC 3.75 L D 3.41 L Hgb 10.9 L D 10.0 L Hct 33.3 L D 30.9 L MCV 88.8 90.6 MCH 29.1 29.3 MCHC 32.7 32.4 RDW 12.6 12.8 Plt Count 407 H 367 MPV 8.1 L 8.2 L Immature Gran % (Auto) 0.5 H Neut % (Auto) 79.2 H Lymph % (Auto) 11.3 L [place] % (Auto) 7.9 Eos % (Auto) 0.8 Baso % (Auto) 0.3 Lymph # (Auto) 1.3 [place] # (Auto) 0.9 Eos # (Auto) 0.1 Baso # (Auto) 0.0 Abs Immat Gran (auto) 0.06 H Absolute Neuts (auto) 8.7 H Absolute Nucleated RBC 0.000 0.000 Nucleated RBC % (auto) 0.0 0.0 ESR 97 H Hold Purple Top PT 13.8 H INR 1.2 H Sodium 131 L 135 Potassium 4.2 4.1 Chloride 96 102 Carbon Dioxide 29 25 Anion Gap 10 L 12 BUN 14 10 Creatinine 0.80 0.75 Estim Creat Clear Calc 120.0 128.0 Estimated GFR > 60 > 60 Random Glucose 89 101 Lactic Acid 1.1 Calcium 8.7 D 8.6 Total Bilirubin 0.3 AST 14 ALT 16 Alkaline Phosphatase 31 L C-Reactive Protein 28.71 H Total Protein 7.2 Albumin 3.3 L Urine Color Yellow Urine Appearance Clear Urine pH 7.0 Ur Specific [place] 1.020 Urine Protein Negative Urine Glucose (UA) Negative Urine Ketones Negative Urine Blood Small (1+) H Urine Nitrite Negative Ur Leukocyte Esterase Negative Urine RBC 3-5 H Urine WBC 0-5 Ur Squamous Epith Cells 0-2 Urine Bacteria None Seen Hyaline Casts 0-2 Random Vancomycin COVID-19 ([facility]) Negative COVID-19 Clin Com See Note 07/07/24 07/08/24 07/08/24 09:38 05:46 10:30 WBC 7.5 RBC 3.43 L Hgb 9.8 L Hct 30.6 L MCV 89.2 MCH 28.6 MCHC 32.0 RDW 12.8 Plt Count 400 MPV 8.2 L Immature Gran % (Auto) Neut % (Auto) Lymph % (Auto) [place] % (Auto) Eos % (Auto) Baso % (Auto) Lymph # (Auto) [place] # (Auto) Eos # (Auto) Baso # (Auto) Abs Immat Gran (auto) Absolute Neuts (auto) Absolute Nucleated RBC 0.000 Nucleated RBC % (auto) 0.0 ESR Hold Purple Top PT INR Sodium 137 Potassium 3.8 Chloride 102 Carbon Dioxide 29 Anion Gap 10 L BUN 7 L Creatinine 0.70 Estim Creat Clear Calc 137.1 Estimated GFR > 60 Random Glucose 102 Lactic Acid Calcium 8.8 Total Bilirubin AST ALT Alkaline Phosphatase C-Reactive Protein Total Protein Albumin Urine Color Urine Appearance Urine pH Ur Specific [place] Urine Protein Urine Glucose (UA) Urine Ketones Urine Blood Urine Nitrite Ur Leukocyte Esterase Urine RBC Urine WBC Ur Squamous Epith Cells Urine Bacteria Hyaline Casts Random Vancomycin 14.9 L 13.6 L COVID-19 ([facility]) COVID-19 Clin Com 07/09/24 07/09/24 05:21 10:16 WBC RBC Hgb Hct MCV MCH MCHC RDW Plt Count MPV Immature Gran % (Auto) Neut % (Auto) Lymph % (Auto) [place] % (Auto) Eos % (Auto) Baso % (Auto) Lymph # (Auto) [place] # (Auto) Eos # (Auto) Baso # (Auto) Abs Immat Gran (auto) Absolute Neuts (auto) Absolute Nucleated RBC Nucleated RBC % (auto) ESR Hold Purple Top SEE NOTE PT INR Sodium 138 Potassium 4.2 Chloride 101 Carbon Dioxide 29 Anion Gap 12 BUN 14 Creatinine 0.77 Estim Creat Clear Calc 124.6 Estimated GFR > 60 Random Glucose 105 Lactic Acid Calcium 9.2 Total Bilirubin AST ALT Alkaline Phosphatase C-Reactive Protein Total Protein Albumin Urine Color Urine Appearance Urine pH Ur Specific [place] Urine Protein Urine Glucose (UA) Urine Ketones Urine Blood Urine Nitrite Ur Leukocyte Esterase Urine RBC Urine WBC Ur Squamous Epith Cells Urine Bacteria Hyaline Casts Random Vancomycin 14.3 L COVID-19 ([facility]) COVID-19 Clin Com Airway Mallampati Class: II TM Dist: >3cm Neck ROM: Full Loose/Missing/Broken Teeth: Yes Assessment and Plan Assessment Anesthesia Assessment: Anesthesia Plan Discussed Final Anesthetic Review Family History of Problems with Anesthesia: No History of Problems with Anesthesia: No NPO: Yes ASA Class: III Final Preanesthetic Review: No Changes in Pt Med Stat, Meds/Allgs Chart Revie wed, Consent Obtained/Reviewed and Anes Risks/Benef Reviewed Patient Risk: Intermediate Procedure Risk: Low Anesthetic Plan Anesthetic Plan: GA Disposition: Standard PACU
--- NOTE | 2024-07-09 15:12 | W.PM.OPN ---
Operative Note Operative Note Date of Service: 07/09/24 Narrative: Preop diagnosis: Decubitus ulcer on the sacrum and the buttock Postop diagnosis: The same, with ulcer extending to the deep muscle, measuring about 10 cm x 8 cm with note of coating of nonviable tissue and skin Procedure: Sharp excisional debridement decubitus ulcer on the sacrum and buttock, right Surgeon: Yadiel Frank MD hospital medical assistant: MARLIN Lopez The patient is a 63-year-old male with multiple sclerosis, bed-bound, with a sacral and right buttock decubitus ulcer with note of nonviable coating tissue and significant undermining. I therefore explained to him it was best to proceed with excisional debridement the operating room. He understood the technique of the planned procedure as well as the risks, benefits, and alternatives. He was brought to the operating room and placed in left lateral decubitus position and under general anesthesia via laryngeal mask airway. The area of the sacrum and the buttocks were prepped and draped in the usual sterile fashion. A surgical time-out was done. The patient was receiving scheduled antibiotics There was note of this large ulcer in the area as described above, with note of a coating of nonviable chronic tissue especially in the superior aspect. There was note of significant undermining of skin superiorly with a rim of nonviable skin subcutaneous fat I proceeded to excise this full-thickness of the skin and subcutaneous fat on the superior aspect of the wound with a blade 15. I then proceeded to excise all the nonviable tissue surrounding the area as well as the base of the ulcer itself using Mosley scissors. I then curetted the entire wound base using a scratch pad down to viable tissue. The open wound that was debrided was about 10 x 8 cm and extended down to the level of the muscle. I cauterized oozing areas to achieve hemostasis. We copiously irrigated Once hemostasis was confirmed, I applied normal saline packing into the entire wound and incisions dry dressings on top. The procedure was then completed The patient tolerated procedure well. There were no immediate complications. Initial and final counts of sponges and instruments were correct. Estimated blood loss less than 25 cc The patient was then extubated and transferred to the recovery room with stable vital signs
[2024-07-09] MEDS: Enoxaparin Sodium 40 MG/0.4 ML SYRINGE SUBCUT (16:00)
[2024-07-09] MEDS: vancomycin HCL 1,500 MG in 0.9 % Sodium Chloride 500 ML 333.33 MG IV (23:20)
[2024-07-10] MEDS: Morphine Sulfate 4 MG/ML CARTRIDGE IVPUSH ×3 (04:01→16:04)
[2024-07-10 06:29] LABS: Hematocrit 32.8 % (42.0-52.0); Hemoglobin 10.5 g/dl (14.0-18.0); Mean Corpuscular Hemoglobin 28.8 pg (27.0-33.0); Mean Corpuscular Volume 90.1 fL (80.0-98.0); Mean Platelet Volume 8.1 fL (9.4-12.4); Platelet Count 435 X10*3/uL (160-400); Red Blood Count 3.64 X10*6/uL (4.60-5.80); Red Cell Distribution Width 12.9 % (11.0-16.0); White Blood Count 7.7 X10*3/uL (4.8-10.8)
[2024-07-10 06:34] LABS: Anion Gap 12 (12-20); Blood Urea Nitrogen 8 mg/dL (9-16); Carbon Dioxide 28 mmol/L (22-29); Chloride 101 mmol/L (96-108); Creatinine Clr Calc Pharmacy 147.7; Estimated Glomerular Filt Rate > 60; Glucose Random 106 mg/dL (60-115); Potassium 3.9 mmol/L (3.3-5.1); Sodium 137 mmol/L (135-145)
[2024-07-10] MEDS: Docusate Sodium 100 MG CAPSULE PO ×2 (07:02→20:56)
[2024-07-10] MEDS: Baclofen 20 MG TABLET PO ×4 (07:02→20:56)
[2024-07-10] MEDS: oxyCODONE HCl Immed Release 5 MG TABLET PO (07:02)
[2024-07-10] MEDS: Methenamine Hippurate 1 GM TABLET PO ×2 (07:02→20:55)
[2024-07-10] MEDS: Cholecalciferol (Vitamin D3) 25 MCG TABLET 50 MCG PO (07:02)
[2024-07-10] MEDS: Gabapentin 300 MG CAPSULE 900 MG PO ×3 (07:02→20:55)
[2024-07-10] MEDS: 0.9 % Sodium Chloride Flush 3 ML SYRINGE IVFLUSH ×3 (07:05→23:38)
[2024-07-10] MEDS: 0.9 % Sodium Chloride Flush 10 ML SYRINGE 5 ML IVFLUSH ×3 (07:05→21:30)
[2024-07-10 07:45] VITALS: BP 105/61; PULSE 75; RESP 18; TEMP 36.6; O2SAT 93
[2024-07-10 08:03] VITALS: RESP 18
--- NOTE | 2024-07-10 08:07 | HO.STUDPN_ITS ---
Subjective Subjective Date of Service: 07/10/24 <Anitha chiquis - Last Filed: 07/10/24 08:17> 07/10/24 <Neyda Lopez PA-C - Last Filed: 07/10/24 10:35> 07/10/24 <Yadiel Frank MD - Last Filed: 07/10/24 14:25> Interval History: Pt is reports 6/10 pain in sacral back. Pt also reports that he feels his groin pulled and has 7-8/10 pain. When he lays flat pain does down to his ceron. He reports having an incident such as this years ago. Pt is eating solids and tolerating food well. <[facility] - Last Filed: 07/10/24 08:17> Constitutional fatigue (due to pain not able to sleep well), no fever, no chills <[facility] - Last Filed: 07/10/24 08:17> Cardiovascular no palpitations <[facility] - Last Filed: 07/10/24 08:17> Respiratory no cough, no SOB <[facility] - Last Filed: 07/10/24 08:17> Gastrointestinal Normal stools (pt has colostomy bag), no N/V <[facility] - Last Filed: 07/10/24 08:17> Genitourinary no dysuria <[facility] - Last Filed: 07/10/24 08:17> Neurologic numbness in whole body due to hx of MS, some tingling(pt reports current medication helping) <[facility] - Last Filed: 07/10/24 08:17> Physical Exam 2 Vital Signs: Vital Signs: Last Vital Signs Temp 97.9 F 07/10/24 07:45 Pulse 75 07/10/24 07:45 Resp 18 07/10/24 08:03 BP 105/61 07/10/24 07:45 Pulse Ox 93 07/10/24 07:45 O2 Del Method Room Air 07/10/24 07:45 O2 Flow Rate 2 07/09/24 15:10 BMI result Body Mass Index 29.6 <[facility] - Last Filed: 07/10/24 08:17> Const: Other: alert, well appearing, Oriented x3 <[facility] - Last Filed: 07/10/24 08:17> Resp: Other: normal WOB, no wheezing <[facility] - Last Filed: 07/10/24 08:17> Cardio: Other: RRR, nl S1 S2 <[facility] - Last Filed: 07/10/24 08:17> Back/Spine/Pelvis: Other: Wound dressing dry. intact on sacral back. <[facility] - Last Filed: 07/10/24 08:17> Skin: Other: decubitus ulcer measuring 6.5x6x4.5cm and undermining extending to 6cm superiorly wound bed with some granulation and exudative tissue at base, no necrosis <Neyda Lopez PA-C - Last Filed: 07/10/24 10:35> Objective Data Active Medications Acetaminophen (Acetaminophen 325 Mg Tablet) 650 mg PO Q6H PRN PRN Reason: Pain, Mild (Pain Scale 1-3), fever or headache Last Admin: 07/07/24 15:48 Dose: 650 mg Documented By: SACHA Baclofen (Baclofen 20 Mg Tablet) 20 mg PO QID [facility] Last Admin: 07/10/24 07:02 Dose: 20 mg Documented By: KAILASH Benzonatate (Benzonatate 100 Mg Capsule) 100 mg PO TID PRN PRN Reason: Cough Calcium Carbonate (Calcium Carbonate 750 Mg Tab.Chew) 750 mg PO Q4H PRN PRN Reason: Heartburn Docusate Sodium (Docusate Sodium 100 Mg Capsule) 100 mg PO BID [facility] Last Admin: 07/10/24 07:02 Dose: 100 mg Documented By: KAILASH Enoxaparin Sodium (Enoxaparin Sodium 40 Mg/0.4 Ml Syringe) 40 mg SUBCUT Q24H [facility] Last Admin: 07/09/24 16:00 Dose: 40 mg Documented By: JULISA Gabapentin (Gabapentin 300 Mg Capsule) 900 mg PO TID [facility] Last Admin: 07/10/24 07:02 Dose: 900 mg Documented By: KAILASH Vancomycin HCl 1,500 mg/ (Sodium Chloride) 500 mls @ 333.333 mls/hr IV Q24H [facility] Last Infusion: 07/10/24 01:05 Dose: Infused Documented By: JAKY Magnesium Hydroxide (Milk Of Magnesia 30 Ml Oral.Susp) 30 ml PO DAILY PRN PRN Reason: Constipation Melatonin (Melatonin 3 Mg Tablet) 6 mg PO BEDTIME PRN PRN Reason: Insomnia Methenamine Hippurate (Methenamine Hippurate 1 Gm Tablet) 1 gm PO BID [facility] Last Admin: 07/10/24 07:02 Dose: 1 gm Documented By: KAILASH Morphine Sulfate (Morphine Sulfate 4 Mg/Ml Cartridge) 4 mg IVPUSH Q4H PRN; Protocol PRN Reason: Pain, Severe (Pain Scale 7-10) Last Admin: 07/10/24 08:03 Dose: 4 mg Documented By: COTEMA Naloxone HCl (Naloxone Hcl 0.4 Mg/Ml Vial) 0.04 mg IVPUSH Q5M PRN PRN Reason: Excessive sedation or RR < 8 Nystatin (Nystatin Powder 15 Gm Bottle) 1 appl TOPICAL BID PRN; Protocol PRN Reason: Rash Ondansetron HCl (Ondansetron Hcl 4 Mg/2 Ml Vial) 4 mg IVPUSH Q8H PRN PRN Reason: Nausea and Vomiting Oxycodone HCl (Oxycodone Hcl Immed Release 5 Mg Tablet) 10 mg PO QID PRN PRN Reason: Pain, Moderate(Pain Scale 4-6) Pharmacy Consult (Consult Rx Vancomycin Dosing) 1 each MISCELLANE DAILY PRN PRN Reason: Consult order Sodium Chloride (0.9 % Sodium Chloride Flush 3 Ml Syringe) 3 ml IVFLUSH QSHIFT [facility] Last Admin: 07/10/24 07:05 Dose: 3 ml Documented By: KAILASH Sodium Chloride (0.9 % Sodium Chloride Flush 10 Ml Syringe) 5 ml IVFLUSH TID [facility] Last Admin: 07/10/24 07:05 Dose: 5 ml Documented By: KAILASH Vitamin D (Cholecalciferol (Vitamin D3) 25 Mcg Tablet) 50 mcg PO DAILY [facility] Last Admin: 07/10/24 07:02 Dose: 50 mcg Documented By: KAILASH <Anitha Mcqueen - Last Filed: 07/10/24 08:17> Labs CBC & Chem 7: 07/10/24 05:37 07/10/24 05:37 <Anitha Mcqueen - Last Filed: 07/10/24 08:17> Labs: Laboratory Results - last 24 hr 07/09/24 07/10/24 10:16 05:37 MCV 90.1 MCH 28.8 MCHC 32.0 RDW 12.9 Plt Count 435 H MPV 8.1 L Absolute Nucleated RBC 0.000 Nucleated RBC % (auto) 0.0 Anion Gap 12 Estim Creat Clear Calc 147.7 Estimated GFR > 60 Random Glucose 106 Calcium 9.0 Random Vancomycin 14.3 L <Anitha Joshid - Last Filed: 07/10/24 08:17> Assessment and Plan (1) Sacral decubitus ulcer, stage IV: Status: Acute <Anitha Homeromad - Last Filed: 07/10/24 08:17> Assessment and Plan: Some exudates at the base of the wound Possibly start on wound VAC tomorrow Wet-to-dry packing placed today Explained plan to patient Seen and examined independently <Yadiel Frank MD - Last Filed: 07/10/24 14:25> Assessment and Plan: 63 yr old male 1 day post op excisional debridement decubitus ulcer on the sacrum and buttock. Pt is having discomfort, continue with pain management. Continue wound care by changing dressing, and possible VAC therapy today to help with healing. <Anitha Mcqueen - Last Filed: 07/10/24 08:17> 63 yr old male 1 day post op excisional debridement decubitus ulcer on the sacrum and buttock. Pt is having discomfort, continue with pain management. Continue wound care by changing dressing, and possible VAC therapy today to help with healing. POD # 1 s/p sharp excisional debridement decubitus ulcer on the sacrum and buttock, right. Wound bed with some granulation as well as exudative tissue at base, no necrosis. Currently not ready for wound vac but no additional debridement currently needed. Can continue with wet to dry packing for now. Seen with ED [facility]. If not ready in next day or so but wound is trending in right direction, can dc with packing and f/u with wound care center for eventual wound vac placement. <Neyda Lopez PA-C - Last Filed: 07/10/24 10:35> Quality Stroke Does the patient have a stroke diagnosis?: No <Anitha Mcqueen - Last Filed: 07/10/24 08:17> VTE Prior VTE?: No <Anitha Ahmad - Last Filed: 07/10/24 08:17> VTE Risk Level:: Medical - moderate - high <Anitha Ahmad - Last Filed: 07/10/24 08:17> VTE Device Contraindication: Treatment Not Indicated <Anitha Joshid - Last Filed: 07/10/24 08:17> VTE Drug Contraindication: N/A - Med Ordered <Anitha Homerolennoxd - Last Filed: 07/10/24 08:17>
[2024-07-10] MEDS: oxyCODONE HCl Immed Release 5 MG TABLET 10 MG PO ×3 (08:18→21:15)
--- NOTE | 2024-07-10 10:01 | MHC.CLN ---
F/U DIET=REGULAR. PO INTAKE APPEARS GOOD. STAGE IV PRESSURE INJURY TO POSTERIOR SACRUM. ENSURE MAX BID TO PROMOTE WOUND HEALING. SUPPLEMENT PROVIDES 300 KCALS, 60 G PROTEIN. FOLLOW FOR INTAKE AND WOUND HEALING.
--- NOTE | 2024-07-10 10:17 | HO.PM.IMPN ---
Subjective Subjective Date of Service: 07/10/24 Interval History: increased pain Physical Exam Vital Signs: Vital Signs: Last Vital Signs Temp 97.9 F 07/10/24 07:45 Pulse 75 07/10/24 07:45 Resp 18 07/10/24 08:03 BP 105/61 07/10/24 07:45 Pulse Ox 93 07/10/24 07:45 O2 Del Method Room Air 07/10/24 07:45 O2 Flow Rate 2 07/09/24 15:10 BMI result Body Mass Index 29.6 Const: General: cooperative HEENT: Head: Yes normal to inspection Face and sinus: Yes normal facial exam Mouth: Normal oral and palatal mucosa present Teeth and gingiva: dentition normal Eyes: General: appearance normal, both eyes and all related structures Pupils: Equal, round and reactive pupils present Resp: Effort & Inspection: normal respiratory effort Cardio: Rate: regular rate Rhythm: regular rhythm GI: Palpation (GI): Soft to palpation and nontender : General: Yes no CVA tenderness Back/Spine/Pelvis: Back: no CVA tenderness Skin: Other: open area right pelvic area wound Neuro: General: moves all extremities Cranial nerves: Yes Equal, round and reactive pupils present Extrem: General: Yes normal to inspection Psych: Appearance: grossly normal Objective Data Active Medications Acetaminophen (Acetaminophen 325 Mg Tablet) 650 mg PO Q6H PRN PRN Reason: Pain, Mild (Pain Scale 1-3), fever or headache Last Admin: 07/07/24 15:48 Dose: 650 mg Documented By: SACHA Baclofen (Baclofen 20 Mg Tablet) 20 mg PO QID [facility] Last Admin: 07/10/24 07:02 Dose: 20 mg Documented By: KAILASH Benzonatate (Benzonatate 100 Mg Capsule) 100 mg PO TID PRN PRN Reason: Cough Calcium Carbonate (Calcium Carbonate 750 Mg Tab.Chew) 750 mg PO Q4H PRN PRN Reason: Heartburn Docusate Sodium (Docusate Sodium 100 Mg Capsule) 100 mg PO BID [facility] Last Admin: 07/10/24 07:02 Dose: 100 mg Documented By: KAILASH Enoxaparin Sodium (Enoxaparin Sodium 40 Mg/0.4 Ml Syringe) 40 mg SUBCUT Q24H [facility] Last Admin: 07/09/24 16:00 Dose: 40 mg Documented By: JULISA Gabapentin (Gabapentin 300 Mg Capsule) 900 mg PO TID [facility] Last Admin: 07/10/24 07:02 Dose: 900 mg Documented By: KAILASH Vancomycin HCl 1,500 mg/ (Sodium Chloride) 500 mls @ 333.333 mls/hr IV Q24H [facility] Last Infusion: 07/10/24 01:05 Dose: Infused Documented By: JAKY Magnesium Hydroxide (Milk Of Magnesia 30 Ml Oral.Susp) 30 ml PO DAILY PRN PRN Reason: Constipation Melatonin (Melatonin 3 Mg Tablet) 6 mg PO BEDTIME PRN PRN Reason: Insomnia Methenamine Hippurate (Methenamine Hippurate 1 Gm Tablet) 1 gm PO BID [facility] Last Admin: 07/10/24 07:02 Dose: 1 gm Documented By: KAILASH Morphine Sulfate (Morphine Sulfate 4 Mg/Ml Cartridge) 4 mg IVPUSH Q4H PRN; Protocol PRN Reason: Pain, Severe (Pain Scale 7-10) Last Admin: 07/10/24 08:03 Dose: 4 mg Documented By: SUKHDEV Naloxone HCl (Naloxone Hcl 0.4 Mg/Ml Vial) 0.04 mg IVPUSH Q5M PRN PRN Reason: Excessive sedation or RR < 8 Nystatin (Nystatin Powder 15 Gm Bottle) 1 appl TOPICAL BID PRN; Protocol PRN Reason: Rash Ondansetron HCl (Ondansetron Hcl 4 Mg/2 Ml Vial) 4 mg IVPUSH Q8H PRN PRN Reason: Nausea and Vomiting Oxycodone HCl (Oxycodone Hcl Immed Release 5 Mg Tablet) 10 mg PO QID PRN PRN Reason: Pain, Moderate(Pain Scale 4-6) Last Admin: 07/10/24 08:18 Dose: 10 mg Documented By: KAILASH Pharmacy Consult (Consult Rx Vancomycin Dosing) 1 each MISCELLANE DAILY PRN PRN Reason: Consult order Sodium Chloride (0.9 % Sodium Chloride Flush 3 Ml [facility]ringe) [facility] Last Admin: 07/10/24 07:05 Dose: 3 ml Documented By: KAILASH Sodium Chloride (0.9 % Sodium Chloride Flush 10 Ml Syringe) 5 ml IVFLUSH TID [facility] Last Admin: 07/10/24 07:05 Dose: 5 ml Documented By: KAILASH Vitamin D (Cholecalciferol (Vitamin D3) 25 Mcg Tablet) 50 mcg PO DAILY [facility] Last Admin: 07/10/24 07:02 Dose: 50 mcg Documented By: KAILASH Labs 07/10/24 05:37 07/10/24 05:37 Labs: Laboratory Results - last 24 hr 07/09/24 07/10/24 10:16 05:37 MCV 90.1 MCH 28.8 MCHC 32.0 RDW 12.9 Plt Count 435 H MPV 8.1 L Absolute Nucleated RBC 0.000 Nucleated RBC % (auto) 0.0 Anion Gap 12 Estim Creat Clear Calc 147.7 Estimated GFR > 60 Random Glucose 106 Calcium 9.0 Random Vancomycin 14.3 L Assessment and Plan (1) Decubitus ulcer: Status: Acute (2) Sacral decubitus ulcer, stage IV: Status: Acute (3) Osteomyelitis: Status: Acute Plan 63M PMH MS with paraplegia, chronically bed/wheelchair-bound, and hx of coccyx decubitus ulcer w/osteomyelitis who presented to the ED for evaluation of worsening right buttock decubitus ulcer. 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 Blood cultures negative s/p debridement 07/09/24 ID rec Daptomycin on Discharge end 08/16/24 Continue Vancomycin for now 07/06, PICC line placed Air loss mattress, repositioning q2hr weekly bmp cpk Hypotension resolved acute Hyponatremia resolved MS Continue baclofen, gabapentin Recurrent UTIs Continue methenamine NEgative UA Full Code DVT Prophylaxis: Lovenox reason for continued hospitalization:wound vac, dispo planning Quality Stroke Does the patient have a stroke diagnosis?: No VTE Prior VTE?: No VTE Risk Level:: Medical - moderate - high VTE Device Contraindication: Treatment Not Indicated VTE Drug Contraindication: N/A - Med Ordered
--- NOTE | 2024-07-10 13:03 | MHC.CM.PN ---
EMR reviewed and per MD rounds, pt is not medically cleared for discharge due to management of osteomyelitis with wound vac placement pending.
--- NOTE | 2024-07-10 13:58 | HO.WOUND ---
Wound Consult: Follow up 63yr old male admitted to [facility] [place] on 07/06/24 - See progress notes and H&P for detailed history.? Wound consult placed for right Ischial wound POA.? Wound was debrided and is followed by general surgery team - Dr. Frank request assessment for wound vac readiness. Wound bed assessed with Neyda ISAAC at bedside. Orders in place for wet to dry dressing, recommend continuing with wet to dry at this time wound bed does not appear ready for wound vac as there remains adherent yellow slough to the base of the wound bed. Right Ischium on admission 07/10/24 Location: Right Ischium Etiology: ??Stage 4 Pressure Injury Present on Admission Measurements: 6.5cm x 6cm x 4.5cm with undermining noted at 12 o'clock max depth of 6.5cm Wound Bed: red moist tissue with adherent fibrinous yellow slough adherent to wound bed with rough bone exposed in undermining area - providers are aware Edges: Unattached Drainage: serosang, lópez drainage no odor noted Periwound: Mild erythema noted - intact no induration no fluctuance noted Goals of Treatment: ? continue wet to dry dressing. off load pressure re assess in future for wound vac readiness. Sacrum assessed - intact - evidence of previous PI with scar tissue noted - preventative sacral foam recommended. Recommendations: 1. Turn and Reposition every 2 hours and as needed for patient comfort.? Use pillows or wedges to support off loading positions. 2. Off Load all bony prominences with use of pillows and heel boots if needed.? Apply Preventative foams where needed. ? 3. Monitor for incontinence and moisture control, use barrier creams when needed for prevention and treatment. 4. Provide adequate and supplemental nutrition.? 5. Order low air loss mattress. 6. When applicable maintain blood glucose levels per Providers order. 7. Right Ischium - Wet to dry dressing. off load pressure 8. Sacrum - Off Load Pressure - preventative sacral foam recommended. Re-consult wound care Nurse for wound deterioration or wound changes.
[2024-07-10 15:11] VITALS: BP 119/73; PULSE 80; RESP 20; TEMP 36.9; O2SAT 97
[2024-07-10] MEDS: Enoxaparin Sodium 40 MG/0.4 ML SYRINGE SUBCUT (16:04)
[2024-07-10 19:20] VITALS: BP 121/76; PULSE 86; RESP 20; TEMP 36.6; O2SAT 96
[2024-07-10] MEDS: Throat Lozenge, Medicated LOZENGE 1 LOZENGE MUCOUS MEM (21:15)
[2024-07-10] MEDS: vancomycin HCL 1,500 MG in 0.9 % Sodium Chloride 500 ML 333.33 MG IV (23:34)
[2024-07-11 03:29] VITALS: BP 121/63; PULSE 73; RESP 16; TEMP 36.2; O2SAT 96
[2024-07-11] MEDS: oxyCODONE HCl Immed Release 5 MG TABLET 10 MG PO (05:48)
[2024-07-11 06:22] LABS: Anion Gap 10 (12-20); Blood Urea Nitrogen 11 mg/dL (9-16); Calcium 8.8 mg/dL (8.4-10.2); Carbon Dioxide 30 mmol/L (22-29); Chloride 101 mmol/L (96-108); Creatinine Clr Calc Pharmacy 131.5; Estimated Glomerular Filt Rate > 60; Glucose Fasting 110 mg/dL (60-99); Potassium 4.2 mmol/L (3.3-5.1); Sodium 137 mmol/L (135-145)
[2024-07-11 06:44] LABS: Hematocrit 32.5 % (42.0-52.0); Hemoglobin 10.4 g/dl (14.0-18.0); Mean Corpuscular Hemoglobin 29.1 pg (27.0-33.0); Mean Corpuscular Volume 90.8 fL (80.0-98.0); Mean Platelet Volume 8.1 fL (9.4-12.4); Platelet Count 456 X10*3/uL (160-400); Red Blood Count 3.58 X10*6/uL (4.60-5.80); White Blood Count 7.1 X10*3/uL (4.8-10.8)
--- NOTE | 2024-07-11 07:19 | HO.STUDPN_ITS ---
Subjective Subjective Date of Service: 07/11/24 <Anitha chiquis - Last Filed: 07/11/24 07:29> 07/11/24 <Neyda Lopez PA-C - Last Filed: 07/11/24 08:53> 07/11/24 <Yadiel Frank MD - Last Filed: 07/11/24 15:23> Interval History: Pt reports 7/10 soreness in sacral back. Pt also 5-6/10 groin pain that worsens with movement and spasm. BM and urinating with no concerns. Pt is eating solid foods with no concerns. Some reflux present, pt is not sure when this worsens. Pt is using incentive spirometer about 5 times every hour. No SOB. [facility] - Last Filed: 07/11/24 07:29> Constitutional some fatigue due to pain, no fever, no chills <Anitha mad - Last Filed: 07/11/24 07:29> Cardiovascular no palpitaions <[facility] - Last Filed: 07/11/24 07:29> Respiratory no SOB, no cough <[facility] - Last Filed: 07/11/24 07:29> Gastrointestinal no appetite changes, no N/V <Anitha mad - Last Filed: 07/11/24 07:29> Genitourinary no burning, no dysuria [facility] Last Filed: 07/11/24 07:29> Neurologic numbness (hx of MS), some tinglign <[facility] - Last Filed: 07/11/24 07:29> Physical Exam 2 Vital Signs: Vital Signs: Last Vital Signs Temp 97.1 F 07/11/24 03:29 Pulse 73 07/11/24 03:29 Resp 16 07/11/24 03:29 BP 121/63 07/11/24 03:29 Pulse Ox 96 07/11/24 03:29 O2 Del Method Room Air 07/11/24 03:29 O2 Flow Rate 2 07/09/24 15:10 BMI result Body Mass Index 29.6 <Anitha mad - Last Filed: 07/11/24 07:29> Const: Other: well apearing, alert, oriented x3 <Anitha mad - Last Filed: 07/11/24 07:29> Resp: Other: normal WOB, no wheezing , rhonchi <[facility] - Last Filed: 07/11/24 07:29> Cardio: Other: RRR, nl S1 S2 <[facility] - Last Filed: 07/11/24 07:29> : Other: colostomy bag in tact, no abdominal tenderness on palpation, soft, nondistended <[facility] - Last Filed: 07/11/24 07:29> Back/Spine/Pelvis: Other: sacral wound dressing intact <[facility] - Last Filed: 07/11/24 07:29> Objective Data Active Medications Acetaminophen (Acetaminophen 325 Mg Tablet) 650 mg PO Q6H PRN PRN Reason: Pain, Mild (Pain Scale 1-3), fever or headache Last Admin: 07/07/24 15:48 Dose: 650 mg Documented By: SACHA Baclofen (Baclofen 20 Mg Tablet) 20 mg PO QID [facility] Last Admin: 07/10/24 20:56 Dose: 20 mg Documented By: CARLTON Benzocaine (Throat Lozenge, Medicated Lozenge) 1 lozenge MUCOUS MEM Q2H PRN PRN Reason: Sore Throat Last Admin: 07/10/24 21:15 Dose: 1 lozenge Documented By: CARLTON Benzonatate (Benzonatate 100 Mg Capsule) 100 mg PO TID PRN PRN Reason: Cough Calcium Carbonate (Calcium Carbonate 750 Mg Tab.Chew) 750 mg PO Q4H PRN PRN Reason: Heartburn Docusate Sodium (Docusate Sodium 100 Mg Capsule) 100 mg PO BID [facility] Last Admin: 07/10/24 20:56 Dose: 100 mg Documented By: CARLTON Enoxaparin Sodium (Enoxaparin Sodium 40 Mg/0.4 Ml Syringe) 40 mg SUBCUT Q24H [facility] Last Admin: 07/10/24 16:04 Dose: 40 mg Documented By: CARLTON Gabapentin (Gabapentin 300 Mg Capsule) 900 mg PO TID [facility] Last Admin: 07/10/24 20:55 Dose: 900 mg Documented By: CARLTON Vancomycin HCl 1,500 mg/ (Sodium Chloride) 500 mls @ 333.333 mls/hr IV Q24H [facility] Last Infusion: 07/11/24 01:23 Dose: Infused Documented By: CARLTON Magnesium Hydroxide (Milk Of Magnesia 30 Ml Oral.Susp) 30 ml PO DAILY PRN PRN Reason: Constipation Melatonin (Melatonin 3 Mg Tablet) 6 mg PO BEDTIME PRN PRN Reason: Insomnia Methenamine Hippurate (Methenamine Hippurate 1 Gm Tablet) 1 gm PO BID [facility] Last Admin: 07/10/24 20:55 Dose: 1 gm Documented By: CARLTON Morphine Sulfate (Morphine Sulfate 4 Mg/Ml Cartridge) 4 mg IVPUSH Q4H PRN; Protocol PRN Reason: Pain, Severe (Pain Scale 7-10) Last Admin: 07/10/24 16:04 Dose: 4 mg Documented By: CARLTON Naloxone HCl (Naloxone Hcl 0.4 Mg/Ml Vial) 0.04 mg IVPUSH Q5M PRN PRN Reason: Excessive sedation or RR < 8 Nystatin (Nystatin Powder 15 Gm Bottle) 1 appl TOPICAL BID PRN; Protocol PRN Reason: Rash Ondansetron HCl (Ondansetron Hcl 4 Mg/2 Ml Vial) 4 mg IVPUSH Q8H PRN PRN Reason: Nausea and Vomiting Oxycodone HCl (Oxycodone Hcl Immed Release 5 Mg Tablet) 10 mg PO QID PRN PRN Reason: Pain, Moderate(Pain Scale 4-6) Last Admin: 07/11/24 05:48 Dose: 10 mg Documented By: CARLTON Pharmacy Consult (Consult Rx Vancomycin Dosing) 1 each MISCELLANE DAILY PRN PRN Reason: Consult order Sodium Chloride (0.9 % Sodium Chloride Flush 3 Ml Syringe) 3 ml IVFLUSH QSHIFT [facility] Last Admin: 07/10/24 23:38 Dose: 3 ml Documented By: CARLTON Sodium Chloride (0.9 % Sodium Chloride Flush 10 Ml Syringe) 5 ml IVFLUSH TID [facility] Last Admin: 07/10/24 21:30 Dose: 5 ml Documented By: CARLTON Vitamin D (Cholecalciferol (Vitamin D3) 25 Mcg Tablet) 50 mcg PO DAILY [facility] Last Admin: 07/10/24 07:02 Dose: 50 mcg Documented By: KAILASH <Anitha Ahmad - Last Filed: 07/11/24 07:29> Labs CBC & Chem 7: 07/11/24 05:36 07/11/24 05:36 <Anitha Mcqueen - Last Filed: 07/11/24 07:29> Labs: Laboratory Results - last 24 hr 07/11/24 05:36 MCV 90.8 MCH 29.1 MCHC 32.0 RDW 13.0 Plt Count 456 H MPV 8.1 L Absolute Nucleated RBC 0.000 Nucleated RBC % (auto) 0.0 Anion Gap 10 L Estim Creat Clear Calc 131.5 Estimated GFR > 60 Fasting Glucose 110 H Calcium 8.8 <Anitha chiquis - Last Filed: 07/11/24 07:29> Assessment and Plan (1) Decubitus ulcer: Status: Acute <[facility] - Last Filed: 07/11/24 07:29> Assessment and Plan: ?63 yr old male 2 day post op excisional debridement decubitus ulcer on the sacrum and buttock.? Pt is having discomfort, continue with pain management. Continue wet to dry packing. ?Pt was seen yesterday and was not ready for wound vac. Assess today to see if ready for wound vac, if not today then plan to dc with wound care instructions, and f/u with wound care center.? <Anithasa Mcqueen - Last Filed: 07/11/24 07:29> ?63 yr old male 2 day post op excisional debridement decubitus ulcer on the sacrum and buttock.? Pt is having discomfort, continue with pain management. Continue wet to dry packing. ?Pt was seen yesterday and was not ready for wound vac. Assess today to see if ready for wound vac, if not today then plan to dc with wound care instructions, and f/u with wound care center.? <Neyda Lopez PA-C - Last Filed: 07/11/24 08:53> Assessment and Plan: Agree with above assessment and plan. POD #2 s/p post op excisional debridement decubitus ulcer on the sacrum and buttock. Wound overall remains clean with some remaining slough on base. The patient is asking to go home. Hospitalists report he is medically stable and the wound is overall doing well with wet to dry and does not require further debridement but he will require a lot of support and daily dressing changes. He reports he has two home aids to help. Will discuss with case management regarding disposition and VNA. The other option would be STR which he has refused in the past. If he remains inpatient, plan for BID wet to dry packing/dressing changes today and wound vac placement tomorrow. <Neyda Lopez PA-C - Last Filed: 07/11/24 08:53> Agree with above assessment and plan. POD #2 s/p post op excisional debridement decubitus ulcer on the sacrum and buttock. Wound overall remains clean with some remaining slough on base. The patient is asking to go home. Hospitalists report he is medically stable and the wound is overall doing well with wet to dry and does not require further debridement but he will require a lot of support and daily dressing changes. He reports he has two home aids to help. Will discuss with case management regarding disposition and VNA. The other option would be STR which he has refused in the past. If he remains inpatient, plan for BID wet to dry packing/dressing changes today and wound vac placement tomorrow. Seen and examined with MARLIN Lopez and wound care nurse Therese Wet-to-dry dressings reapplied Re-evaluate tomorrow for possible wound VAC <Yadiel Frank MD - Last Filed: 07/11/24 15:23> Quality Stroke Does the patient have a stroke diagnosis?: No <Anitha Ahmad - Last Filed: 07/11/24 07:29> VTE Prior VTE?: No <Anitha Ahmad - Last Filed: 07/11/24 07:29> VTE Risk Level:: Medical - moderate - high <Anitha Ahmad - Last Filed: 07/11/24 07:29> VTE Device Contraindication: Treatment Not Indicated <Anitha Ahmad - Last Filed: 07/11/24 07:29> VTE Drug Contraindication: N/A - Med Ordered <Anitha Ahmad - Last Filed: 07/11/24 07:29>
[2024-07-11 07:21] VITALS: BP 106/58; PULSE 76; RESP 16; TEMP 36.1; O2SAT 94
[2024-07-11] MEDS: Morphine Sulfate 4 MG/ML CARTRIDGE IVPUSH ×3 (08:57→21:22)
--- NOTE | 2024-07-11 08:59 | PM.DS ---
DS: Providers Provider Date of Service: 07/12/24 Date of admission: 07/06/24 14:16 Date of discharge: 07/12/24 Primary care physician: Ambrocio Tenorio CNP Consults: 07/06/24 14:27 Consult to General Surgery Routine Consulting Provider: [facility] Reason for consultation: Right thigh decubitus ulcer w/necrosis, ?osteo 07/06/24 16:22 Consult to Infectious Diseases Routine Consulting Provider: [facility] [place] [facility] Reason for consultation: Right ischial tuberosity osteomyelitis 07/06/24 17:18 Consult to Wound Care Routine Reason for consultation: Right ischial tuberosity decubitus Has provider been notified: No DS: Diagnosis Discharge Diagnosis (1) Decubitus ulcer: Status: Acute DS: Summary Hospital Course Hospital Course: from initial hpi: 63-year-old male with a PMH significant for?MS with paraplegia, chronically bed/wheelchair-bound, and hx of coccyx decubitus ulcer w/osteomyelitis who presents to the ED for evaluation of worsening right buttock decubitus ulcer. Sore first began developing 2+ months ago around beginning of May. Came to the ED on 06/05 to evalute for infection where CT of femur was without convincing evidence of bone destruction to suggest osteomyelitis. Was discharged from ED on cephalexin and doxy x7 days. Pt has been to wound care in [place] weekly on Mondays. Decubitus ulcer has continued to worsen with foul-smelling discharge, pain, and redness. Was recently describe a 15 day course of ciprofloxacin set to end today. Has had fever as high at 101 measured at home last night. Also complains of right arm weakness/near paralysis he says often occurs when he has an infection. Denies nausea, vomiting, abdominal pain. No chest pain/pressure, palpitations. Denies shortness of breath or difficulty breathing. Of note, pt with hx of coxxyx decubitus ulcer with osteomyelitis requiring surgical intervention and repair, now well-healed. In the ED pt was febrile up to 101.3 with soft BP as low as 92/42. Labs significant for leukocytosis of 11.0, stable normocytic anemia of 10.9/33.3, ESR 97, CRP 28.71, and sodium of 131. Renal and hepatic function WNL. Lactic acid WNL at 1.1. CT of right femur showed significant increase in decubitus ulcer at inferior aspect of right buttock with findings compatible with active osteomyelitis of ischial tuberosity. Pt was treated with vancomycin and Zosyn. Pt will be admitted to the hospital for treatment and further evaluation of acute right ischial tuberosity osteomyelitis. hospital course: Patient was admitted for acute right ischial tuberosity osteomyelitis with decubitus ulcer stage IV. His blood cultures were negative. He underwent debridement on 07/09/2024. He was seen by infectious disease who recommended daptomycin on discharge to be completed 08/16/2024. In hospital was treated with vancomycin. His BMP and CPK should be monitored weekly. Had PICC line placed. We will complete antibiotics at home. wound vac placed. For multiple sclerosis was continued on baclofen and gabapentin. For recurrent UTI as was continued on methenamine. Time Attestation Discharge Coordination Time (in mins): 35 Quality: Safe Use of Opioids Does Pt have an Active Cancer Diagnosis on the Problem List?: No Quality: Stroke Does the patient have a stroke diagnosis?: No Physical Exam Vital Signs: Vital Signs: Last Vital Signs Temp 97.0 F 07/11/24 07:21 Pulse 76 07/11/24 07:21 Resp 16 07/11/24 07:21 BP 106/58 L 07/11/24 07:21 Pulse Ox 94 07/11/24 07:21 O2 Del Method Room Air 07/11/24 07:21 O2 Flow Rate 2 07/09/24 15:10 BMI result Body Mass Index 29.6 Const: Other: well apearing, alert, oriented x3 Resp: Other: normal WOB, no wheezing , rhonchi Cardio: Other: RRR, nl S1 S2 : Other: colostomy bag in tact, no abdominal tenderness on palpation, soft, nondistended Back/Spine/Pelvis: Other: sacral wound dressing intact DS: Data Data Completed and Pending Pending studies at discharge: Pending at discharge 07/09/24 14:50 Surgical [PTH] Routine Labs on day of discharge: Laboratory Results - last 24 hr 07/11/24 05:36 WBC 7.1 RBC 3.58 L Hgb 10.4 L Hct 32.5 L MCV 90.8 MCH 29.1 MCHC 32.0 RDW 13.0 Plt Count 456 H MPV 8.1 L Absolute Nucleated RBC 0.000 Nucleated RBC % (auto) 0.0 Sodium 137 Potassium 4.2 Chloride 101 Carbon Dioxide 30 H Anion Gap 10 L BUN 11 Creatinine 0.73 Estim Creat Clear Calc 131.5 Estimated GFR > 60 Fasting Glucose 110 H Calcium 8.8 Preliminary micro results at discharge 07/06/24 12:07 Blood Culture - Preliminary Blood - Venous No growth after 48 hours. 07/06/24 12:07 Blood Culture - Preliminary Blood - Venous No growth after 48 hours. Discharge Plan Discharge Anticipated Discharge Date/Time: 07/11/24 08:56 Patient Disposition: Home Health Service Discharge Diagnosis: decubitus ulcer, OM Referrals: Ambrocio Tenorio CNP [Primary Care Provider] - 1 Week Elyssa Peters MD [Physician] - 1 Week Yadiel Frank MD [Physician] - 1 Week Alivia Roa MD [Physician] - 1 Week Discharge Medications: New daptomycin 500 mg recon soln 407 mg IV Q24H 42 Days Rx Instructions: administer over 30 mins end nov 15 oxycodone 5 mg Tablet 10 mg PO QID PRN (Reason: Pain, Moderate(Pain Scale 4-6)) Qty: 30 0RF Rx Instructions: Partial Fill upon patient request. morphine [MS Contin] 15 mg tablet extended release 15 mg PO Q12H Qty: 20 0RF Rx Instructions: Partial Fill upon patient request. Continued meloxicam 15 mg tablet 15 mg PO DAILY baclofen 20 mg tablet 20 mg PO QID methenamine hippurate 1 gram tablet 1 g PO BID docusate sodium 100 mg Capsule 100 mg PO BID gabapentin 300 mg capsule 900 mg PO TID nystatin [Nystop] 100,000 unit/gram powder 1 appl topical BID PRN (Reason: Rash) cholecalciferol (vitamin D3) [Vitamin D3] 50 mcg (2,000 unit) Capsule 50 mcg PO DAILY calcium carbonate [Tums] 200 mg calcium (500 mg) Tablet,Chewable 400 mg PO DAILY Discontinued oxycodone-acetaminophen 5-325 mg tablet 1 tab PO QID PRN (Reason: Pain) Discharge Orders: Discharge Order (Routine); Ordered 07/12/24 Ordered By: Cheko Cooper Diet: Advance to usual diet Activity on Discharge: As tolerated Stand Alone Forms: Patient Portal Discharge page Print Language: Burkinan Activity Restrictions/Additional Instructions: Wound VAC in place - okay to change wound VAC in 3-4 days. Okay to use regular foam dressing covered by wound VAC Removed nonadherent dressing from the wound base with wound VAC change Wound VAC setting at standard suction 125 mm Hg He can follow up with the [facility] for wound VAC care as well. Care Plan Goals: recovery Health Concerns: om Plan of Treatment: 6 weeks dapto, end aug 16, 2024, weekly bmp and cpk, Assessment: see above
[2024-07-11] MEDS: Methenamine Hippurate 1 GM TABLET PO ×2 (09:00→21:21)
[2024-07-11] MEDS: Docusate Sodium 100 MG CAPSULE PO ×2 (09:00→21:22)
[2024-07-11] MEDS: Baclofen 20 MG TABLET PO ×4 (09:00→21:22)
[2024-07-11] MEDS: Cholecalciferol (Vitamin D3) 25 MCG TABLET 50 MCG PO (09:00)
[2024-07-11] MEDS: Gabapentin 300 MG CAPSULE 900 MG PO ×3 (09:00→21:21)
[2024-07-11] MEDS: 0.9 % Sodium Chloride Flush 10 ML SYRINGE 5 ML IVFLUSH ×3 (09:00→22:03)
[2024-07-11] MEDS: 0.9 % Sodium Chloride Flush 3 ML SYRINGE IVFLUSH ×3 (09:01→21:28)
--- NOTE | 2024-07-11 09:12 | HO.WOUND ---
Addendum entered by Therese Curry RN 07/11/24 09:47: Updated by Nurse manager pharmaceutical Pt set to stay today with plan for wound vac placement tomorrow 07/12/[address] Frank. This scenario writer will ensure wound vac along with dressing supplies are at bedside for wound vac placement tomorrow. Case zack martell coordinate home vac. Original Note: Wound Consult: Follow up 63yr old male admitted to [facility] on 07/06/24 - See progress notes and H&P for detailed history.? Wound consult follow up for right Ischial wound POA.? Wound was debrided and is followed by general surgery team - Dr. Frank request assessment for wound vac readiness. Wound bed assessed with Neyda ISAAC at bedside. Orders in place for wet to dry dressing, recommend continuing with wet to dry at this time wound bed does not appear ready for wound vac as there remains adherent yellow slough to the base of the wound bed. Will increase dressing to twice daily in effort to increase autolytic debridement. Right Ischium on admission 07/10/24 07/11/24 - Overall improving - not yet ready for wound vac - Dr. Frank will assess for wound vac placement tomorrow if patient remains inpatient. While at bedside patient reported desire to d/c to home as his daughter is available to help him. We discussed benefits of staying to allow for wound vac placement - he reports understanding. We discussed if no vac in place there will be daily dressing changes and he is unsure how that would take place at this time since he reports one of his aides that works 4 days a week for him is currently unavailable as she is also hospitalized at this time. Bee Braga drawstring knotter aware of current concerns with d/c. TT to Dr. Allison staples as well. From Previous assessment : Location: Right Ischium Etiology: ??Stage 4 Pressure Injury Present on Admission Measurements: 6.5cm x 6cm x 4.5cm with undermining noted at 12 o'clock max depth of 6.5cm Wound Bed: red moist tissue with adherent fibrinous yellow slough adherent to wound bed with rough bone exposed in undermining area - providers are aware Edges: Unattached Drainage: serosang, lópez drainage no odor noted Periwound: Mild erythema noted - intact no induration no fluctuance noted Goals of Treatment: ? continue wet to dry dressing. off load pressure re assess in future for wound vac readiness. Sacrum assessed - intact - evidence of previous PI with scar tissue noted - preventative sacral foam applied. Recommendations: 1. Turn and Reposition every 2 hours and as needed for patient comfort.? Use pillows or wedges to support off loading positions. 2. Off Load all bony prominences with use of pillows and heel boots if needed.? Apply Preventative foams where needed. ? 3. Monitor for incontinence and moisture control, use barrier creams when needed for prevention and treatment. 4. Provide adequate and supplemental nutrition.? 5. Order low air loss mattress. 6. When applicable maintain blood glucose levels per Providers order. 7. Right Ischium - Wet to dry dressing twice daily. off load pressure 8. Sacrum - Off Load Pressure - preventative sacral foam recommended. Re-consult wound care Nurse for wound deterioration or wound changes.
--- NOTE | 2024-07-11 09:16 | HO.POSTANES ---
Post Anesthesia Evaluation Post Anesthesia Evaluation Date of Service: 07/09/24 Vital Signs: Vital Signs Temp Pulse Resp BP Pulse Ox O2 Del Method 07/11/24 07:21 97.0 F 76 16 106/58 L 94 Room Air 07/11/24 03:29 97.1 F 73 16 121/63 96 Room Air Anesthesia: General Mental Status: Awake Pain Control: Satisfactory Hydration: Adequate Anesthesia-Related Issues: No Anes. Related Issues
--- NOTE | 2024-07-11 09:26 | HO.PM.IMPN ---
Subjective Subjective Date of Service: 07/11/24 Interval History: Pt reports 7/10 soreness in sacral back. Pt also 5-6/10 groin pain that worsens with movement and spasm. BM and urinating with no concerns. Pt is eating solid foods with no concerns. Some reflux present, pt is not sure when this worsens. Pt is using incentive spirometer about 5 times every hour. No SOB. Constitutional some fatigue due to pain, no fever, no chills Cardiovascular no palpitaions Respiratory no SOB, no cough Gastrointestinal no appetite changes, no N/V Genitourinary no burning, no dysuria Neurologic numbness (hx of MS), some tinglign Physical Exam Vital Signs: Vital Signs: Last Vital Signs Temp 97.0 F 07/11/24 07:21 Pulse 76 07/11/24 07:21 Resp 16 07/11/24 07:21 BP 106/58 L 07/11/24 07:21 Pulse Ox 94 07/11/24 07:21 O2 Del Method Room Air 07/11/24 07:21 O2 Flow Rate 2 07/09/24 15:10 BMI result Body Mass Index 29.6 Objective Data Active Medications Acetaminophen (Acetaminophen 325 Mg Tablet) 650 mg PO Q6H PRN PRN Reason: Pain, Mild (Pain Scale 1-3), fever or headache Last Admin: 07/07/24 15:48 Dose: 650 mg Documented By: SACHA Baclofen (Baclofen 20 Mg Tablet) 20 mg PO QID [facility] Last Admin: 07/11/24 09:00 Dose: 20 mg Documented By: JOVANNY Benzocaine (Throat Lozenge, Medicated Lozenge) 1 lozenge MUCOUS MEM Q2H PRN PRN Reason: Sore Throat Last Admin: 07/10/24 21:15 Dose: 1 lozenge Documented By: CARLTON Benzonatate (Benzonatate 100 Mg Capsule) 100 mg PO TID PRN PRN Reason: Cough Calcium Carbonate (Calcium Carbonate 750 Mg Tab.Chew) 750 mg PO Q4H PRN PRN Reason: Heartburn Docusate Sodium (Docusate Sodium 100 Mg Capsule) 100 mg PO BID [facility] Last Admin: 07/11/24 09:00 Dose: 100 mg Documented By: JOVANNY Enoxaparin Sodium (Enoxaparin Sodium 40 Mg/0.4 Ml Syringe) 40 mg SUBCUT Q24H [facility] Last Admin: 07/10/24 16:04 Dose: 40 mg Documented By: CARLTON Gabapentin (Gabapentin 300 Mg Capsule) 900 mg PO TID [facility] Last Admin: 07/11/24 09:00 Dose: 900 mg Documented By: JOVANNY Vancomycin HCl 1,500 mg/ (Sodium Chloride) 500 mls @ 333.333 mls/hr IV Q12H [facility] Magnesium Hydroxide (Milk Of Magnesia 30 Ml Oral.Susp) 30 ml PO DAILY PRN PRN Reason: Constipation Melatonin (Melatonin 3 Mg Tablet) 6 mg PO BEDTIME PRN PRN Reason: Insomnia Methenamine Hippurate (Methenamine Hippurate 1 Gm Tablet) 1 gm PO BID [facility] Last Admin: 07/11/24 09:00 Dose: 1 gm Documented By: JOVANNY Morphine Sulfate (Morphine Sulfate 4 Mg/Ml Cartridge) 4 mg IVPUSH Q4H PRN; Protocol PRN Reason: Pain, Severe (Pain Scale 7-10) Last Admin: 07/11/24 08:57 Dose: 4 mg Documented By: JOVANNY Naloxone HCl (Naloxone Hcl 0.4 Mg/Ml Vial) 0.04 mg IVPUSH Q5M PRN PRN Reason: Excessive sedation or RR < 8 Nystatin (Nystatin Powder 15 Gm Bottle) 1 appl TOPICAL BID PRN; Protocol PRN Reason: Rash Ondansetron HCl (Ondansetron Hcl 4 Mg/2 Ml Vial) 4 mg IVPUSH Q8H PRN PRN Reason: Nausea and Vomiting Oxycodone HCl (Oxycodone Hcl Immed Release 5 Mg Tablet) 10 mg PO QID PRN PRN Reason: Pain, Moderate(Pain Scale 4-6) Last Admin: 07/11/24 05:48 Dose: 10 mg Documented By: CARLTON Pharmacy Consult (Consult Rx Vancomycin Dosing) 1 each MISCELLANE DAILY PRN PRN Reason: Consult order Psyllium Hydrophilic Mucilloid (Psyllium Seed 3.7 Gm Packet) 3.7 gm PO DAILY [facility] Sodium Chloride (0.9 % Sodium Chloride Flush 3 Ml Syringe) 3 ml IVFLUSH QSHIFT [facility] Last Admin: 07/11/24 09:01 Dose: 3 ml Documented By: JOVANNY Sodium Chloride (0.9 % Sodium Chloride Flush 10 Ml Syringe) 5 ml IVFLUSH TID [facility] Last Admin: 07/11/24 09:00 Dose: 5 ml Documented By: JOVANNY Vitamin D (Cholecalciferol (Vitamin D3) 25 Mcg Tablet) 50 mcg PO DAILY [facility] Last Admin: 07/11/24 09:00 Dose: 50 mcg Documented By: JOVANNY Labs 07/11/24 05:36 07/11/24 05:36 Labs: Laboratory Results - last 24 hr 07/11/24 05:36 MCV 90.8 MCH 29.1 MCHC 32.0 RDW 13.0 Plt Count 456 H MPV 8.1 L Absolute Nucleated RBC 0.000 Nucleated RBC % (auto) 0.0 Anion Gap 10 L Estim Creat Clear Calc 131.5 Estimated GFR > 60 Fasting Glucose 110 H Calcium 8.8 Assessment and Plan (1) Decubitus ulcer: Status: Acute (2) Sacral decubitus ulcer, stage IV: Status: Acute (3) Osteomyelitis: Status: Acute Plan 63M PMH MS with paraplegia, chronically bed/wheelchair-bound, and hx of coccyx decubitus ulcer w/osteomyelitis who presented to the ED for evaluation of worsening right buttock decubitus ulcer. 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 Blood cultures negative s/p debridement 07/09/24 ID rec Daptomycin on Discharge end 08/16/24 Continue Vancomycin for now 07/06, PICC line placed Air loss mattress, repositioning q2hr weekly bmp cpk eventual wound vac Hypotension resolved acute Hyponatremia resolved MS Continue baclofen, gabapentin Recurrent UTIs Continue methenamine NEgative UA Full Code DVT Prophylaxis: Lovenox reason for continued hospitalization: dispo planning Quality Stroke Does the patient have a stroke diagnosis?: No VTE Prior VTE?: No VTE Risk Level:: Medical - moderate - high VTE Device Contraindication: Treatment Not Indicated VTE Drug Contraindication: N/A - Med Ordered
--- NOTE | 2024-07-11 09:40 | MHC.CM.PN ---
Addendum entered by Milagros Boyle RN 07/11/24 14:54: Wound vac orders faxed to [facility]. Per Juarez to be delivered as early as tonight, potentially tomorrow morning. Original Note: CM spoke w/ patient, daughter, [facility] and C[facility] re: dc plan. Plan for patient to dc home tomorrow w/ wound vac in place. Patient will receive dose of IV dapto prior to dc. Daughter requesting 2pm administration. Daughter will be away for the day Friday 07/13. Louise [facility] has scheduled an RN to administer this dose. One of patient's primary APRON CLEANER's is currently hospitalized, but daughter is coordinating w/ agency for replacement who will be available tomorrow. Patient will also f/u w/ [facility] wound clinic and has appt scheduled for 07/19. CM will continue to follow.
[2024-07-11] MEDS: Psyllium seed 3.7 GM PACKET PO (10:47)
[2024-07-11] MEDS: vancomycin HCL 1,500 MG in 0.9 % Sodium Chloride 500 ML 333.33 MG IV ×2 (12:22→23:23)
[2024-07-11 12:41] LABS: Vancomycin Random 11.1 mcg/mL (15-20)
[2024-07-11 15:41] VITALS: BP 109/57; PULSE 81; RESP 16; TEMP 36; O2SAT 94
[2024-07-11] MEDS: Enoxaparin Sodium 40 MG/0.4 ML SYRINGE SUBCUT (16:12)
[2024-07-11 19:54] VITALS: BP 122/63; PULSE 84; RESP 16; TEMP 37.4; O2SAT 95
--- NOTE | 2024-07-11 21:30 | PC.NURSE ---
Late entry: This RN assumed care at 1900, Upon initial assessment, Pt is AOx4, reporting 7/10 throbbing/spasms to legs and back. Meds given per MAR for pain. Lung sounds clear, respirations even and non-labored. Chronic ontiveros draining light yellow urine. LLQ Ostomy output very small amount of stool, BSx4. R thigh decubitis ulcer dressing changed, wet to dry dsg applied, CDI. At home wound vac is in the room for discharge home. Pt calm and cooperative, with no apparent distress, VSS, call morales within reach.
[2024-07-12 03:24] VITALS: BP 135/70; PULSE 70; RESP 16; TEMP 36.1; O2SAT 96
[2024-07-12] MEDS: Morphine Sulfate 4 MG/ML CARTRIDGE IVPUSH ×3 (03:26→14:10)
[2024-07-12 06:46] LABS: Creatinine Clr Calc Pharmacy 129.7; Estimated Glomerular Filt Rate > 60
[2024-07-12 07:32] VITALS: BP 122/69; PULSE 69; RESP 18; TEMP 36.1; O2SAT 94
--- NOTE | 2024-07-12 08:04 | HO.STUDENTPN ---
Subjective Subjective Date of Service: 07/12/24 [facility] Last Filed: 07/12/24 09:20> 07/12/24 <Yadiel Frank MD - Last Filed: 07/12/24 14:18> Interval History: Pt reports feeling the same as yesterday. Pt reports pain as 7/10 in ulcer site with soreness and pins and needles in back at times. . 6/10 pain on groin area. Pt is continuing to use incentive spirometer. <[facility] - Last Filed: 07/12/24 09:20> Constitutional no fever, no chills, some fatigue <[facility] - Last Filed: 07/12/24 09:20> Cardiovascular no palpitatoins <[facility] - Last Filed: 07/12/24 09:20> Respiratory no SOB, no cough <Anitha mad - Last Filed: 07/12/24 09:20> Gastrointestinal no N/V, no changes in appetitie <[facility] - Last Filed: 07/12/24 09:20> Genitourinary no dysuria, no burning <[facility] - Last Filed: 07/12/24 09:20> Integumentary/Breasts no rashes <[facility] - Last Filed: 07/12/24 09:20> Physical Exam Vital Signs: Vital Signs: Last Vital Signs Temp 96.9 F 07/12/24 07:32 Pulse 69 07/12/24 07:32 Resp 18 07/12/24 07:32 BP 122/69 07/12/24 07:32 Pulse Ox 94 07/12/24 07:32 O2 Del Method Room Air 07/12/24 07:32 O2 Flow Rate 2 07/09/24 15:10 BMI result Body Mass Index 29.6 [facility] Last Filed: 07/12/24 09:20> Const: Other: well appearing, alert <[facility] - Last Filed: 07/12/24 09:20> Resp: Other: normal respiratory effort, no wheezing <[facility] - Last Filed: 07/12/24 09:20> Cardio: Other: RRR, nl S1 and S2 <Anitha mad - Last Filed: 07/12/24 09:20> GI: Other: no tenderness on palpation, soft, nondistended, colostomy bag intact <[facility] Last Filed: 07/12/24 09:20> : Other: folley cather in place <[facility] Last Filed: 07/12/24 09:20> Back/Spine/Pelvis: Other: ulcer dressing intact <[facility] Last Filed: 07/12/24 09:20> Neuro: Other: alert and oriented x3 <[facility] Last Filed: 07/12/24 09:20> Objective Data Active Medications Acetaminophen (Acetaminophen 325 Mg Tablet) 650 mg PO Q6H PRN PRN Reason: Pain, Mild (Pain Scale 1-3), fever or headache Last Admin: 07/07/24 15:48 Dose: 650 mg Documented By: SACHA Baclofen (Baclofen 20 Mg Tablet) 20 mg PO QID [facility] Last Admin: 07/11/24 21:22 Dose: 20 mg Documented By: JAKY Benzocaine (Throat Lozenge, Medicated Lozenge) 1 lozenge MUCOUS MEM Q2H PRN PRN Reason: Sore Throat Last Admin: 07/10/24 21:15 Dose: 1 lozenge Documented By: CARLTON Benzonatate (Benzonatate 100 Mg Capsule) 100 mg PO TID PRN PRN Reason: Cough Calcium Carbonate (Calcium Carbonate 750 Mg Tab.Chew) 750 mg PO Q4H PRN PRN Reason: Heartburn Docusate Sodium (Docusate Sodium 100 Mg Capsule) 100 mg PO BID [facility] Last Admin: 07/11/24 21:22 Dose: 100 mg Documented By: JAKY Enoxaparin Sodium (Enoxaparin Sodium 40 Mg/0.4 Ml Syringe) 40 mg SUBCUT Q24H [facility] Last Admin: 07/11/24 16:12 Dose: 40 mg Documented By: JOVANNY Gabapentin (Gabapentin 300 Mg Capsule) 900 mg PO TID [facility] Last Admin: 07/11/24 21:21 Dose: 900 mg Documented By: JAKY Vancomycin HCl 1,500 mg/ (Sodium Chloride) 500 mls @ 333.333 mls/hr IV Q12H [facility] Last Infusion: 07/12/24 00:55 Dose: Infused Documented By: JAKY Magnesium Hydroxide (Milk Of Magnesia 30 Ml Oral.Susp) 30 ml PO DAILY PRN PRN Reason: Constipation Melatonin (Melatonin 3 Mg Tablet) 6 mg PO BEDTIME PRN PRN Reason: Insomnia Methenamine Hippurate (Methenamine Hippurate 1 Gm Tablet) 1 gm PO BID [facility] Last Admin: 07/11/24 21:21 Dose: 1 gm Documented By: JAKY Morphine Sulfate (Morphine Sulfate 4 Mg/Ml Cartridge) 4 mg IVPUSH Q4H PRN; Protocol PRN Reason: Pain, Severe (Pain Scale 7-10) Last Admin: 07/12/24 03:26 Dose: 4 mg Documented By: JAKY Naloxone HCl (Naloxone Hcl 0.4 Mg/Ml Vial) 0.04 mg IVPUSH Q5M PRN PRN Reason: Excessive sedation or RR < 8 Nystatin (Nystatin Powder 15 Gm Bottle) 1 appl TOPICAL BID PRN; Protocol PRN Reason: Rash Ondansetron HCl (Ondansetron Hcl 4 Mg/2 Ml Vial) 4 mg IVPUSH Q8H PRN PRN Reason: Nausea and Vomiting Oxycodone HCl (Oxycodone Hcl Immed Release 5 Mg Tablet) 10 mg PO QID PRN PRN Reason: Pain, Moderate(Pain Scale 4-6) Last Admin: 07/11/24 05:48 Dose: 10 mg Documented By: CARLTON Pharmacy Consult (Consult Rx Vancomycin Dosing) 1 each MISCELLANE DAILY PRN PRN Reason: Consult order Psyllium Hydrophilic Mucilloid (Psyllium Seed 3.7 Gm Packet) 3.7 gm PO DAILY [facility] Last Admin: 07/11/24 10:47 Dose: 3.7 gm Documented By: JOVANNY Sodium Chloride (0.9 % Sodium Chloride Flush 3 Ml Syringe) 3 ml IVFLUSH QSHIFT [facility] Last Admin: 07/11/24 21:28 Dose: 3 ml Documented By: JAKY Sodium Chloride (0.9 % Sodium Chloride Flush 10 Ml Syringe) 5 ml IVFLUSH TID [facility] Last Admin: 07/11/24 22:03 Dose: 5 ml Documented By: JAKY Vitamin D (Cholecalciferol (Vitamin D3) 25 Mcg Tablet) 50 mcg PO DAILY [facility] Last Admin: 07/11/24 09:00 Dose: 50 mcg Documented By: JOVANNY <Anitha Ahmad - Last Filed: 07/12/24 09:20> Labs CBC & Chem 7: 07/11/24 05:36 07/12/24 06:04 <Anitha Ahmad - Last Filed: 07/12/24 09:20> Labs: Laboratory Results - last 24 hr 07/11/24 07/12/24 12:17 06:04 Hold Purple Top SEE NOTE Estim Creat Clear Calc 129.7 Estimated GFR > 60 Random Vancomycin 11.1 L <Anitha Ahmad - Last Filed: 07/12/24 09:20> Microbiology Microbiology Results: Microbiology 07/06/24 12:07 Blood Culture - Final Blood - Venous No growth after 5 days. 07/06/24 12:07 Blood Culture - Final Blood - Venous No growth after 5 days. <Anitha Ahmad - Last Filed: 07/12/24 09:20> Assessment and Plan (1) Decubitus ulcer: Status: Acute <Anitha Ahmad - Last Filed: 07/12/24 09:20> Assessment and Plan: ?63 yr old male 3 day post op excisional debridement decubitus ulcer on the sacrum and buttock.? Pt is having same discomfort as yeseterday, no changes, continue with pain management. Continue wet to dry packing. ? Pt was seen yesterday and was not ready for wound vac. Plan for wound vac today. <Anitha Ahmad - Last Filed: 07/12/24 09:20> Assessment and Plan: Wound examined - appears clean, good healthy granulation Wound VAC applied; sliver of adherent placed on top of small exposed area of bone No leak from the wound VAC Patient to be discharged - wound VAC change in probably 3-4 days Pain management Bedside precautions Discussed with daughter as well - wound care nurse arranged <Yadiel Frank MD - Last Filed: 07/12/24 14:18> Quality Stroke Does the patient have a stroke diagnosis?: No <Anitha Ahmad - Last Filed: 07/12/24 09:20> VTE Prior VTE?: No <Anitha Ahmad - Last Filed: 07/12/24 09:20> VTE Risk Level:: Medical - moderate - high <Anitha Ahmad - Last Filed: 07/12/24 09:20> VTE Device Contraindication: Treatment Not Indicated <Anitha Ahmad - Last Filed: 07/12/24 09:20> VTE Drug Contraindication: N/A - Med Ordered <Anitha Ahmad - Last Filed: 07/12/24 09:20>
[2024-07-12] MEDS: Gabapentin 300 MG CAPSULE 900 MG PO ×2 (08:54→14:10)
[2024-07-12] MEDS: Baclofen 20 MG TABLET PO ×2 (08:54→12:30)
[2024-07-12] MEDS: 0.9 % Sodium Chloride Flush 10 ML SYRINGE 5 ML IVFLUSH ×2 (08:54→15:26)
[2024-07-12] MEDS: Methenamine Hippurate 1 GM TABLET PO (08:54)
[2024-07-12] MEDS: Psyllium seed 3.7 GM PACKET PO (08:54)
[2024-07-12] MEDS: Docusate Sodium 100 MG CAPSULE PO (08:54)
[2024-07-12] MEDS: Cholecalciferol (Vitamin D3) 25 MCG TABLET 50 MCG PO (08:54)
[2024-07-12] MEDS: 0.9 % Sodium Chloride Flush 3 ML SYRINGE IVFLUSH (08:55)
[2024-07-12] MEDS: oxyCODONE HCl Immed Release 5 MG TABLET 10 MG PO (09:08)
--- NOTE | 2024-07-12 12:07 | MHC.CM.PN ---
Per MD patient medically cleared for dc. [facility] RN at bedside w/ daughter. Teach complete. Wound Vac to be placed prior to dc. Will receive IV dapto @ 2pm, prior to dc. Caretenders aware of all updates and dc today. Will see patient tomorrow to administer first dose of abx at home. BLS transport scheduled for 3:30pm. Daughter aware and reports [employer] will be at the house waiting for patient. IMM delivered.
[2024-07-12] MEDS: DAPTOmycin 400 MG in 0.9 % Sodium Chloride 50 ML 99.76 MG IV (15:25)
== END 2024-07-12 16:22 | disposition home health service (06) | DRG 580 ==
LOC: HO.ED 11:57 → HO.EDOVER 14:35 → HO.S3 17:41
PROVIDERS: Student in an Organized Health Care Education/Training Program; Surgery; Admitting Provider Student in an Organized Health Care Education/Training Program; Emergency Provider Internal Medicine; PCP Nurse Practitioner Family; Visit Provider Internal Medicine
PROC: 0KBN0ZZ Excision of Right Hip Muscle, Open Approach (ICD-10-PCS; principal; 2024-07-09 14:30)
DX: L89.314 Pressure ulcer of right buttock, stage 4 (principal); E87.1 Hypo-osmolality and hyponatremia; G82.20 Paraplegia, unspecified; M86.18 Other acute osteomyelitis, other site; I95.9 Hypotension, unspecified; G35 Multiple sclerosis; Z23 Encounter for immunization; Z20.822 Contact with and (suspected) exposure to COVID-19; Z87.440 Personal history of urinary (tract) infections; Z79.2 Long term (current) use of antibiotics; Z74.01 Bed confinement status; Z79.891 Long term (current) use of opiate analgesic; Z79.899 Other long term (current) drug therapy
CPT/HCPCS: 36415; 36573; 73701; 80048; 80053; 80202; 81001; 82565; 83605; 85025; 85027; 85610; 85652; 86140; 87040; 87635; 88304; 90656; 99285; C1751; C1758; J0878; J1650; J2003; J2270; J2543; J2704; J2795; J3010; J3370; J3371; J7120; Q9967

== ENCOUNTER → 2024-07-06 14:16 | Outpatient (BNV) | payer MEDICARE, MEDICAID, SELFPAY | PROVIDERS: Admitting Provider Student in an Organized Health Care Education/Training Program; Emergency Provider Internal Medicine; PCP Nurse Practitioner Family; Visit Provider Internal Medicine | DX: L89.90 Pressure ulcer of unspecified site, unspecified stage (principal); L89.154 Pressure ulcer of sacral region, stage 4 | CPT/HCPCS: 99222 ==

== ENCOUNTER → 2024-07-06 14:16 | Outpatient (BNV) | payer MEDICARE, MEDICAID, SELFPAY | PROVIDERS: Admitting Provider Student in an Organized Health Care Education/Training Program; Emergency Provider Internal Medicine; Visit Provider Surgery | DX: L89.310 Pressure ulcer of right buttock, unstageable (principal) | CPT/HCPCS: 11043; 11046; 99222; 99232; 99429; 99499 ==

== ENCOUNTER → 2024-07-06 14:16 | Outpatient (BNV) | payer MEDICARE, MEDICAID, SELFPAY | PROVIDERS: Admitting Provider Student in an Organized Health Care Education/Training Program; Emergency Provider Internal Medicine; Visit Provider Student in an Organized Health Care Education/Training Program | DX: L89.154 Pressure ulcer of sacral region, stage 4 (principal) | CPT/HCPCS: 99223; 99231; 99232; 99239 ==

== ENCOUNTER 2024-07-31 11:28 | Outpatient (AMB) | payer MEDICARE, MEDICAID, SELFPAY ==
--- NOTE | 2024-07-31 11:29 | A.OFFVIS_ITS ---
Vital Signs 3 07/31/24 11:41 Pulse 73 Pulse Source Pulse Oximeter Temp 97.7 F Temp Source Oral Pulse Oximetry (%) 100 Oxygen Delivery Method Room Air Intake Visit Reasons: [facility] reff ulcer Allergies No Known Allergies Allergy (Verified 07/31/24 11:41) [facility] reff ulcer: Details: He has been seeing Wound Clinic. He is tolerating Daptomycin. He is here with daughter PFSH Medical History Osteomyelitis Sacral decubitus ulcer Multiple sclerosis Social History Household Members: None Household Members Other:: Daughter lives upstairs in seperate apartment Housing: Apartment Do you presently have visiting nurse or other home services: Yes Patient Tobacco Use Status: Never used Tobacco Advance Directives Date on File: 04/09/23 service: No Review of Systems Const All systems reviewed & are unremarkable except as noted in HPI and below Physical Exam Vital Signs: Last Vital Signs Temp 97.7 F 07/31/24 11:41 Pulse 73 07/31/24 11:41 Pulse Ox 100 07/31/24 11:41 Oxygen Delivery Method Room Air 07/31/24 11:41 Const Other: General: cooperative Orientation/consciousness: patient oriented x3 HEENT Head: Yes normal to inspection Mouth: Normal oral and palatal mucosa present Eyes General: appearance normal, both eyes and all related structures Pupils: Equal, round and reactive pupils present Resp Effort & Inspection: normal respiratory effort Cardio Rate: regular rate Rhythm: regular rhythm GI Palpation (GI): Soft to palpation and nontender General: Yes no CVA tenderness Back/Spine/Pelvis Back: no CVA tenderness Skin General skin exam: no rashes or lesions noted Neuro General: patient oriented x3 Cranial nerves: Yes CN's II-XII intact bilaterally and Yes Equal, round and reactive pupils present Extrem General: Yes normal to inspection Psych Appearance: grossly normal Assessment & Plan Assessment & Plan (1) Decubitus ulcer: Comment: Continues to follow with Wound Clinic in [place] Code(s): L89.90 - Pressure ulcer of unspecified site, unspecified stage Category: Medical Plan: See back in a month Finish antibiotics as scheduled. Po Doxycycline for a month. Orders: Orders 2 IR cvc remove any age Today L89.90 - Pressure ulcer of unspecified site, unspecified stage Medications: New 2 doxycycline hyclate 100 mg PO BID 60 caps 0RF 30 days Discontinued 2 morphine ER (MS Contin) Partial Fill upon patient request. Discontinued Reason: Patient no longer taking 15 mg PO Q12H 20 tabs 0RF Coding Level of Care Code Est Pt Level 3 (38335) Diagnoses Decubitus ulcer L89.90
[2024-07-31 11:41] VITALS: PULSE 73; TEMP 36.5; O2SAT 100
== END 2024-07-31 11:52 | disposition home or self-care (01) ==
LOC: HO.HID 11:28
PROVIDERS: PCP Nurse Practitioner Family; Visit Provider Internal Medicine
DX: L89.90 Pressure ulcer of unspecified site, unspecified stage (principal)
CPT/HCPCS: 99213

== ENCOUNTER → 2024-07-31 11:28 | Outpatient (BNVA) | payer MEDICARE, MEDICAID, SELFPAY | PROVIDERS: PCP Nurse Practitioner Family; Visit Provider Internal Medicine | DX: L89.899 Pressure ulcer of other site, unspecified stage (principal) | CPT/HCPCS: 99212 ==

== ENCOUNTER 2024-08-28 15:45 | Outpatient (AMB) | payer MEDICARE, MEDICAID, SELFPAY ==
--- NOTE | 2024-08-30 00:09 | MHC.OFFVIS ---
Intake Visit Reasons: f/u 1 mth. Allergies No Known Allergies Allergy (Verified 07/31/24 11:41) HPI HPI f/u 1 mth.: Details: He has said he has area healing up He has taken Doxycycline 07/31. He has not gone to Plastic surgery. [facility] Medical History Osteomyelitis Sacral decubitus ulcer Multiple sclerosis Social History Household Members: None Household Members Other:: Daughter lives upstairs in seperate apartment Housing: Apartment Do you presently have visiting nurse or other home services: Yes Patient Tobacco Use Status: Never used Tobacco Advance Directives Date on File: 04/09/23 service: No Review of Systems Const All systems reviewed & are unremarkable except as noted in HPI and below Assessment & Plan Assessment & Plan (1) Decubitus ulcer: Comment: Continues to follow with Wound Clinic in [place] Code(s): L89.90 - Pressure ulcer of unspecified site, unspecified stage Category: Medical Plan: No further antibiotics at this time. There shouldnt be any further senior living IV antibiotics either if wound doesnt close. (2) Osteomyelitis: Code(s): M86.9 - Osteomyelitis, unspecified Category: Medical Plan: n/a Coding Level of Care Code Tele New Pt Level 3 (10933) Diagnoses Decubitus ulcer L89.90 Osteomyelitis M86.9
== END 2024-08-28 15:50 | disposition home or self-care (01) ==
LOC: HO.HID 15:45
PROVIDERS: PCP Nurse Practitioner Family; Visit Provider Internal Medicine
DX: L89.90 Pressure ulcer of unspecified site, unspecified stage (principal); M86.9 Osteomyelitis, unspecified
CPT/HCPCS: 99213

== ENCOUNTER → 2024-08-28 15:45 | Outpatient (BNVA) | payer MEDICARE, MEDICAID, SELFPAY | PROVIDERS: PCP Nurse Practitioner Family; Visit Provider Internal Medicine | DX: M86.9 Osteomyelitis, unspecified (principal); L89.90 Pressure ulcer of unspecified site, unspecified stage | CPT/HCPCS: 99212 ==

== ENCOUNTER 2024-10-09 15:45 | Outpatient (AMB) | payer MEDICARE, MEDICAID, SELFPAY ==
--- OUTSIDE RECORDS SUMMARY | 2024-10-09 15:47 | XMS_ITS ---
Author Name [facility] Organization Unknown History of Medication Use Medication Directions Dispensed Refills Start Date End Date Stat us amoxicillin-clavulanate (AUGMENTIN) 875-125 MG per tablet Take 1 tablet by mouth every 12 (twelve) hours. 05/01/2024 active baclofen (LIORESAL) 20 MG tablet Take 1 tablet (20 mg total) by mouth 3 (three) times a day. 05/01/2024 active polyethylene glycol (MIRALAX) 17 g packet Take 17 g by mouth. 05/01/2024 active docusate calcium (SURFAK) 240 MG capsule Take 100 mg by mouth. 05/01/2024 active gabapentin (NEURONTIN) 300 MG capsule Take 1 capsule (300 mg total) by mouth 3 (three) times a day. 05/01/2024 active Cholecalciferol 50 MCG (2000 UT) CAPS Take 1 capsule by mouth daily. 05/01/2024 active cefuroxime (CEFTIN) 250 MG tablet Take 1 tablet (250 mg total) by mouth 2 (two) times a day. 05/01/2024 active psyllium (METAMUCIL) 58.6 % packet Take 1 packet by mouth daily. 05/01/2024 active Problems Problem Status Onset Date Problem Type Date of Resoluti on Source Multiple sclerosis (HCC) active EncounterDiagnosisAct CTTHNE MG
--- NOTE | 2024-10-09 17:14 | A.OFFVIS_ITS ---
Intake Visit Reasons: reff [facility] new ulcer Allergies No Known Allergies Allergy (Verified 07/31/24 11:41) HPI HPI reff [facility] new ulcer: Details: This is televist. He has right decub. I saw ELLIE notes THere is concern over new Pseudomonas He had Pseudomonas in urine sensitive to quinolones in past. They gave Dakin solution. [facility] Medical History Osteomyelitis Sacral decubitus ulcer Multiple sclerosis Social History Household Members: None Household Members Other:: Daughter lives upstairs in seperate apartment Housing: Apartment Do you presently have visiting nurse or other home services: Yes Patient Tobacco Use Status: Never used Tobacco Advance Directives Date on File: 04/09/23 service: No Review of Systems Const All systems reviewed & are unremarkable except as noted in HPI and below Assessment & Plan Assessment & Plan (1) Decubitus ulcer: Comment: Continues to follow with Wound Clinic in [place] Code(s): L89.90 - Pressure ulcer of unspecified site, unspecified stage Category: Medical Plan: If worse po Levaquin,daughter will let us know. If fever chills or worse drainage come to ER. Coding Level of Care Code Tele New Pt Level 3 (29828) Diagnoses Decubitus ulcer L89.90
== END 2024-10-09 15:46 | disposition home or self-care (01) ==
LOC: HO.HID 15:45
PROVIDERS: PCP Nurse Practitioner Family; Visit Provider Internal Medicine
DX: L89.90 Pressure ulcer of unspecified site, unspecified stage (principal)
CPT/HCPCS: 99213

== ENCOUNTER → 2024-10-09 15:45 | Outpatient (BNVA) | payer MEDICARE, MEDICAID, SELFPAY | PROVIDERS: PCP Nurse Practitioner Family; Visit Provider Internal Medicine | DX: L89.90 Pressure ulcer of unspecified site, unspecified stage (principal) | CPT/HCPCS: 99212 ==

== ENCOUNTER 2025-09-03 15:14 | Emergency (ER) | payer MEDICARE, MEDICAID, SELFPAY ==
--- NOTE | 2025-09-03 15:47 | ED.GENADULT ---
HPI - General Adult General Chief complaint: Urogenital-Male Stated complaint: RN not able to change cath, pain 05/11 per ems Time Seen by Provider: 09/03/25 15:28 Source: patient Mode of arrival: ambulatory Limitations: no limitations History of Present Illness ED Provider: DR. Mireles HPI narrative: a 65-year-old male history of MS with paraplegia, bed/ wheelchair bound, chronic indwelling Loco catheter, hypospadias, brought in by EMS after visiting nurse were not able to change his Loco catheter. Patient is not taking any blood thinner. Related Data Home Medications ?Medication ?Instructions ?Recorded ?Confirmed baclofen 20 mg tablet 20 mg PO QID 04/09/23 07/06/24 calcium carbonate (Tums) 400 mg PO DAILY 04/09/23 07/06/24 cholecalciferol (vitamin D3) 50 50 mcg PO DAILY 04/09/23 07/06/24 mcg (2,000 unit) capsule (Vitamin D3) docusate sodium 100 mg capsule 100 mg PO BID 04/09/23 07/06/24 gabapentin 300 mg capsule 900 mg PO TID 04/09/23 07/06/24 meloxicam 15 mg tablet 15 mg PO DAILY 04/09/23 07/06/24 methenamine hippurate 1 gram tablet 1 g PO BID 04/09/23 07/06/24 nystatin 100,000 unit/gram topical 1 appl topical BID PRN Rash 04/09/23 07/06/24 powder (Nystop) Previous Rx's ?Medication ?Instructions ?Recorded daptomycin 500 mg intravenous 407 mg IV Q24H 6 weeks 07/11/24 solution oxycodone 5 mg tablet 10 mg (2 x 5 mg) PO QID PRN Pain, 07/12/24 Moderate(Pain Scale 4-6) #30 tabs doxycycline hyclate 100 mg capsule 100 mg PO BID 30 days #60 caps 07/31/24 Allergies Allergy/AdvReac Type Severity Reaction Status Date / Time No Known Allergies Allergy Verified 09/03/25 15:52 Review of Systems Review of Systems: All other systems are reviewed and are negative Constitutional: Reports as per HPI and Reports no additional constitutional complaints Eyes: Reports as per HPI and Reports no additional eye complaints Reports system reviewed and no additional complaints, except as documented Cardiovascular: Reports as per HPI and Reports no additional cardiovascular complaints Respiratory: Reports as per HPI and Reports no additional respiratory complaints Gastrointestinal: Reports as per HPI and Reports no additional gastrointestinal complaints Genitourinary: Reports no additional female genitourinary complaints Musculoskeletal: Reports no additional musculoskeletal complaints Skin/Breast: Reports system reviewed and no additional complaints, except as docu Psychiatric: Reports no additional psychiatric complaints Endocrine: Reports no additional endocrine complaints Hematologic/Lymphatic: Reports no additional hematologic/lymphatic complaints Allergic/Immunologic: Reports no additional allergic/immunologic complaints Reports system reviewed and no additional complaints, except as documented and Reports Abnormal speech present [facility] Past Medical History Medical History Osteomyelitis Sacral decubitus ulcer Multiple sclerosis Social History Social History Household Members: None Household Members Other:: Daughter lives upstairs in seperate apartment Housing: Apartment Do you presently have visiting nurse or other home services: Yes Patient Tobacco Use Status: Never used Tobacco Advance Directives Date on File: 04/09/23 service: No Physical Exam ED Vital Signs: Vital Signs - 24 hr 09/03/25 15:50 09/03/25 16:00 Temperature 98.1 F Pulse Rate 76 Respiratory Rate 18 Blood Pressure 140/80 H 140/80 H Pulse Oximetry 97 Oxygen Delivery Method Room Air BMI result Body Mass Index 29.0 Vital signs have been reviewed and appear to be correct. Blood pressure elevated. Heart rate normal. Respiratory rate normal. Temperature normal. Oxygen saturation normal. Appearance: Alert. Oriented X3. No acute distress. Head: Normal external exam. Normocephalic. Atraumatic. No Viveros signs noted. No raccoon eyes noted Eyes: PERRLA. EOMI. Conjunctiva and sclera normal. Eyelids normal. ENT: TM's Normal. Pharynx normal. Uvula midline. Moist mucous membranes. No trismus noted. No drooling noted. No muffled voice noted. Neck: Normal inspection. Neck supple. FROM. No adenopathy. Thyroid Normal. No meningeal signs. No neck mass noted. CVS: Normal heart rate and rhythm. Heart sound normal. No murmurs noted. Pulses normal throughout. Respiratory: No respiratory distress. Painless inspiration. Breath sounds normal. No wheezes/rales/rhonchi noted. Chest nontender. No accessory muscle usage noted or decreased air movement noted. Abdomen: Soft and nontender. Bowel sounds normal in all 4 quadrants. Suprapubic distention and tenderness, No organomegaly noted. No visible injury noted. : Hypospadias with urethral meatus at the bottom of glans penis, bright red blood and blood clots coming from the urethral meatus. Back: No CVA tenderness. Full range of motion noted. Skin: Skin warm and dry. Normal skin color. Normal skin turgor. No rashes/lesions/lacerations noted. Extremities: No lower extremity edema. Extremities exhibit normal range of motion. Extremities nontender. Neuro: Oriented X 3. Paraplegic. Course Reevaluation(s) Reevaluation #1: 65-year-old male history of paraplegia secondary to MS and chronic indwelling Loco catheter came in after nurse failed to replace his Loco catheter came procedure was slightly complicated with hypospadias penis but were able to pass 16 gauge Maurice Loco catheter. Will check UA. Daughter was concern of a chronic right thigh wound that is been managed by [facility] patient will be starting on doxycycline started today. I examined the wound myself it is about 5 x 5 cm circular wound in the back of the right thigh surrounded by slightly redness but no hotness, no discharge. and patient is not meeting criteria for sepsis patient will be started on doxycycline. Time: 16:31 Medical Decision Making Differential Diagnosis Differential Diagnoses: The differential diagnosis associated with the presentation includes ( Hematuria, urinary retention, UTI.) Admission/Observation Consideration of admission/observation: Escalation of care including admission/observation considered Lab Data MDM Lab Attestation statement: I reviewed the patient's lab results. Labs: Lab Results 09/03/25 Range/Units 16:01 Urine Color [place] A Urine Appearance Clear Urine pH 8.0 (5.0-9.0) Ur Specific [place] <= 1.005 (1.005-1.025) Urine Protein 30 (1+) H (Neg-Trace) mg/dL Urine Glucose (UA) Negative (Negative) mg/dL Urine Ketones Negative (Negative) mg/dL Urine Blood Large (3+) H (Negative) Urine Nitrite Negative (Negative) Ur Leukocyte Esterase Small (1+) H (Negative) Urine RBC >20 H (0-2) /HPF Urine WBC 6-10 H (0-5) /HPF Ur Squamous Epith Cells 0-2 (0-2) /HPF Urine Bacteria None Seen (None Seen) Hyaline Casts 0-2 (0-2) /LPF Discharge Plan Discharge Clinical Impression: Complication of Loco catheter Patient Disposition: Home, Self-Care Instructions: Loco Catheter Placement and Care (ED) Prescriptions: No Action meloxicam 15 mg tablet 15 mg PO DAILY baclofen 20 mg tablet 20 mg PO QID methenamine hippurate 1 gram tablet 1 g PO BID docusate sodium 100 mg Capsule 100 mg PO BID gabapentin 300 mg capsule 900 mg PO TID nystatin [Nystop] 100,000 unit/gram powder 1 appl topical BID PRN (Reason: Rash) cholecalciferol (vitamin D3) [Vitamin D3] 50 mcg (2,000 unit) Capsule 50 mcg PO DAILY calcium carbonate [Tums] 200 mg calcium (500 mg) Tablet,Chewable 400 mg PO DAILY daptomycin 500 mg recon soln 407 mg IV Q24H 42 Days Rx Instructions: administer over 30 mins end nov 15 oxycodone 5 mg Tablet 10 mg PO QID PRN (Reason: Pain, Moderate(Pain Scale 4-6)) Qty: 30 0RF Rx Instructions: Partial Fill upon patient request. doxycycline hyclate 100 mg capsule 100 mg PO BID 30 Days Qty: 60 0RF Print Language: Polish
[2025-09-03 15:50] VITALS: BP 140/80; BP 154/98; PULSE 76; PULSE 82; RESP 18; TEMP 36.7; O2SAT 97; O2SAT 99; BMI 29.0
--- NOTE | 2025-09-03 15:54 | PC.NURSE ---
provider inserted new 16fr 300c ontiveros , immediate output of pale yellow urine, tolerated well
[2025-09-03 16:00] VITALS: BP 140/80
[2025-09-03 16:24] LABS: Appearance Urine Clear; Glucose Urine UA Negative (Negative); PH 8.0 (5.0-9.0); Specific Gravity - Urine <= 1.005 (1.005-1.025); UMIC TRIGGER UACC YES
[2025-09-03 16:25] LABS: UACC Culture Trigger YES
--- OUTSIDE RECORDS SUMMARY | 2025-09-03 19:02 | XMS_ITS | Data Portability ---
Author Organization [facility], Main Office Address [address] [place] [address] [address] [place] [address] Care Team Providers Care Legal Billing Coordinator Name Role Phone ANDRA BOONE - 3RD FLOOR OTHER [phone] SONDRA SALGUERO Primary Care Provider Assessment Encounter Date Assessment Date Assessment LastModified by Organization Details LastModified Time 12/12/2022 12/12/2022 Labs 11/01- wbc 4.4, hb 10.6, hct 34.7, plt 383, na 137, k 4.8, chl 96, co2 35, bun 9, creat 0.4, CRP 70.1, ESR 37 Labs 11/08- wbc 5.6, hb 10.3, hct 31.8, plt 329, na 137, k 4.4, chl 94, co2 35, bun 9, creat 0.5, CRP 106.6, ESR 50 Labs 11/22- 5.1, hb 11.0, hct 36.9, plt 379, na 134, k 4.2, chl 93, co2 36, bun 7, creat 0.5, CRP 52.79, ESR 27 Labs 11/29- wbc 4.7, hb 10.9, hct 34.2, plt 399, na 138, k 4.7, chl 95, co2 34, bun 11, creat 0.5, CRP 71.80, ESR 39 Labs 12/06- wbc 4.8, hb 11.2, hct 35.1, plt 351, na 132, k 4.3, chl 91, co2 32, bun 9, creat 0.5 [email or web address] Not available 12/12/2022 12:38:42 12/19/2022 12/19/2022 Labs 11/08- wbc 5.6, hb 10.3, hct 31.8, plt 329, na 137, k 4.4, chl 94, co2 35, bun 9, creat 0.5, CRP 106.6, ESR 50 Labs 11/22- 5.1, hb 11.0, hct 36.9, plt 379, na 134, k 4.2, chl 93, co2 36, bun 7, creat 0.5, CRP 52.79, ESR 27 Labs 11/29- wbc 4.7, hb 10.9, hct 34.2, plt 399, na 138, k 4.7, chl 95, co2 34, bun 11, creat 0.5, CRP 71.80, ESR 39 Labs 12/06- wbc 4.8, hb 11.2, hct 35.1, plt 351, na 132, k 4.3, chl 91, co2 32, bun 9, creat 0.5 Labs 12/13- wbc 7.9, hb 11.3, hct 36.9, plt 470, na 132, k 4.5, chl 90, co2 33, bun 11, creat 0.5, CRP 116.59, ESR 57 [email or web address] Not available 12/19/2022 12:35:42 12/26/2022 12/26/2022 Labs 12/06- wbc 4.8, hb 11.2, hct 35.1, plt 351, na 132, k 4.3, chl 91, co2 32, bun 9, creat 0.5 Labs 12/13- wbc 7.9, hb 11.3, hct 36.9, plt 470, na 132, k 4.5, chl 90, co2 33, bun 11, creat 0.5, CRP 116.59, ESR 57 Labs 12/20- wbc 5.2, hb 11.1, hct 35.2, plt 411, na 133, k 4.4, chl 90, co2 35, bun 8, creat 0.5, CRP 90.38, ESR 41 [email or web address] Not available 12/26/2022 12:33:12 01/03/2023 01/03/2023 Labs 12/06- wbc 4.8, hb 11.2, hct 35.1, plt 351, na 132, k 4.3, chl 91, co2 32, bun 9, creat 0.5 Labs 12/13- wbc 7.9, hb 11.3, hct 36.9, plt 470, na 132, k 4.5, chl 90, co2 33, bun 11, creat 0.5, CRP 116.59, ESR 57 Labs 12/20- wbc 5.2, hb 11.1, hct 35.2, plt 411, na 133, k 4.4, chl 90, co2 35, bun 8, creat 0.5, CRP 90.38, ESR 41 Labs 12/27- wbc 4.3, hb 11.3, hct 36.7, plt 377, na 134, k 4.3, chl 92, co2 34, bun 6, creat 0.5, CRP 49.01, ESR 41 [email or web address] Not available 01/03/2023 12:40:35 Plan of Treatment Reminders Order Date Submit Date Provider Last Modified By Organization Details Last Modified Time Details Appointments None record ed. Lab None record ed. Referral None record ed. Procedures None record ed. Surgeries None record ed. Imaging None record ed. Medication Orders None record ed. Patient TargetsNo targets recorded. Patient InstructionsNo instructions recorded. Reason for Referral None Reported. Problems Name Problem SNOMED Code Status Onset Date Resolution Date Notes Provider Name and Address Organization Details Recorded Time Pressure injury of sacral region of back 407078939 Active 2022 NABOR Cobos [address] [facility], [address], [place], [address], [facility] [employer] [facility] 3 08:06:29 Neurogenic urinary bladder 862390968 Active 2022 NABOR Cobos [address] , [address], [place], [address], [facility] [employer] [facility] 3 08:06:50 Chronic pain syndrome 075563725 Active 2022 NABOR Cobos [address] [facility], [address], [place], [address], [facility] [employer] [facility] 3 08:07:02 Multiple sclerosis 88399368 Active 2022 NABOR Cobos [address] [facility], [address], [place], [address], [facility] [employer] [facility] 3 08:07:10 Spastic tetraplegia 561691260 Active 2022 NABOR Cobos [address], [address], [place], [address], [facility] 3 08:07:22 Dyslipidemi a 171339094 Active 2022 NABOR Cobos [address], [address], [place], [address], [facility] 3 08:13:25 Gastroesoph ageal reflux disease without esophagitis 331607161 Active 2022 NABOR Cobos [address], [address], [place], [address], [facility] 3 08:13:34 Peripheral neuropathic pain 766261891 Active 2022 NABOR Cobos [address], [address], [place], [address], [facility] 3 08:13:54 Pulmonary embolism 12701853 Active 2022 NABOR Cobos [address], [address], [place], [address], [facility] 3 08:14:06 Osteomyelit is 83464707 Active 2022 NABOR Cobos [address], [address], [place], [address], [facility] 3 08:29:46 Pain of left shoulder joint 4132071816175 9109 Active 2022 REMEDIOS Troy [address], [address], [place], [address], [facility] 3 12:57:20 COVID-19 205906607 Active 2022 REMEDIOS Troy [address], [address], [place], [address], [facility] 3 12:17:11 Problem Notes None recorded. Medical Equipment None Reported. Allergies No known drug allergies Medications Name Sig Start Date Stop Date Status Note LastModified by Organization Details LastModified Time oxycodone 5 mg tablet 10 mg PO daily; and 5-10 mg q 4 hours PRN pain 023 active Not Available Not Available Not Avai lable OxyContin 30 mg tablet,jacek h resistant,e xtended release 1 tab PO BID 023 active Not Available Not Available Not Avai lable OxyContin 20 mg tablet,jacek h resistant,e xtended release 1 tab PO daily in AM 023 active Not Available Not Available Not Avai lable Vitals Date Recorded Heart rate Systolic And Diastolic Provider Name and Address Organization Details Last Updated DateTime 12/12/2022 82 /min 136/82 mm[Hg] REMEDIOS Troy [address], [address], [place], [address], [facility] 12/12/2022 12:36:40 Date Recorded Heart rate Systolic And Diastolic Provider Name and Address Organization Details Last Updated DateTime 12/16/2022 70 /min 120/66 mm[Hg] REMEDIOS Troy [address], [place], [address], [facility] 12/16/2022 13:28:12 Date Recorded Heart rate Systolic And Diastolic Provider Name and Address Organization Details Last Updated DateTime 12/19/2022 74 /min 120/68 mm[Hg] REMEDIOS Troy [address], [address], [place], [address], [facility] 12/19/2022 12:32:42 Date Recorded Heart rate Systolic And Diastolic Provider Name and Address Organization Details Last Updated DateTime 12/26/2022 76 /min 144/84 mm[Hg] REMEDIOS Troy [address], [address], [place], [address], [facility] 12/26/2022 12:28:05 Date Recorded Heart rate Systolic And Diastolic Provider Name and Address Organization Details Last Updated DateTime 01/03/2023 76 /min 138/76 mm[Hg] REMEDIOS Troy [address], [address], [place], [address], [facility] 01/03/2023 12:37:42 Social History Question Answer Notes LastModified by Organizat ion Details LastModified Time Tobacco Smoking Status Former Smoker Antoinette Sulaiman, [employer] [address] [facility], [address], [place], [address], [facility] 10/08/2022 08:06:04 What Was The Date Of Your Most Recent Tobacco Screening? 10/08/2022 [email or web address] Information not available 10/08/2022 Has Tobacco Cessation Counseling Been Provided? No N/a [email or web address] Information not available 10/08/2022 Sex: Unknown Functional Status Question Answer Note LastModified by Organization D etails LastModified Time Do you or have you ever used any other forms of tobacco or nicotine? No [email or web address] Information not available 10/08/2022 What is your level of alcohol consumption? None [email or web address] Information not available 10/08/2022 Mental Status None recorded. Family History Nothing Reported Notes:n/c Medical History No medical history recorded. Immunizations Vaccine Type Date Status Note Provider Nam e and Address Organization Details Recorded Time influenza, unspecified formulation 2 completed Chyaa Michaels [facility] 10/11/2022 13:07:40 influenza, unspecified formulation 1 completed Chaya Michaels [facility] 10/11/2022 13:08:00 influenza, unspecified formulation 0 completed Chaya Michaels [facility] 10/11/2022 13:08:27 SARS-COV-2 (COVID-19) vaccine, UNSPECIFIED 1 completed Chaya Michaels [facility] 10/11/2022 13:08:46 SARS-COV-2 (COVID-19) vaccine, UNSPECIFIED 1 completed Chaya Michaels [facility] 10/11/2022 13:08:58 SARS-COV-2 (COVID-19) vaccine, UNSPECIFIED 1 completed Chaya Michaels [facility] 10/11/2022 13:09:09 pneumococcal polysaccharide PPV23 8 completed Chaya Michaels [facility] 10/11/2022 13:09:44 Pneumococcal conjugate PCV 13 6 completed Chaya Michaels luzmaria, [facility] 10/11/2022 13:16:22 COVID-19, mRNA, LNP-S, bivalent, PF, 30 mcg/0.3 mL dose 2 completed Mila Markus dutta, [facility] 10/09/2023 10:34:48 Influenza, adjuvanted, quadrivalent, PF 4 completed Mila dutta, [facility] 12/14/2023 17:14:16 COVID-19, mRNA, LNP-S, PF, 50 mcg/0.5 mL 4 completed Mila Markus dutta, [facility] 12/14/2023 17:15:29 Past Encounters Encounter ID Performer Location Encounter Start Date Encounter Closed Date Diagnosis/Indication Diagnosis SNOMED-CT Code Diagnosis ICD10 Code Diagnosis IMO Codes Diagnosis Note [id number] NABOR Cobos [address] [place] [address] 10/08/2022 08:01:23 10/13/2022 16:07:14 Pressure injury of sacral region of back 952668898 L89.159 dx with sacral osteomyeli tis with MRSA - E coli sensitive to tetracycli neswound debridemen t x 2, wound vac placeddoxy cycline 100 mg bid x 8 weeksprobi otic bid x 8 weeksf/u with [facility] Chronic pain syndrome 37 9609987 G89.4 pt notes pain worse since he is not able to sit in his power chairstart ed on oxycontin 20 mg q 12 hrswas on percocet 5/325 mg tid prn at homechange d to oxycodone 5 mg q 6 hrs prnwill increase time to oxycodone 5 mg 1 q 4 hrs prn due to increased paintaper down to usual home dose prior to discharget ylenol 975 mg tidcolace 100 mg tidmiralax qdmonitor pain relief, bowels Osteomyelitis 04485895 M 86.9 as above Multiple sclerosis 02960 007 G35 known hx ofno disease modifying treatment at this timebaclof en 20 mg qidlovenox 40 mg qd - assume till pt is back to his baseline of movement, is wheelchair bound at baselinePT OT for conditioni ng and mobility Neurogenic urinary bladder 587722322 N31.9 chronic foleydc summary states unclear why ontiveros had not been converted to suprapubic tubef/u urology prnhiprex 1 gram bid Peripheral neuropathic pain 123870534 M79.2 gabapentin 900 mg tidmonitor for pain relief Spastic tetraplegia 1929 33108 G82.50 meds as above Dyslipidemia 128093283 E 78.5 known hx ofno treatmentf /u with pcp as out pt Gastroesop hageal reflux disease without esophagitis 588003474 K21.9 protonix 40 mg qdmonitor for sxs Pulmonary embolism 99582 003 I26.99 noted in hxnot currently on AC other than lovenox for dvt prophylaxi s [id number] CARRIE TIMMONS MD [facility] [place] [address] [place] [address] 10/11/2022 12:20:19 10/13/2022 16:26:41 Pressure injury of sacral region of back 994208280 L89.159 Large sacral decub with sacral osteomyeli tis by imaging. Continue antibacter ial dresasing and wound vac, wound management consultati on. Continue po doxy for 6-8 weeks. Weekly labs ordered including inflammato ry markers Chronic pain syndrome 37 9362634 G89.4 Longstandi ng pain requiring opiates, currently Oxy ER 20 mg BID and oxy IR 5 mg q4h prn Osteomyelitis 59391146 M 86.9 as above Multiple sclerosis 30244 007 G35 20+ years, sees neuro infrequent ly Neurogenic urinary bladder 730169676 N31.9 Continue Ontiveros, po methenamin e Peripheral neuropathic pain 437903445 M79.2 gabapentin 900 mg tidmonitor for pain relief Spastic tetraplegia 1929 00335 G82.50 meds as above Gastroesop hageal reflux disease without esophagitis 568674868 K21.9 protonix 40 mg qdmonitor for sxs [id number] Janiya Gill, [employer] NURSE-C [facility] [place] [address] [place] [address] 10/14/2022 13:57:24 10/19/2022 17:23:57 Pressure injury of sacral region of back 346713795 L89.159 Wound debrided x 2 and wound vac placed in acute care. Imaging revealed osteo. Cultures grew e.coli - ID recs for 8 week course of doxycyclin e. PT/OT. Follow-up ID. Follow recs. Chronic pain syndrome 37 5964564 G89.4 On oxycontin, oxycodone. PT/OT. Osteomyelitis 99124403 M 86.9 As above. Lovenox for DVT prophylaxi s. Multiple sclerosis 94081 007 G35 Added to hx. On gabapentin , baclofen. PT/OT. Neurogenic urinary bladder 176908277 N31.9 With chronic ontiveros. On methenamin e. Peripheral neuropathic pain 057727376 M79.2 On gabapentin . Spastic tetraplegia 1929 29499 G82.50 As above. Dyslipidemia 266337934 E 78.5 Added to hx. Gastroesop hageal reflux disease without esophagitis 216357608 K21.9 On protonix. Pulmonary embolism 49896 003 I26.99 Added to hx. REMEDIOS Troy [address] [place] [address] [place] [address] 10/18/2022 12:59:11 10/19/2022 19:27:30 Pressure injury of sacral region of back 066290830 L89.159 Wound debrided x 2 and wound vac placed in acute care. Imaging revealed osteo. Cultures grew e.coli - ID recs for 8 week course of doxycyclin e. PT/OT. Follow-up ID. Follow recs. Chronic pain syndrome 37 4156419 G89.4 On oxycontin 20 mg BID, oxycodone. Will increase HS oxycontin to 30 mg. PT/OT. Osteomyelitis 53994140 M 86.9 As above. Lovenox for DVT prophylaxi s. Chronic pain 58863929 G8 9.29 [id number] REMEDIOS Troyphilip [place] [address] [place] [address] [place] [address] 10/21/2022 12:33:12 10/26/2022 16:15:43 Pressure injury of sacral region of back 142333941 L89.159 Wound debrided x 2 and wound vac placed in acute care. Imaging revealed osteo. Cultures grew e.coli - ID recs for 8 week course of doxycyclin e. PT/OT. Follow-up ID. F/U surgery 10/19- recs to cont wound vac; f/u wound clinic - will see if wound clinic f/u can be outpt as nursing here changing wound vac and transporta tion is problemati c. Follow recs. Chronic pain syndrome 37 3276661 G89.4 On oxycontin 20/30 mg BID, oxycodone 5 mg q 4 hours PRN. Pt denies improvemen t in NOC pain with recent increase in oxycontin. Will re-eval next week for need for possible further increase in oxycontin. Will increase oxycodone to 5-10 mg q 4 hours PRN. PT/OT. Osteomyelitis 00570942 M 86.8X8 As above. Lovenox for DVT prophylaxi s. Peripheral neuropathic pain 230875975 M79.2 On gabapentin . [id number] [facility] [address] [facility] [place] [address] 10/24/2022 11:58:36 10/26/2022 16:34:15 Pressure injury of sacral region of back 018266130 L89.159 Wound debrided x 2 in acute care. With wound vac. Imaging revealed osteo. Cultures grew e.coli - ID recs for 8 week course of doxycyclin e. PT/OT. Follow-up ID 10/24- awaiting note. F/U surgery 10/19- recs to cont wound vac. ID f/u Follow recs. Chronic pain syndrome 37 5652183 G89.4 On oxycontin 20/30 mg BID, oxycodone 5-10 mg q 4 hours PRN. Pt declines further increase in meds. PT/OT. Osteomyelitis 66363016 M 86.8X8 As above. Lovenox for DVT prophylaxi s. Multiple sclerosis 97367 007 G35 Added to hx. On gabapentin , baclofen. PT/OT. [id number] REMEDIOS Troy [facility] [place] [address] [facility] [place], [place] [address] 10/26/2022 12:28:37 11/01/2022 15:08:11 Pressure injury of sacral region of back 786295700 L89.159 Wound debrided x 2 in acute care. With wound vac. Imaging revealed osteo. Cultures grew e.coli - ID recs for 8 week course of doxycyclin e (end 11/08). PT/OT. Follow-up ID 10/24- recs to cont wound vac, f/u wound clinic -(will see if they can see him monthly while wound vac is changed here [facility] - however pt cannot go to wound clinic in [facility] as they don't have celina lift). F/U surgery 10/19- recs to cont wound vac. ID f/u. F/U surgery PRN only. Follow recs. Chronic pain syndrome 37 9990945 G89.4 On oxycontin 20/30 mg BID, oxycodone 5-10 mg q 4 hours PRN. PT/OT. Osteomyelitis 23983926 M 86.8X8 As above. Lovenox for DVT prophylaxi s. Pain of le ft shoulder joint 6326560359 6043819 M25.[address] Stevenson, pending possible injection this week. [id number] Janiya Gill, [employer] NURSE-C [facility] [address] [place] [address] 10/31/2022 11:45:13 11/03/2022 08:32:46 Pressure injury of sacral region of back 693551789 L89.159 Wound debrided x 2 in acute care. Imaging revealed osteo. Cultures grew e.coli - ID recs for 8 week course of doxycyclin e (end 11/08). Follow-up ID 10/24- recs to cont wound vac, f/u wound clinic. F/U surgery 10/19- recs to cont wound vac. F/U surgery PRN only. Follow recs. Cont PT/OT. Chronic pain syndrome 37 7418680 G89.4 On oxycontin 20/30 mg BID, oxycodone 5-10 mg q 4 hours PRN. PT/OT. Osteomyelitis 89748997 M 86.8X8 As above. Lovenox for DVT prophylaxi s. Will ask surgery of [place] to d/c lovenox. Pain of le ft shoulder joint 3836390556 2506067 M25.[address] Stevenson. Multiple sclerosis 89485 007 G35 Added to hx. On gabapentin , baclofen. PT/OT. Peripheral neuropathic pain 681477833 M79.2 On gabapentin . Neurogenic urinary bladder 954496195 N31.9 With chronic ontiveros. On methenamin e. Spastic tetraplegia 1929 02126 G82.50 As above. Dyslipidemia 509894129 E 78.5 Added to hx. Gastroesop hageal reflux disease without esophagitis 671675708 K21.9 On protonix. Pulmonary embolism 96575 003 I26.99 Added to hx. Janiya Gill NP-C [facility] [address] [facility] [place] [address] 11/02/2022 12:08:08 11/04/2022 10:50:51 Pressure injury of sacral region of back 830218006 L89.159 Wound debrided x 2 in acute care. Imaging revealed osteo. Cultures grew e.coli - ID recs for 8 week course of doxycyclin e (end 11/08). Follow-up ID 10/24- recs to cont wound vac, f/u wound clinic. F/U surgery 10/19- recs to cont wound vac. F/U surgery PRN only. Follow recs. Cont PT/OT. Chronic pain syndrome 37 7953498 G89.4 On oxycontin 20/30 mg BID, oxycodone 5-10 mg q 4 hours PRN. PT/OT. Osteomyelitis 95256163 M 86.8X8 As above. Lovenox for DVT prophylaxi s. Will ask surgery of [place] to d/c lovenox- waiting to hear back. REMEDIOS Troy [facility] [address] [place] [address] 11/09/2022 12:12:26 11/11/2022 14:36:33 Pressure injury of sacral region of back 456977046 L89.159 Wound debrided x 2 in acute care. Imaging revealed osteo. Cultures grew e.coli - ID recs for 8 week course of doxycyclin e (end 11/08). Follow-up ID 10/24- recs to cont wound vac, f/u wound clinic monthly. F/U surgery 10/19- recs to cont wound vac. F/U surgery PRN only. Follow recs. Cont PT/OT. Chronic pain syndrome 37 5156576 G89.4 On oxycontin 20/30 mg BID, oxycodone 5-10 mg q 4 hours PRN. PT/OT. Osteomyelitis 48997790 M 86.8X8 As above. Will d/c lovenox. Janiya Gill, BETTIE-C SIMEON MCCORMICK [address] [place] [place] [address] 11/11/2022 11:07:01 11/14/2022 16:02:52 Pressure injury of sacral region of back 760859811 L89.159 Wound debrided x 2 in acute care. Imaging revealed osteo. Cultures grew e.coli. Completed course of doxycyclin e 11/08. Follow-up ID 10/24- recs to cont wound vac, f/u wound clinic. F/U surgery 10/19- recs to cont wound vac. Pt now followed by wound clinic - q 2 weeks. Follow recs. Cont PT/OT. Chronic pain syndrome 37 4572373 G89.4 On oxycontin 20/30 mg BID, oxycodone 5-10 mg q 4 hours PRN. PT/OT. [id number] CARRIE TIMMONS MD [address] [place] [address] 11/22/2022 14:05:25 11/24/2022 12:54:52 Pressure injury of sacral region of back 148496065 L89.159 Large sacral decub with sacral osteomyeli tis by imaging. Continue antibacter ial dressing . Completed po doxy course 11/08. Weekly labs ordered including inflammato ry markers, which remain elevated. Followed by ID Dr Martinez Chronic pain syndrome 37 3618760 G89.4 Longstandi ng pain requiring opiates, currently Oxy ER 20 mg AM and 30 mg PM; and oxy IR 5 mg q4h prn. Resident is satisfied with pain management at [facility] Osteomyelitis 08887449 M 86.9 as above Multiple sclerosis 14869 007 G35 20+ years, sees neuro infrequent ly Neurogenic urinary bladder 166094951 N31.9 Continue Ontiveros, po methenamin e Peripheral neuropathic pain 713647582 M79.2 gabapentin 900 mg tidmonitor for pain relief Spastic tetraplegia 1929 28594 G82.50 meds as above Gastroesop hageal reflux disease without esophagitis 911237449 K21.9 protonix 40 mg qdmonitor for sxs [id number] REMEDIOS Troy [facility] [place] [address] [place] [address] 11/28/2022 11:55:38 11/30/2022 15:20:54 Pressure injury of sacral region of back 953316184 L89.159 Wound debrided x 2 in acute care. Imaging revealed osteo. Cultures grew e.coli. Completed course of doxycyclin e 11/08. Follow-up ID 10/24- recs to cont wound vac, f/u wound clinic. F/U surgery 10/19- recs to cont wound vac. Pt now followed by wound clinic - q 2 weeks. Follow recs. Cont PT/OT. Chronic pain syndrome 37 8318482 G89.4 On oxycontin 20/30 mg BID, oxycodone 5-10 mg q 4 hours PRN. PT/OT. [id number] REMEDIOS Troy [facility] [address] [place] [address] 12/05/2022 12:12:17 12/07/2022 12:09:04 Pressure injury of sacral region of back 786333703 L89.159 Wound debrided x 2 in acute care. Imaging revealed osteo. Cultures grew e.coli. Completed course of doxycyclin e 11/08. Follow-up ID 10/24- recs to cont wound vac, f/u wound clinic. F/U surgery 10/19- recs to cont wound vac. Pt followed by wound clinic - q 2 weeks. Nursing reports wound conts to improve. Cont PT/OT. Chronic pain syndrome 37 0602481 G89.4 On oxycontin 20/30 mg BID, oxycodone 5-10 mg q 4 hours PRN. PT/OT. COVID-19 514233831 U07.1 +3/3. Pt with chest congestion , cough. On paxlovid (end 12/07). SUpportive care. REM[facility] [place] [address] [place] [place] [address] 12/12/2022 12:36:03 12/21/2022 08:45:55 Pressure injury of sacral region of back 647081852 L89.159 Wound debrided x 2 in acute care. Imaging revealed osteo. Cultures grew e.coli. Completed course of doxycyclin e 11/08. Follow-up ID 10/24- recs to cont wound vac, f/u wound clinic. F/U surgery 10/19- recs to cont wound vac. Pt followed by wound clinic - q 2 weeks. Inflammato ry markers increased in setting of COVID. ID aware. Chronic pain syndrome 37 9211648 G89.4 On oxycontin 20/30 mg BID, oxycodone 5-10 mg q 4 hours PRN. COVID-19 556630049 U07.1 Appears resolved. Osteomyelitis 52862951 M 86.8X8 As above. Pain of le ft shoulder joint 0130837946 3101134 M25.[address] Stevenson. Multiple sclerosis 69275 007 G35 Added to hx. On gabapentin , baclofen. Peripheral neuropathic pain 670014038 M79.2 On gabapentin . Neurogenic urinary bladder 338763688 N31.9 With chronic ontiveros. On methenamin e. Spastic tetraplegia 1929 16232 G82.50 As above. Dyslipidemia 312733050 E 78.5 Added to hx. Gastroesop hageal reflux disease without esophagitis 496884153 K21.9 On protonix. Pulmonary embolism 50130 003 I26.99 Added to hx. [id number] REMEDIOS Troy [facility] [place] [address] [place] [address] 12/16/2022 13:27:52 12/21/2022 10:07:33 Chronic pain syndrome 118081636 G89.4 Pt reports increased back pain and increased shooting pain bilateral LEs. On oxycontin 20/30 mg BID, oxycodone 5-10 mg q 4 hours PRN, gabapentin 900 mg TID. Will increase oxycontin to 30 mg BID, gabapentin to 1200 mg TID. [id number] REMEDIOS [facility]el d [address] [facility] [place] [address] 12/19/2022 12:32:16 12/21/2022 10:46:04 Chronic pain syndrome 660837991 G89.4 On oxycontin 30 mg BID, oxycodone 5-10 mg q 4 hours PRN, gabapentin 1200 mg TID. Pt reports pain at baseline. Pressure i njury of sacral region of back [id number] L89.159 Wound debrided x 2 in acute care. Imaging revealed osteo. Cultures grew e.coli. Completed course of doxycyclin e 11/08. Follow-up ID 10/24- recs to cont wound vac, f/u wound clinic. F/U surgery 10/19- recs to cont wound vac. Pt followed by wound clinic - q 2 weeks. Nursing reports wound conts to improve. Cont PT/OT. [id number] [facility]al[facility] daniela COADEphilip bloom [address] [facility] [place] [address] 12/26/2022 12:27:35 12/30/2022 16:18:49 Chronic pain syndrome [id number] G89.4 On oxycontin 30 mg BID, oxycodone 5-10 mg q 4 hours PRN, gabapentin 900 mg TID. Pain at baseline. Anticipate d/c home in next 1-2 weeks. Pressure i njury of sacral region of back [id number] L89.159 Wound debrided x 2 in acute care. Imaging revealed osteo. Cultures grew e.coli. Completed course of doxycyclin e 11/08. Follow-up ID 10/24- recs to cont wound vac, f/u wound clinic. F/U surgery 10/19- recs to cont wound vac. Pt followed by wound clinic - q 2 weeks- next 12/28. Cont PT/OT. [id number] [facility] [address] [facility] [place] [address] 01/03/2023 12:35:16 01/05/2023 14:26:34 Chronic pain syndrome [id number] G89.4 On oxycontin 30 mg BID, oxycodone 5-10 mg q 4 hours PRN, gabapentin 900 mg TID. Pain at baseline. Follow-up outpatient . Pressure i njury of sacral region of back [id number] L89.159 Wound debrided x 2 in acute care. Imaging revealed osteo. Cultures grew e.coli. Completed course of doxycyclin e 11/08. Follow-up ID 10/24- recs to cont wound vac, f/u wound clinic. F/U surgery 10/19- recs to cont wound vac. Pt followed by wound clinic - q 2 weeks- 12/28 - awaiting consult note. Follow-up outpatient . Osteomyelitis [id number] M 86.8X8 As above. Follow-up outpatient . Multiple sclerosis 87826 007 G35 Added to hx. On gabapentin , baclofen. Follow-up outpatient . Peripheral neuropathic pain [id number] M79.2 On gabapentin . Follow-up outpatient . Neurogenic urinary bladder [id number] N31.9 With chronic ontiveros. On methenamin e. Follow-up outpatient . 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 Follow-up outpatient . Dyslipidemia [id number] E 78.5 Added to hx. Follow-up outpatient . Gastroesop hageal reflux disease without esophagitis [id number] K21.9 On protonix. Follow-up outpatient . Pulmonary embolism 44337 003 I26.99 Added to hx. Follow-up outpatient . Health Concerns Section Related Observation LastModified by Organization Detai ls LastModified Time None Recorded Concern Status LastModified by Organization Details LastModified Time None Recorded Advance Directives Directive None Recorded Payers Insurance Date Sequence Insurance Name Policy Number Policy Santillan Covered Member ID Santillan Member ID Guarantor Name 01/03/2023 2 [place] [facility] Jono Davey, Sr [id number] Jono Davey, 01/03/2023 1 [place] [employer] Jono Davey Sr [id number] Jono Davey, Sr Notes Date Note Type Note Provider Name and Address Organization Details Recorded Time 12/12/2022 text/html 62-year-old male with PMH of MS, chronic pain, sacral wound, spastic tetraplegia, neurogenic bladder with chronic ontiveros presented to acute care with possible sacral wound infection. Wound debrided x 2 and wound vac placed. Imaging revealed osteo. Cultures grew e.coli - ID recs for 8 week course of doxycycline (completed 2/7). Patient seen today for 90-day visit. Pt had COVID 3/. No concerns per nursing. Still skilled for wound care. [facility] [address] , [address], [place], [address], [employer] 12/12/2022 12:50:34 12/16/2022 text/html 62-year-old male with PMH of MS, chronic pain, sacral wound, spastic tetraplegia, neurogenic bladder with chronic ontiveros presented to acute care with possible sacral wound infection. Wound debrided x 2 and wound vac placed. Imaging revealed osteo. Cultures grew e.coli - ID recs for 8 week course of doxycycline (completed 11/08). Patient seen today for pain management. [facility] Troy [address] , [address], [place], [address], [employer] 12/16/2022 13:32:31 12/19/2022 text/html 62-year-old male with PMH of MS, chronic pain, sacral wound, spastic tetraplegia, neurogenic bladder with chronic ontiveros presented to acute care with possible sacral wound infection. Wound debrided x 2 and wound vac placed. Imaging revealed osteo. Cultures grew e.coli - ID recs for 8 week course of doxycycline (completed 11/08). Patient seen today for acute rounding visit; f/u pain management. Pt conts with neuropathic pain, left knee pain. [facility] [address] , [address], [place], [address], [employer] 12/19/2022 12:36:38 12/26/2022 text/html 62-year-old male with PMH of MS, chronic pain, sacral wound, spastic tetraplegia, neurogenic bladder with chronic ontiveros presented to acute care with possible sacral wound infection. Wound debrided x 2 and wound vac placed. Imaging revealed osteo. Cultures grew e.coli - ID recs for 8 week course of doxycycline (completed 11/08). Patient seen today for acute rounding visit; f/u pain management. Anticipate d/c home in next 1-2 weeks[address] [facility] [address], [place], [address], [facility] [employer] 12/26/2022 12:33:48 01/03/2023 text/html 62-year-old male with PMH of MS, chronic pain, sacral wound, spastic tetraplegia, neurogenic bladder with chronic ontiveros presented to acute care with possible sacral wound infection. Wound debrided x 2 and wound vac placed. Imaging revealed osteo. Cultures grew e.coli - ID recs for 8 week course of doxycycline (completed 11/08). Patient seen today for discharge. Janiya Gill, [employer]AL[employer] ASSURANCE NURSE-C [address] [facility], [address], [place], [address], [employer] [facility] 01/03/2023 12:43:59
--- OUTSIDE RECORDS SUMMARY | 2025-09-03 19:02 | XMS_ITS ---
[facility] Name [facility] Unknown History of Medication Use Medication Directions Dispensed Refills Start Date End Date Stat us amoxicillin-clavulanate (AUGMENTIN) 875-125 MG per tablet Take 1 tablet by mouth every 12 (twelve) hours. 09/26/2023 active polyethylene glycol (MIRALAX) 17 g packet Take 17 g by mouth. 10/06/2022 active docusate calcium (SURFAK) 240 MG capsule Take 100 mg by mouth. 03/03/2021 active baclofen (LIORESAL) 20 MG tablet Take 1 tablet (20 mg total) by mouth 3 (three) times a day. active cefuroxime (CEFTIN) 250 MG tablet Take 1 tablet (250 mg total) by mouth 2 (two) times a day. active Cholecalciferol 50 MCG (2000 UT) CAPS Take 1 capsule by mouth daily. active gabapentin (NEURONTIN) 300 MG capsule Take 1 capsule (300 mg total) by mouth 3 (three) times a day. active psyllium (METAMUCIL) 58.6 % packet Take 1 packet by mouth daily. active Problems Problem Status Onset Date Problem Type Date of Resoluti on Source Multiple sclerosis (HCC) active EncounterDiagnosisAct CTTHNE MG
--- OUTSIDE RECORDS SUMMARY | 2025-09-03 19:02 | XMS_ITS | Clinical Summary ---
Author Organization [facility] Address [address] [place] [address] Care Team Providers Care Loan Associate Name Role Phone Ambrocio Tenorio Primary Care Provider [phone] Allergies No known active allergies Medications gabapentin (NEURONTIN) 300 mg capsule Take 300 mg by mouth 3 times a day. 3 Active baclofen (LIORESAL) 20 mg tablet Take 20 mg by mouth 4 times a day. 3 Active docusate sodium (COLACE) 100 mg capsule Take 100 mg by mouth 2 times a day. Active cholecalcifero l (VITAMIN D3) 2,000 unit capsule Take 1 capsule by mouth once a day. Active cyanocobalamin (vitamin B-12) 1,000 mcg tablet Take 1,000 mcg by mouth once a day. Active acetaminophen (TYLENOL) 325 mg tablet Take 2 tablets (650 mg total) by mouth every 6 hours. 4 Active polyethylene glycol 3350 (MIRALAX) 17 gram packet Take 1 packet (17 g total) by mouth daily as needed for constipation. Mix powder in 4 to 8 oz of water, juice, coffee, or tea prior to administration. 4 Active ascorbic acid (VITAMIN C) 500 mg tablet Take 1 tablet (500 mg total) by mouth 2 times a day. Active cyclobenzaprin e (FLEXERIL) 10 mg tablet Take 1 tablet (10 mg total) by mouth 3 times a day. 90 tablet 5 Active sodium chloride 0.9% injection Infuse 10-30 mL intravenously See admin instructions. Active senna (SENOKOT) 8.6 mg tablet Take 1 tablet (8.6 mg total) by mouth nightly as needed for constipation. Active lidocaine (LIDODERM) 5% patch Apply 1 patch topically to the affected area once a day. Remove and discard patch within 12 hours or as directed. Active Hospital, Clinic, or Other Facility Administered Medication Ordered Dose Route Frequency Start Date End Date Status collagenase (SANTYL) ointment topical Once 08/14/2025 08/14/2025 Ended Active Problems Problem Noted Date Diagnosed Date Pressure injury of right ischium, stage 3 2024 Pyogenic inflammation of bone 02/17/2025 Decubitus ulcer of ischial a victor manuel, right, unspecified pressure ulcer stage 01/08/2025 Decubitus ulcer of right ischial area, unstageab le 12/11/2024 Wound infection 12/11/2023 Sacral osteomyelitis 12/11/2023 Polymicrobial bacterial infection 12/11/2023 Stage 4 skin ulcer of sacral region 10/05/2023 Multiple sclerosis 10/05/2023 Paraplegia 10/05/2023 Encounters Date Type Department Care Team Description 08/26/2025 Telephone [facility] [address] [place] [id number] Chart Picker: Merlin Tariq LPN 08/14/2025 1:00 PM EST Follow-Up [facility] [address] [id number] Chart Picker: Maira Cole PA Pressure injury of right ischium, stage 3 (HCC) (Primary Dx) 08/11/2025 Telephone [facility] [address] [address] Chart Picker: Jazmin Gaytan Telephone Intake, Staff 08/08/2025 [employer] Message [facility] Surgery [address] [place] [address] Chart Picker: Marj Ferrera PA No progress. from Last 3 Months Immunizations Immunization Administration Dates Next Due Influenza, Injectable, Quadrivalent, Preservativ e Free 11/22/2023 Family History Medical History Relation Name Comments Myocardial Infarction Father Cancer Mother Relation Name Status Comments Father Mother Social History Tobacco Use Types Packs/Day Years Used Date Smoking Tobacco: Former Cigarettes 1.5 25 1 984 - 2008 Smokeless Tobacco: Never Tobacco Cessation:Counseling Given: Not Answered Alcohol Use Standard Drinks/Week Comments Never 0 (1 standard drink = 0.6 oz pur e alcohol) [facility] Utilities Answer Date Recorded In the past 12 months has th e electric, gas, oil, or water company threatened to shut off services in your home? No 01/09/2025 Hunger Vital Sign Answer Date Recorded Within the past 12 months, y ou worried that your food would run out before you got the money to buy more. Never true 01/10/20 25 Within the past 12 months, t he food you bought just didn't last and you didn't have money to get more. Never true 01/09/2025 Transportation Answer Date Recorded In the past 12 months, has l ack of reliable transportation kept you from medical appointments, meetings, work or from getting things needed for daily living? No 01/09/2025 Housing Answer Date Recorded Housing Risk Low 2 01/08/2025 Housing Risk Medium Not on file 01/08/2025 Housing Risk High Not on file 01/08/2025 What is your living situation today? [facility] 01/08/2025 Sex and Gender Information Value Date Recorded Sex Assigned at Male 09/14/2023 11:24 AM EST Legal Sex Male 11:16 AM EST Gender Identity Male 09/14/2023 11:24 AM EST Sexual Orientation Straight 10/01/2023 6: 33 PM EST Last Filed Vital Signs Vital Sign Reading Time Taken Comments Blood Pressure 116/77 01/30/2025 4:32 PM EDT Pulse 79 01/30/2025 4:32 PM EDT Temperature 36.3 C (97.3 F) 01/30/2025 4:32 PM EDT Respiratory Rate 16 01/30/2025 4:58 PM EDT Oxygen Saturation 97% 01/30/2025 4:32 PM EDT Inhaled Oxygen Concentration - - Weight 89 kg (196 lb 3.4 oz) 01/20/2025 2:52 PM EDT Height 185.4 cm (6' 1 ) 01/08/2025 12:10 PM EDT Body Mass Index 25.89 01/08/2025 12:10 PM EDT Plan of Treatment Upcoming Encounters Date Type Department Care Team (Late st Contact Info) Description 09/11/2025 2:00 PM EST Follow-Up [facility] [address] [place] [address] Chart Picker: Janiya Sanchez NP [address] [place] [address] Health Maintenance Due Date Last Done Comments Cologuard 1961 Colon Cancer Screening 1961 Colonoscopy 1961 FOBT / Fit Test 1961 HIV Screening 1961 Hepatitis C Screening 1961 Sigmoidoscopy 1961 Medicare AWV 1962 Zoster Vaccines (1 of 2) 2011 DTaP,Tdap,and Td Vaccines (1 - Tdap) 06/09/2017 06/08/2017 Pneumococcal Vaccine: 50+ Years (3 of 3 - PCV20 or PCV21) 11/02/2022 11/02/2017, 07/27/2016 Alcohol/Substance Use Screening 10/02/2024 Depression Screening and Follow-Up 10/02/2024 Influenza Vaccine (#1) 2025 , 11/22/2023, 08/11/2022, Additional history exists COVID-19 Vaccine ( - season) 2025 10/19/2023, 09/13/2021, 01/20/2021, Additional history exists Social Drivers of Health Annual Screening 01/09/2026 01/09/2025 Diabetes Screening 02/11/2028 02/10/2025, 0 02/03/2025, 02/03/2025, Additional history exists RSV Vaccine (60+ years old and patients) (1 - 1-dose 75+ series) 2036 Hepatitis B Vaccines Aged Out No long er eligible based on patient's age to complete this topic Procedures * Due to [place] [email or web address] law, this organization might not be sharing negative HIV tests. Procedure Name Priority Date/Time Associated Diagnosis Comments COMPREHENSIVE METABOLIC PANEL, OUTSIDE LAB Routine 02/10/2025 10:21 AM EDT from Last 3 Months or Most Recently Relevant to Health Maintenance Results * Due to [place] [email or web address] law, this organization might not be sharing negative HIV tests. * Comprehensive Metabolic Panel, Outside Lab (02/10/2025 10:21 AM EDT) Blood Structure of peripheral vein / Unknown us Kayleigh [facility] BLOOD ORDERABLES Final Re sult from Last 3 Months or Most Recently Relevant to Health [place] [id number] Advance Directives Documents on File Type Date Recorded Patient Steel Erector Expl anation Health Care Proxy 11/15/2023 11:47 AM Loida Davey 1 11-29-2021 Health Care Proxy 11/11/2023 2:38 PM 09-28 Health Care Proxy 11/10/2023 4:05 PM 2021 * Full Code (Latest Code Status on File) Date Activated Date Inactivated Comments 01/08/2025 12:02 PM 01/30/2025 9:00 PM * Presumed Full Code Date Activated Date Inactivated Comments 11/01/2023 5:50 PM 11/22/2023 2:03 PM * Full Code Date Activated Date Inactivated Comments 11/01/2023 1:02 PM 11/01/2023 5:50 PM Healthcare Agents on File Name Relationship Healthcare Agent Relationship Communication Loida Doulgasig Daughter Health Care Agent Cori Douglasig Other Alternate Health Care Agent Care Teams Loan Associate Relationship Specialty Start Date End Date Ambrocio Tenorio [address] [place] [address] PCP - General 09/14/23
--- OUTSIDE RECORDS SUMMARY | 2025-09-03 19:02 | XMS_ITS | Clinical Summary ---
Author Organization [facility] Prior to 03/01/25 Address [address] [place] [address] Care Team Providers Care Warp Drawer Name Role Phone David Combs MD Primary Care Provider [phone] Allergies No known active allergies Medications Medication Sig Dispensed Refills Start Date End Date Status docusate calcium (SURFAK) 240 MG capsule Take 100 mg by mouth. 0 03/03/2021 Active polyethylene glycol (MIRALAX) 17 g packet Take 17 g by mouth. 0 10/06/2022 Active amoxicillin-clavulanat e (AUGMENTIN) 875-125 MG per tablet Take 1 tablet by mouth every 12 (twelve) hours. 0 09/26/2023 Active Cholecalciferol 50 MCG (2000 UT) CAPS Take 1 capsule by mouth daily. 0 Active gabapentin (NEURONTIN) 300 MG capsule Take 1 capsule (300 mg total) by mouth 3 (three) times a day. 0 Active baclofen (LIORESAL) 20 MG tablet Take 1 tablet (20 mg total) by mouth 3 (three) times a day. 0 Active cefuroxime (CEFTIN) 250 MG tablet Take 1 tablet (250 mg total) by mouth 2 (two) times a day. 0 Active psyllium (METAMUCIL) 58.6 % packet Take 1 packet by mouth daily. 0 Active Social History Tobacco Use Types Packs/Day Years Used Date Smoking Tobacco: Former Cigarettes Smokeless Tobacco: Never Tobacco Cessation:Counseling Given: Not Answered Alcohol Use Standard Drinks/Week Comments Never 0 (1 standard drink = 0.6 oz pur e alcohol) Sex and Gender Information Value Date Recorded Sex Assigned at Male 09/28/2023 1:53 PM EST Gender Identity Not on file Sexual Orientation Not on file Job Start Date Occupation Industry Not on file Not on file Not on file Last Filed Vital Signs Vital Sign Reading Time Taken Comments Blood Pressure 124/78 10/11/2023 3:09 PM EST Pulse 67 10/11/2023 3:09 PM EST Temperature 36.9 C (98.4 F) 10/11/2023 3:09 PM EST Respiratory Rate - - Oxygen Saturation 98% 10/11/2023 3:09 PM EST Inhaled Oxygen Concentration - - Weight 99.8 kg (220 lb) 10/11/2023 3:09 PM EST Height 185.4 cm (6' 1 ) 10/11/2023 3:09 PM EST Body Mass Index 29.03 10/11/2023 3:09 PM EST Plan of Treatment Health Maintenance Due Date Last Done Comments Hepatitis C Screening 1961 COVID-19 Vaccine (#1) 02/28/1962 Depression Screening 1973 BMI Counseling 1979 Preventative Health Evaluation 1979 Colon Cancer Screening (Colonoscopy) 2006 Shingrix-Zoster Vaccine (1 of 2) 2011 DTap / Tdap / Td (1 - Tdap) 06/09/2017 06/08/2017 Influenza Vaccine (#1) 2025 4, 08/11/2022, 07/12/2021, Additional history exists Pneumococcal Vaccine (3 of 3 - PPSV23 or PCV20) 2026 11/02/2017, 07/27/2016 RSV Adult > 60+ Yrs or (1 - 1-dose 75+ series) 2036 Pneumococcal Vaccine Aged Out 11/02/2017, 07/27/20 16 No longer eligible based on patient's age to complete this topic Hepatitis B Vaccines Aged Out No long er eligible based on patient's age to complete this topic RSV Ped < 20 months Aged Out No longe r eligible based on patient's age to complete this topic Care Teams Warp Drawer Relationship Specialty Start Date End Date David Combs MD [address] [place] [address] PCP - General Neurology 09/28/23
--- OUTSIDE RECORDS SUMMARY | 2025-09-03 19:02 | XMS_ITS | Encounter Summary ---
Author Organization [facility] Address [address] [place] [address] Care Team Providers Care Hand Mounter Name Role Phone Ambrocio Tenorio Primary Care Provider [phone] Encounter Details Date Type Department Care Team (Late st Contact Info) Description 08/08/2025 myChart Message [facility] Plastic Cosmetic Surgery [address] [place] [address] Crm Architect: Marj Ferrera PA [address] [place] [address] No progress. Social History Tobacco Use Types Packs/Day Years Used Date Smoking Tobacco: Former Cigarettes 1.5 25 - 2008 Smokeless Tobacco: Never Alcohol Use Standard Drinks/Week Comments Never 0 (1 standard drink = 0.6 oz pur e alcohol) [facility] Utilities Answer Date Recorded In the past 12 months has e electric, gas, oil, or water company [...] Orientation Straight 10/01/2023 6: 33 PM EST documented as of this encounter Miscellaneous Notes * Telephone Encounter - Nancy Iglesias - 08/11/2025 11:11 AM EST Called pt and LVM to return clinics call to schedule. documented in this encounter Plan of Treatment Upcoming Encounters Date Type Department Care Team (Late st Contact Info) Description 09/11/2025 2:00 PM EST Follow-Up [facility] [address] [place] [address] Crm Architect: Janiya Sanchez NP [address] [place] [address] documented as of this encounter Visit Diagnoses Not on filedocumented in this encounter Care Teams Hand Mounter Relationship Specialty Start Date End Date Ambrocio Tenorio [address] [place] [address] PCP - General 09/14/23 documented as of this encounter
--- OUTSIDE RECORDS SUMMARY | 2025-09-03 19:02 | XMS_ITS | Encounter Summary ---
Author Organization [facility] Address [address] [place] [address] Care Team Providers Care Appeals Coordinator Name Role Phone Ambrocio Tenorio Primary Care Provider [phone] Encounter Details Date Type Department Care Team (Late st Contact Info) Description 12/15/2024 [employer] Message Intial Department [address] [place] [address] Jct, Generic Provider [address] [place], [place] [id number] Questionnaire Submission Social History Tobacco Use Types Packs/Day Years Used Date Smoking Tobacco: Former Cigarettes 1.5 25 1 984 - 2008 Smokeless Tobacco: Never Alcohol Use Standard Drinks/Week Comments Never 0 (1 standard drink = 0.6 oz pur e alcohol) Sex and Gender Information Value Date Recorded Sex Assigned at Male 09/14/2023 11:24 AM EST Legal Sex Male 11:16 AM EST Gender Identity Male 09/14/2023 11:24 AM EST Sexual Orientation Straight 10/01/2023 6: 33 PM EST documented as of this encounter Plan of Treatment Upcoming Encounters Date Type Department Care Team (Late st Contact Info) Description 09/11/2025 2:00 PM EST Follow-Up [facility] [address] [place] [address] Jockey'S Agent: Janiya Sanchez, REAL ESTATE LISTING CONSULTANT [address] [place] [address] documented as of this encounter Visit Diagnoses Not on filedocumented in this encounter Care Teams Appeals Coordinator Relationship Specialty Start Date End Date Ambrocio Tenorio [address] [place] [address] PCP - General 09/14/23 documented as of this encounter
--- NOTE | 2025-09-03 19:15 | PC.NURSE ---
This RN assumed pt care @ 1900. Pt a&ox4, no signs of distress Plan of care ongoing.
== END 2025-09-03 21:29 | disposition home or self-care (01) ==
PROVIDERS: Emergency Provider Emergency Medicine; PCP Nurse Practitioner Family
DX: T83.84XA Pain due to genitourinary prosthetic devices, implants and grafts, initial encounter (principal); G82.20 Paraplegia, unspecified; G35.D Multiple sclerosis, unspecified; Q54.1 Hypospadias, penile; Z99.3 Dependence on wheelchair; Z79.899 Other long term (current) drug therapy
CPT/HCPCS: 81001; 87086; 99283